=== PATIENT | male | born 1945 | race Caucasian/White ===

== ENCOUNTER 2017-04-30 09:17 | Inpatient (IN) | payer MEDICARE, OTHER ==
[~2017-04-30] VITALS: Ht 180.3 cm; Wt 85.3 kg
[2017-04-30] MEDS ORDERED: ACETAMINOPHEN 325 MG TABLET PO PRN (10:15)
[2017-04-30] MEDS ORDERED: MAG HYDROX/AL HYDROX/SIMETH 30 ML ORAL.SUSP PO PRN (10:15)
[2017-04-30] MEDS ORDERED: METHYL SALICYLATE/MENTHOL TOPICAL OINTMENT 29GM TUBE. TP PRN (10:15)
[2017-04-30 11:43] VITALS: BP 118/70
[2017-04-30] MEDS ORDERED: CALC-30 PO (11:49)
[2017-04-30] MEDS ORDERED: DOCU-109 PO (11:49)
[2017-04-30] MEDS ORDERED: OLAN5TAB5 PO (11:49)
[2017-04-30] MEDS ORDERED: DONE10TA61 PO (11:49)
[2017-04-30] MEDS ORDERED: MEMA1CAP3 PO (11:49)
[2017-04-30] MEDS ORDERED: SERT50TA PO (11:49)
[2017-04-30 13:46] LABS: BASO # 0.1 x10^3/uL (0.0-0.2); BASO % 1 % (0-3); EOS # 0.3 x10^3/uL (0.0-0.7); EOS % 5 % (0-3); HEMATOCRIT 36.5 % (39.0-53.0); LYMPH # 1.8 x10^3/uL (1.0-4.8); LYMPH % 31 % (24-48); MEAN CORPUSCULAR HEMOGLOBIN 30 pg (25-35); MEAN CORPUSCULAR HGB CONC 33 g/dL (31-37); MEAN CORPUSCULAR VOLUME 90 fL (79-100); MONO # 0.6 x10^3/uL (0.0-1.1); MONO % 10 % (0-9); NEUT % 53 % (31-73); PLATELET COUNT 67 x10^3/uL (140-400); RED BLOOD COUNT 4.06 x10^6/uL (4.30-5.70); RED CELL DISTRIBUTION WIDTH 15.5 % (11.5-14.5); WHITE BLOOD COUNT 5.8 x10^3/uL (4.0-11.0)
[2017-04-30 13:51] LABS: ALBUMIN 3.4 g/dL (3.4-5.0); ALBUMIN/GLOBULIN RATIO 0.9 (1.0-1.7); CALCIUM 8.9 mg/dL (8.5-10.1); CREATININE 1.3 mg/dL (0.7-1.3); GFR 54.4; MAGNESIUM 2.1 mg/dL (1.8-2.4); TOTAL BILIRUBIN 0.4 mg/dL (0.2-1.0); TOTAL PROTEIN 7.1 g/dL (6.4-8.2)
[2017-04-30] MEDS: NICOTINE 21MG PATCH. TD SCH (13:59)
[2017-04-30 14:22] LABS: PLT ESTIMATE DECREASED (ADEQUATE)
[2017-04-30 15:36] VITALS: BP 115/63
[2017-04-30] MEDS: CALCIUM CARB/VIT D3 500/200 TABLET PO SCH (17:40)
--- NOTE | 2017-04-30 19:18 | HP ---
ADMIT DATE: 04/30/2017 PSYCHIATRIC ADMISSION HISTORY/EVALUATION This note covers elements not covered in my initial note of 04/30/2017. IDENTIFYING DATA: The patient is a 71-year-old male referred to us from the Emergency Room at [facility] where he presented from the [facility] on account of increasing agitation, aggression after he "shoved a staff member." He is noncompliant with medications and redirections. He has failed outpatient psychiatric interventions. Initially information we received from the ER indicated that he was quite redirectable in the ER. I was called around 6:00 a.m. this morning. After reviewing all the information, we contacted the ER physician at [facility]. Reportedly, the patient while in the ER has been increasingly agitated, aggressive, disruptive. Received an IM atypical antipsychotic antianxiety agent to help him. He is referred for inpatient psychiatric stabilization. CHIEF COMPLAINT: "No." HISTORY OF PRESENT ILLNESS: The patient has a history of dementia, Alzheimer's vascular type. He has been residing at [place] for a short period of time prior to which he was living at home. He has been increasingly agitated, aggressive, having sleep and appetite changes. No active suicidal or homicidal ideation. No clear history of bipolar disorder. PAST PSYCHIATRIC HISTORY: As above. MEDICAL HISTORY: Peripheral arterial disease, hyperlipidemia, thrombocytopenia, and osteoarthritis. CODE STATUS: Full code. ALLERGIES: Negative. DIET: Regular finger foods. The patient takes bites of anything he is offered. Medications crushed in applesauce. CURRENT PSYCHOTROPICS: Aricept 10 mg a day, Namzaric 28/10 mg ER at bedtime, Zyprexa p.r.n., Zoloft 50 mg a day. As noted below, we have added Seroquel 12.5 mg at 9 a.m. and 2 p.m. to help with his mood lability. FAMILY HISTORY: Noncontributory. SOCIAL HISTORY: No history of alcohol, drug abuse, physical, sexual or elder abuse. He is not known to be a perpetrator. MENTAL STATUS EXAMINATION: The patient was seen individually the evening of 04/30/2017. He is oriented to himself. Insight, judgment, recent and remote memory, attention, concentration, fund of knowledge poor, consistent with his diagnosis. He is difficult to discern anything. The patient speaks verbally, quite disorganized, loose associations. REVIEW OF SYSTEMS: Reviewed. ASSETS: Stable living at the above facility, supportive family. REACTION TO HOSPITALIZATION: The patient oblivious to this. IMPRESSION: Major neurocognitive disorder, Alzheimer, vascular with depression, delusion, behavioral disturbance; anxiety disorder, unspecified; impulse control disorder, unspecified. Rest diagnoses unchanged from admission. TREATMENT PLAN: Admit to Geropsychiatry Unit at [facility]. I will see the patient daily individually from a psychiatric standpoint. Medical followup per Dr. Tellez/Dr. Jimenez. Continue the patient on his current psychotropics. Add the Seroquel as noted. Observe baseline. Make further changes as clinically indicated. JAKE SHIN MD DR: SHERON/nts JOB#: [id number] / [id number]
--- NOTE | 2017-04-30 19:58 | PDOC ---
Exam Note: Yifan Note: Please also refer to the separate dictated note~for this date of service dictated separately.~Patient seen individually. Discussed the patient with Nursing staff reviewed the chart.~Reviewed interim history and current functioning. Reviewed vital signs,~Labs/ Radiology~and current medications noted below. Continue current treatment with the changes noted in the dictated addendum note Assessment: Vital Signs: Vital Signs Date Time Temp Pulse Resp B/P (MAP) Pulse Ox O2 Delivery O2 Flow Rate FiO2 04/30/17 15:36 97.3 71 21 115/63 (80) 97 Labs: Laboratory Tests Test 04/30/17 13:24 White Blood Count 5.8 x10^3/uL (4.0-11.0) Red Blood Count 4.06 x10^6/uL (4.30-5.70) L Hemoglobin 12.0 g/dL (13.0-17.5) L Hematocrit 36.5 % (39.0-53.0) L Mean Corpuscular Volume 90 fL (79-100) Mean Corpuscular Hemoglobin 30 pg (25-35) Mean Corpuscular Hemoglobin Concent 33 g/dL (31-37) Red Cell Distribution Width 15.5 % (11.5-14.5) H Platelet Count 67 x10^3/uL (140-400) L Neutrophils (%) (Auto) 53 % (31-73) Lymphocytes (%) (Auto) 31 % (24-48) Monocytes (%) (Auto) 10 % (0-9) H Eosinophils (%) (Auto) 5 % (0-3) H Basophils (%) (Auto) 1 % (0-3) Neutrophils # (Auto) 3.0 x10^3uL (1.8-7.7) Lymphocytes # (Auto) 1.8 x10^3/uL (1.0-4.8) Monocytes # (Auto) 0.6 x10^3/uL (0.0-1.1) Eosinophils # (Auto) 0.3 x10^3/uL (0.0-0.7) Basophils # (Auto) 0.1 x10^3/uL (0.0-0.2) Platelet Estimate Decreased (ADEQUATE) Large Platelets Occ Sodium Level 144 mmol/L (136-145) Potassium Level 4.0 mmol/L (3.5-5.1) Chloride Level 109 mmol/L (98-107) H Carbon Dioxide Level 28 mmol/L (21-32) Anion Gap 7 (6-14) Blood Urea Nitrogen 28 mg/dL (8-26) H Creatinine 1.3 mg/dL (0.7-1.3) Estimated GFR (Cockcroft-Gault) 54.4 BUN/Creatinine Ratio 22 (6-20) H Glucose Level 85 mg/dL (70-99) Calcium Level 8.9 mg/dL (8.5-10.1) Magnesium Level 2.1 mg/dL (1.8-2.4) Total Bilirubin 0.4 mg/dL (0.2-1.0) Aspartate Amino Transferase (AST) 40 U/L (15-37) H Alanine Aminotransferase (ALT) 40 U/L (16-63) Alkaline Phosphatase 102 U/L (46-116) Total Protein 7.1 g/dL (6.4-8.2) Albumin 3.4 g/dL (3.4-5.0) Albumin/Globulin Ratio 0.9 (1.0-1.7) L Current Medications: Meds: Current Medications Acetaminophen (Tylenol) 650 mg PRN Q6HRS PRN PO PAIN / TEMP; Start 04/30/17 at 10:15 Multi-Ingredient Ointment (Analgesic [place]) 1 asha PRN QID PRN TP MUSCLE PAIN; Start 04/30/17 at 10:15 Al Hydroxide/Mg Hydroxide (Mylanta Plus Xs) 15 ml PRN AFTMEALHC PRN PO DYSPEPSIA; Start 04/30/17 at 10:15 Magnesium Hydroxide (Milk Of Magnesia) 2,400 mg PRN QHS PRN PO CONSTIPATION; Start 04/30/17 at 10:15 Nicotine (Nicoderm Cq 21mg) 1 patch DAILY TD Last administered on 04/30/17at 13: 59; Start 04/30/17 at 11:00 Olanzapine (ZyPREXA ZYDIS) 5 mg PRN Q2HR PRN PO ANXIETY / AGITATION; Start 04/30 at 11:45 Docusate Sodium (Colace) 100 mg BID PO ; Start 04/30/17 at 21:00 Donepezil HCl (Aricept) 10 mg QHS PO ; Start 04/30/17 at 21:00; Stop 04/30/17 at 21:00; Status DC Sertraline HCl (Zoloft) 50 mg DAILY PO ; Start 05/01/17 at 09:00 Calcium/Vitamin D (Oscal D 500mg/ 200uts) 1 tab BIDWMEALS PO Last administered on 04/30/17at 17:40; Start 04/30/17 at 17:00 Memantine (Namenda) 10 mg BID PO ; Start 04/30/17 at 21:00 Donepezil HCl (Aricept) 10 mg BID PO ; Start 04/30/17 at 21:00 Quetiapine Fumarate (SEROquel) 12.5 mg BID92 PO ; Start 05/01/17 at 09:00 Active Scripts Active Reported Zoloft (Sertraline Hcl) 50 Mg Tablet 50 Mg PO DAILY Colace (Docusate Sodium) 100 Mg Capsule 100 Mg PO BID Aricept (Donepezil Hcl) 10 Mg Tablet 10 Mg PO QHS Calcium 500 + Vit D 400 Tablet (Calcium Carbonate/Vitamin D3) 1 Each Tablet 1 Each PO BID Namzaric 28 mg-10 mg Capsule (Memantine HCl/Donepezil HCl) 1 Each Cap.spr.24 1 Each PO QHS I have reviewed the current psychotropics carefully including drug interactions. Risk benefit ratio favors no change other than as noted in my dictated progress note. Diagnosis: Problems: (1) Anxiety disorder (2) Dementia in Alzheimer's disease with delusions (3) Dementia in Alzheimer's disease with depression (4) Dementia, vascular, with delusions (5) Dementia, vascular, with depression (6) Impulse control disorder JAKE SHIN MD Apr 30, 2017 19:58
[2017-04-30] MEDS: DOCUSATE SODIUM 100 MG CAPSULE PO SCH (20:30)
[2017-04-30] MEDS: DONEPEZIL HCL 10 MG TABLET PO SCH (20:30)
[2017-04-30] MEDS: MEMANTINE 10 MG TABLET. PO SCH (20:30)
[2017-04-30] MEDS ORDERED: DONEPEZIL HCL 10 MG TABLET PO SCH (21:00)
[2017-05-01] MEDS ORDERED: OLAN5TAB9 PO (02:22)
[2017-05-01 03:16] LABS: HEMOGLOBIN A1C 5.3 % (4.8-5.6)
[2017-05-01 06:13] LABS: T3 TOTAL 98 ng/dL (71-180); THYROXINE 5.6 ug/dL (4.5-12.0)
[2017-05-01] MEDS: NICOTINE 21MG PATCH. TD SCH (09:31)
[2017-05-01] MEDS: CALCIUM CARB/VIT D3 500/200 TABLET PO SCH ×2 (09:31→13:57)
[2017-05-01] MEDS: QUEtiapine 25 MG TABLET. PO SCH ×3 (09:31→19:48)
[2017-05-01] MEDS: DOCUSATE SODIUM 100 MG CAPSULE PO SCH ×2 (09:31→19:46)
[2017-05-01] MEDS: DONEPEZIL HCL 10 MG TABLET PO SCH (09:31)
[2017-05-01] MEDS: MEMANTINE 10 MG TABLET. PO SCH (09:31)
[2017-05-01] MEDS: SERTRALINE 50 MG TABLET. PO SCH (09:31)
[2017-05-01 15:16] LABS: THYROID STIM HORMONE (TSH) 1.638 uIU/mL (0.358-3.740)
[2017-05-01 15:46] VITALS: BP 111/69
[2017-05-01] MEDS: OLANZapine 2.5 MG TABLET PO SCH (19:47)
--- NOTE | 2017-05-01 20:09 | PDOC ---
Exam Note: Yifan Note: Please also refer to the separate dictated note~for this date of service dictated separately.~Patient seen individually. Discussed the patient with Nursing staff reviewed the chart.~Reviewed interim history and current functioning. Reviewed vital signs,~Labs/ Radiology~and current medications noted below. Continue current treatment with the changes noted in the dictated addendum note Assessment: Vital Signs: Vital Signs Date Time Temp Pulse Resp B/P (MAP) Pulse Ox O2 Delivery O2 Flow Rate FiO2 05/01/17 15:46 98.0 81 16 111/69 (83) 97 I&O Intake and Output 05/01/17 07:00 Intake Total 240 ml Balance 240 ml Intake Oral 240 ml Current Medications: Meds: Current Medications Acetaminophen (Tylenol) 650 mg PRN Q6HRS PRN PO PAIN / TEMP; Start 04/30/17 at 10:15 Multi-Ingredient Ointment (Analgesic [place]) 1 asha PRN QID PRN TP MUSCLE PAIN; Start 04/30/17 at 10:15 Al Hydroxide/Mg Hydroxide (Mylanta Plus Xs) 15 ml PRN AFTMEALHC PRN PO DYSPEPSIA; Start 04/30/17 at 10:15 Magnesium Hydroxide (Milk Of Magnesia) 2,400 mg PRN QHS PRN PO CONSTIPATION; Start 04/30/17 at 10:15 Nicotine (Nicoderm Cq 21mg) 1 patch DAILY TD Last administered on 05/01/17at 09: 31; Start 04/30/17 at 11:00 Olanzapine (ZyPREXA ZYDIS) 5 mg PRN Q2HR PRN PO ANXIETY / AGITATION Last administered on 05/01/17at 17:48; Start 04/30/17 at 11:45 Docusate Sodium (Colace) 100 mg BID PO Last administered on 05/01/17at 19:46; Start 04/30/17 at 21:00 Donepezil HCl (Aricept) 10 mg QHS PO ; Start 04/30/17 at 21:00; Stop 04/30/17 at 21:00; Status DC Sertraline HCl (Zoloft) 50 mg DAILY PO Last administered on 05/01/17at 09:31; Start 05/01/17 at 09:00 Calcium/Vitamin D (Oscal D 500mg/ 200uts) 1 tab BIDWMEALS PO Last administered on 05/01/17 13:57; Start 04/30/17 at 17:00 Memantine (Namenda) 10 mg BID PO Last administered on 05/01/17 09:31; Start 04/30/17 at 21:00; Stop 05/01/17 at 18:16; Status DC Donepezil HCl (Aricept) 10 mg BID PO Last administered on 05/01/17 09:31; Start 04/30/17 at 21:00; Stop 05/01/17 at 18:16; Status DC Quetiapine Fumarate (SEROquel) 12.5 mg BID92 PO Last administered on 05/01/17 13:56; Start 05/01/17 at 09:00; Stop 05/01/17 at 18:16; Status DC Olanzapine (ZyPREXA) 2.5 mg HS PO Last administered on 05/01/17 19:47; Start at 21:00 Quetiapine Fumarate (SEROquel) 12.5 mg QID PO Last administered on 05/01/17at 19: 48; Start 05/01/17 at 21:00 Active Scripts Active Reported Olanzapine 5 Mg Tablet 2.5 Mg PO HS Zoloft (Sertraline Hcl) 50 Mg Tablet 50 Mg PO DAILY Colace (Docusate Sodium) 100 Mg Capsule 100 Mg PO BID Aricept (Donepezil Hcl) 10 Mg Tablet 10 Mg PO QHS Calcium 500 + Vit D 400 Tablet (Calcium Carbonate/Vitamin D3) 1 Each Tablet 1 Each PO BID Namzaric 28 mg-10 mg Capsule (Memantine HCl/Donepezil HCl) 1 Each Cap.spr.24 1 Each PO QHS I have reviewed the current psychotropics carefully including drug interactions. Risk benefit ratio favors no change other than as noted in my dictated progress note. Diagnosis: Problems: (1) Anxiety disorder (2) Dementia in Alzheimer's disease with delusions (3) Dementia in Alzheimer's disease with depression (4) Dementia, vascular, with delusions (5) Dementia, vascular, with depression (6) Impulse control disorder JAKE SHIN MD May 01, 2017 20:09
[2017-05-02 05:41] VITALS: BP 120/65
[2017-05-02] MEDS: DOCUSATE SODIUM 100 MG CAPSULE PO SCH ×2 (07:59→19:46)
[2017-05-02] MEDS: NICOTINE 21MG PATCH. TD SCH (07:59)
[2017-05-02] MEDS: QUEtiapine 25 MG TABLET. PO SCH ×4 (07:59→19:47)
[2017-05-02] MEDS: CALCIUM CARB/VIT D3 500/200 TABLET PO SCH ×2 (07:59→17:21)
[2017-05-02] MEDS: SERTRALINE 50 MG TABLET. PO SCH (07:59)
[2017-05-02 15:43] VITALS: BP 102/74
[2017-05-02] MEDS: OLANZapine 2.5 MG TABLET PO SCH (19:46)
--- NOTE | 2017-05-02 22:10 | PDOC ---
Exam Note: Yifan Note: Please also refer to the separate dictated note~for this date of service dictated separately.~Patient seen individually. Discussed the patient with Nursing staff reviewed the chart.~Reviewed interim history and current functioning. Reviewed vital signs,~Labs/ Radiology~and current medications noted below. Continue current treatment with the changes noted in the dictated addendum note Assessment: Vital Signs: Vital Signs Date Time Temp Pulse Resp B/P (MAP) Pulse Ox O2 Delivery O2 Flow Rate FiO2 05/02/17 15:43 97.2 77 20 102/74 (83) 95 Room Air I&O Intake and Output 05/02/17 06:59 Intake Total 780 ml Balance 780 ml Intake Oral 780 ml Current Medications: Meds: Current Medications Acetaminophen (Tylenol) 650 mg PRN Q6HRS PRN PO PAIN / TEMP; Start 04/30/17 at 10:15 Multi-Ingredient Ointment (Analgesic [place]) 1 asha PRN QID PRN TP MUSCLE PAIN; Start 04/30/17 at 10:15 Al Hydroxide/Mg Hydroxide (Mylanta Plus Xs) 15 ml PRN AFTMEALHC PRN PO DYSPEPSIA; Start 04/30/17 at 10:15 Magnesium Hydroxide (Milk Of Magnesia) 2,400 mg PRN QHS PRN PO CONSTIPATION; Start 04/30/17 at 10:15 Nicotine (Nicoderm Cq 21mg) 1 patch DAILY TD Last administered on 05/02/17at 07: 59; Start 04/30/17 at 11:00 Olanzapine (ZyPREXA ZYDIS) 5 mg PRN Q2HR PRN PO ANXIETY / AGITATION Last administered on 05/02/17at 00:00; Start 04/30/17 at 11:45 Docusate Sodium (Colace) 100 mg BID PO Last administered on 05/02/17at 19:46; Start 04/30/17 at 21:00 Donepezil HCl (Aricept) 10 mg QHS PO ; Start 04/30/17 at 21:00; Stop 04/30/17 at 21:00; Status DC Sertraline HCl (Zoloft) 50 mg DAILY PO Last administered on 05/02/17at 07:59; Start 05/01/17 at 09:00 Calcium/Vitamin D (Oscal D 500mg/ 200uts) 1 tab BIDWMEALS PO Last administered on 05/02/17at 17:21; Start 04/30/17 at 17:00 Memantine (Namenda) 10 mg BID PO Last administered on 05/01/17at 09:31; Start 04/30/17 at 21:00; Stop 05/01/17 at 18:16; Status DC Donepezil HCl (Aricept) 10 mg BID PO Last administered on 05/01/17at 09:31; Start 04/30/17 at 21:00; Stop 05/01/17 at 18:16; Status DC Quetiapine Fumarate (SEROquel) 12.5 mg BID92 PO Last administered on 05/01/17at 13:56; Start 05/01/17 at 09:00; Stop 05/01/17 at 18:16; Status DC Olanzapine (ZyPREXA) 2.5 mg HS PO Last administered on 05/02/17at 19:46; Start at 21:00 Quetiapine Fumarate (SEROquel) 12.5 mg QID PO Last administered on 05/02/17at 19: 47; Start 05/01/17 at 21:00 Active Scripts Active Reported Olanzapine 5 Mg Tablet 2.5 Mg PO HS Zoloft (Sertraline Hcl) 50 Mg Tablet 50 Mg PO DAILY Colace (Docusate Sodium) 100 Mg Capsule 100 Mg PO BID Aricept (Donepezil Hcl) 10 Mg Tablet 10 Mg PO QHS Calcium 500 + Vit D 400 Tablet (Calcium Carbonate/Vitamin D3) 1 Each Tablet 1 Each PO BID Namzaric 28 mg-10 mg Capsule (Memantine HCl/Donepezil HCl) 1 Each Cap.spr.24 1 Each PO QHS I have reviewed the current psychotropics carefully including drug interactions. Risk benefit ratio favors no change other than as noted in my dictated progress note. Diagnosis: Problems: (1) Anxiety disorder (2) Dementia in Alzheimer's disease with delusions (3) Dementia in Alzheimer's disease with depression (4) Dementia, vascular, with delusions (5) Dementia, vascular, with depression (6) Impulse control disorder JAKE SHIN MD May 02, 2017 22:10
[2017-05-03] MEDS: NICOTINE 21MG PATCH. TD SCH (10:01)
[2017-05-03] MEDS: QUEtiapine 25 MG TABLET. PO SCH ×4 (10:02→19:38)
[2017-05-03] MEDS: CALCIUM CARB/VIT D3 500/200 TABLET PO SCH ×2 (10:02→16:41)
[2017-05-03] MEDS: DOCUSATE SODIUM 100 MG CAPSULE PO SCH ×2 (10:02→19:38)
[2017-05-03] MEDS: SERTRALINE 50 MG TABLET. PO SCH (10:03)
[2017-05-03 16:23] VITALS: BP 176/91
[2017-05-03] MEDS: OLANZapine 2.5 MG TABLET PO SCH (19:38)
--- NOTE | 2017-05-03 19:38 | PN ---
DATE: 05/01/2017 PSYCHIATRIC PROGRESS NOTE This late entry of 05/01/2017 covers elements not covered in my initial note for 05/01/2017. SUBJECTIVE: I met with the patient evening of 05/01/2017. Discussed with nursing staff on two separate occasions earlier in the day after I was paged as an emergency on account of the patient's increased agitation. He has been agitated, aggressive, knocking, banging on the doors and trying to open them, banging on the nursing station wall throughout, threatened to throw the dinner out of the dinner cart, slept 5-1/2 hours previous evening, received Zyprexa Zydis x 2. REVIEW OF SYSTEMS: No CV, , pulmonary, eye, ENT system symptoms on review. Reliability poor. MENTAL STATUS EXAM: Oriented to himself. Insight, judgment, recent and remote memory, attention, concentration, fund of knowledge poor, consistent with his diagnosis. Extremely agitated, restless, labile. LABORATORY DATA: Reviewed. IMPRESSION: Major neurocognitive disorder, Alzheimer, vascular with depression, delusion, behavioral disturbance. Rest unchanged. PLAN: Increase Seroquel from 12.5 mg b.i.d. to 12.5 mg 4 times a day. Maintain rest of the psychotropics unchanged. Stop Aricept and Namenda, probably little therapeutic benefit at this stage of his dementia. MAN Tiago SHIN MD DR: SHERON/thuna JOB#: [id number] / [id number]
[2017-05-03] MEDS: traZODone 50 MG TABLET. PO PRN (19:42)
--- NOTE | 2017-05-03 19:45 | PN ---
DATE: 05/02/2017 This note covers the elements not covered in my initial note 05/02/2017. SUBJECTIVE: I met with the patient in the evening of 05/02/2017. The patient slept 3-1/4 hours previous evening. Previous night he was agitated with cares, aggressive, resistive to cares during the day today, not been physically hitting staff, compliant with medications, banging on the doors in the hallway and nursing station glass wall. Restless, anxious. REVIEW OF SYSTEMS: No CV, , pulmonary, eye, ENT system symptoms on review. Reliability poor. MENTAL STATUS EXAM: Oriented to himself. Insight, judgment, recent and remote memory, attention, concentration, fund of knowledge poor, consistent with his diagnosis. IMPRESSION: Major neurocognitive disorder, Alzheimer, vascular with depression, delusion, behavioral disturbance. Rest unchanged. PLAN: Continue psychotropics mentioned in my initial note. Adjust as indicated clinically. JAKE SHIN MD DR: SHERON/thuan JOB#: [id number] / [id number]
--- NOTE | 2017-05-03 20:13 | PDOC ---
Exam Note: Yifan Note: Please also refer to the separate dictated note~for this date of service dictated separately.~Patient seen individually. Discussed the patient with Nursing staff reviewed the chart.~Reviewed interim history and current functioning. Reviewed vital signs,~Labs/ Radiology~and current medications noted below. Continue current treatment with the changes noted in the dictated addendum note Assessment: Vital Signs: Vital Signs Date Time Temp Pulse Resp B/P (MAP) Pulse Ox O2 Delivery O2 Flow Rate FiO2 05/03/17 16:23 97.2 89 22 176/91 (119) 99 Room Air I&O Intake and Output 05/03/17 07:00 Intake Total 60 ml Balance 60 ml Intake Oral 60 ml # Voids 2 # Bowel Movements 1 Current Medications: Meds: Current Medications Acetaminophen (Tylenol) 650 mg PRN Q6HRS PRN PO PAIN / TEMP; Start 04/30/17 at 10:15 Multi-Ingredient Ointment (Analgesic [place]) 1 asha PRN QID PRN TP MUSCLE PAIN; Start 04/30/17 at 10:15 Al Hydroxide/Mg Hydroxide (Mylanta Plus Xs) 15 ml PRN AFTMEALHC PRN PO DYSPEPSIA; Start 04/30/17 at 10:15 Magnesium Hydroxide (Milk Of Magnesia) 2,400 mg PRN QHS PRN PO CONSTIPATION; Start 04/30/17 at 10:15 Nicotine (Nicoderm Cq 21mg) 1 patch DAILY TD Last administered on 05/03/17at 10: 01; Start 04/30/17 at 11:00 Olanzapine (ZyPREXA ZYDIS) 5 mg PRN Q2HR PRN PO ANXIETY / AGITATION Last administered on 05/02/17at 00:00; Start 04/30/17 at 11:45 Docusate Sodium (Colace) 100 mg BID PO Last administered on 05/03/17at 19:38; Start 04/30/17 at 21:00 Donepezil HCl (Aricept) 10 mg QHS PO ; Start 04/30/17 at 21:00; Stop 04/30/17 at 21:00; Status DC Sertraline HCl (Zoloft) 50 mg DAILY PO Last administered on 05/03/17at 10:03; Start 05/01/17 at 09:00 Calcium/Vitamin D (Oscal D 500mg/ 200uts) 1 tab BIDWMEALS PO Last administered on 05/03/17 16:41; Start 04/30/17 at 17:00 Memantine (Namenda) 10 mg BID PO Last administered on 05/01/17 09:31; Start 04/30/17 at 21:00; Stop 05/01/17 at 18:16; Status DC Donepezil HCl (Aricept) 10 mg BID PO Last administered on 05/01/17 09:31; Start 04/30/17 at 21:00; Stop 05/01/17 at 18:16; Status DC Quetiapine Fumarate (SEROquel) 12.5 mg BID92 PO Last administered on 05/01/17 13:56; Start 05/01/17 at 09:00; Stop 05/01/17 at 18:16; Status DC Olanzapine (ZyPREXA) 2.5 mg HS PO Last administered on 05/03/17at 19:38; Start at 21:00 Quetiapine Fumarate (SEROquel) 12.5 mg QID PO Last administered on 05/03/17 19: 38; Start 05/01/17 at 21:00 Mirtazapine (Remeron) 7.5 mg QHS PO Last administered on 05/03/17 19:41; Start 05/03/17 at 21:00 Trazodone HCl (Desyrel) 50 mg PRN QHS PRN PO INSOMNIA Last administered on 19:42; Start 05/03/17 at 18:15 Active Scripts Active Reported Olanzapine 5 Mg Tablet 2.5 Mg PO HS Zoloft (Sertraline Hcl) 50 Mg Tablet 50 Mg PO DAILY Colace (Docusate Sodium) 100 Mg Capsule 100 Mg PO BID Aricept (Donepezil Hcl) 10 Mg Tablet 10 Mg PO QHS Calcium 500 + Vit D 400 Tablet (Calcium Carbonate/Vitamin D3) 1 Each Tablet 1 Each PO BID Namzaric 28 mg-10 mg Capsule (Memantine HCl/Donepezil HCl) 1 Each Cap.spr.24 1 Each PO QHS I have reviewed the current psychotropics carefully including drug interactions. Risk benefit ratio favors no change other than as noted in my dictated progress note. Diagnosis: Problems: (1) Anxiety disorder (2) Dementia in Alzheimer's disease with delusions (3) Dementia in Alzheimer's disease with depression (4) Dementia, vascular, with delusions (5) Dementia, vascular, with depression (6) Impulse control disorder JAKE SHIN MD May 03, 2017 20:13
[2017-05-03] MEDS ORDERED: MIRTAZAPINE 7.5 MG TABLET. PO SCH (21:00)
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
[2017-05-04] MEDS: DOCUSATE SODIUM 100 MG CAPSULE PO SCH ×2 (08:26→20:17)
[2017-05-04] MEDS: QUEtiapine 25 MG TABLET. PO SCH ×4 (08:26→20:18)
[2017-05-04] MEDS: NICOTINE 21MG PATCH. TD SCH (08:26)
[2017-05-04] MEDS: SERTRALINE 50 MG TABLET. PO SCH (08:28)
[2017-05-04] MEDS: CALCIUM CARB/VIT D3 500/200 TABLET PO SCH ×2 (08:28→16:18)
[2017-05-04 15:32] VITALS: BP 157/70
--- NOTE | 2017-05-04 20:04 | PDOC ---
Exam Note: Yifan Note: Please also refer to the separate dictated note~for this date of service dictated separately.~Patient seen individually. Discussed the patient with Nursing staff reviewed the chart.~Reviewed interim history and current functioning. Reviewed vital signs,~Labs/ Radiology~and current medications noted below. Continue current treatment with the changes noted in the dictated addendum note Assessment: Vital Signs: Vital Signs Date Time Temp Pulse Resp B/P (MAP) Pulse Ox O2 Delivery O2 Flow Rate FiO2 05/04/17 15:32 97.4 82 20 157/70 (99) 100 05/03/17 16:23 Room Air I&O Intake and Output 05/04/17 07:00 Intake Total 600 ml Balance 600 ml Intake Oral 600 ml Current Medications: Meds: Current Medications Acetaminophen (Tylenol) 650 mg PRN Q6HRS PRN PO PAIN / TEMP; Start 04/30/17 at 10:15 Multi-Ingredient Ointment (Analgesic [place]) 1 asha PRN QID PRN TP MUSCLE PAIN; Start 04/30/17 at 10:15 Al Hydroxide/Mg Hydroxide (Mylanta Plus Xs) 15 ml PRN AFTMEALHC PRN PO DYSPEPSIA; Start 04/30/17 at 10:15 Magnesium Hydroxide (Milk Of Magnesia) 2,400 mg PRN QHS PRN PO CONSTIPATION; Start 04/30/17 at 10:15 Nicotine (Nicoderm Cq 21mg) 1 patch DAILY TD Last administered on 05/04/17at 08: 26; Start 04/30/17 at 11:00 Olanzapine (ZyPREXA ZYDIS) 5 mg PRN Q2HR PRN PO ANXIETY / AGITATION Last administered on 05/04/17at 14:57; Start 04/30/17 at 11:45 Docusate Sodium (Colace) 100 mg BID PO Last administered on 05/04/17at 08:26; Start 04/30/17 at 21:00 Donepezil HCl (Aricept) 10 mg QHS PO ; Start 04/30/17 at 21:00; Stop 04/30/17 at 21:00; Status DC Sertraline HCl (Zoloft) 50 mg DAILY PO Last administered on 05/04/17at 08:28; Start 05/01/17 at 09:00 Calcium/Vitamin D (Oscal D 500mg/ 200uts) 1 tab BIDWMEALS PO Last administered on 05/04/17 08:28; Start 04/30/17 at 17:00 Memantine (Namenda) 10 mg BID PO Last administered on 05/01/17at 09:31; Start 04/30/17 at 21:00; Stop 05/01/17 at 18:16; Status DC Donepezil HCl (Aricept) 10 mg BID PO Last administered on 05/01/17 09:31; Start 04/30/17 at 21:00; Stop 05/01/17 at 18:16; Status DC Quetiapine Fumarate (SEROquel) 12.5 mg BID92 PO Last administered on 05/01/17at 13:56; Start 05/01/17 at 09:00; Stop 05/01/17 at 18:16; Status DC Olanzapine (ZyPREXA) 2.5 mg HS PO Last administered on 05/03/17at 19:38; Start at 21:00 Quetiapine Fumarate (SEROquel) 12.5 mg QID PO Last administered on 05/04/17at 17: 02; Start 05/01/17 at 21:00; Stop 05/04/17 at 18:04; Status DC Mirtazapine (Remeron) 7.5 mg QHS PO Last administered on 05/03/17at 19:41; Start 05/03/17 at 21:00; Stop 05/04/17 at 18:04; Status DC Trazodone HCl (Desyrel) 50 mg PRN QHS PRN PO INSOMNIA Last administered on at 19:42; Start 05/03/17 at 18:15 Mirtazapine (Remeron) 15 mg QHS PO ; Start 05/04/17 at 21:00 Quetiapine Fumarate (SEROquel) 12.5 mg BID@1300,2100 PO ; Start 05/04/17 at 21:00 Quetiapine Fumarate (SEROquel) 25 mg BID@0900,1700 PO ; Start 05/05/17 at 09:00 Active Scripts Active Reported Olanzapine 5 Mg Tablet 2.5 Mg PO HS Zoloft (Sertraline Hcl) 50 Mg Tablet 50 Mg PO DAILY Colace (Docusate Sodium) 100 Mg Capsule 100 Mg PO BID Aricept (Donepezil Hcl) 10 Mg Tablet 10 Mg PO QHS Calcium 500 + Vit D 400 Tablet (Calcium Carbonate/Vitamin D3) 1 Each Tablet 1 Each PO BID Namzaric 28 mg-10 mg Capsule (Memantine HCl/Donepezil HCl) 1 Each Cap.spr.24 1 Each PO QHS I have reviewed the current psychotropics carefully including drug interactions. Risk benefit ratio favors no change other than as noted in my dictated progress note. Diagnosis: Problems: (1) Anxiety disorder (2) Dementia in Alzheimer's disease with delusions (3) Dementia in Alzheimer's disease with depression (4) Dementia, vascular, with delusions (5) Dementia, vascular, with depression (6) Impulse control disorder JAEK SHIN MD May 04, 2017 20:04
[2017-05-04] MEDS: OLANZapine 2.5 MG TABLET PO SCH (20:18)
[2017-05-04] MEDS: MIRTAZAPINE 15 MG TABLET PO SCH (20:20)
[2017-05-04] MEDS: traZODone 50 MG TABLET. PO PRN (20:20)
--- NOTE | 2017-05-05 02:37 | PN ---
DATE: 05/03/2017 This is a late entry for 05/03/2017 covers elements not covered in my initial note of 05/03/2017. SUBJECTIVE: I met with the patient in the evening of 05/03/2017. Overall, per nursing report, the patient remains confused, but is doing better. In the morning, he had to be isolated in the [place], resistive with changing his clothes. Previous evening, he was combative with showers, quite disruptive, less door checking noted on 05/03/2017. He slept just 1-3/4 hours previous evening. REVIEW OF SYSTEMS: No CV, , pulmonary, eye, ENT system symptoms on review. Reliability poor. MENTAL STATUS EXAM: Oriented to himself. Insight, judgment, recent and remote memory, attention, concentration, fund of knowledge poor, consistent with his diagnosis mentioned in my initial note. IMPRESSION: Major neurocognitive disorder, Alzheimer, vascular with depression, delusion, behavioral disturbance. Rest unchanged. PLAN: Continue psychotropics mentioned in my initial note, start Remeron 7.5 mg p.o. at bedtime, trazodone 50 mg at bedtime p.r.n., may repeat x 1 for insomnia. Adjust further as clinically indicated. JAKE SHIN MD DR: SHERON/thuan JOB#: [id number] / [id number]
[2017-05-05 06:16] VITALS: BP 109/70
[2017-05-05] MEDS: DOCUSATE SODIUM 100 MG CAPSULE PO SCH ×3 (10:20→21:01)
[2017-05-05] MEDS: CALCIUM CARB/VIT D3 500/200 TABLET PO SCH ×2 (10:20→16:57)
[2017-05-05] MEDS: QUEtiapine 25 MG TABLET. PO SCH ×4 (10:20→21:01)
[2017-05-05] MEDS: SERTRALINE 50 MG TABLET. PO SCH (10:20)
[2017-05-05] MEDS: NICOTINE 21MG PATCH. TD SCH (10:29)
--- NOTE | 2017-05-05 20:06 | PDOC ---
Exam Note: Yifan Note: Please also refer to the separate dictated note~for this date of service dictated separately.~Patient seen individually. Discussed the patient with Nursing staff reviewed the chart.~Reviewed interim history and current functioning. Reviewed vital signs,~Labs/ Radiology~and current medications noted below. Continue current treatment with the changes noted in the dictated addendum note Assessment: Vital Signs: Vital Signs Date Time Temp Pulse Resp B/P (MAP) Pulse Ox O2 Delivery O2 Flow Rate FiO2 05/05/17 16:08 98.0 83 19 98 05/05/17 06:16 109/70 (83) 05/03/17 16:23 Room Air I&O Intake and Output 05/05/17 07:00 Intake Total 360 ml Balance 360 ml Intake Oral 360 ml Current Medications: Meds: Current Medications Acetaminophen (Tylenol) 650 mg PRN Q6HRS PRN PO PAIN / TEMP; Start 04/30/17 at 10:15 Multi-Ingredient Ointment (Analgesic [place]) 1 asha PRN QID PRN TP MUSCLE PAIN; Start 04/30/17 at 10:15 Al Hydroxide/Mg Hydroxide (Mylanta Plus Xs) 15 ml PRN AFTMEALHC PRN PO DYSPEPSIA; Start 04/30/17 at 10:15 Magnesium Hydroxide (Milk Of Magnesia) 2,400 mg PRN QHS PRN PO CONSTIPATION; Start 04/30/17 at 10:15 Nicotine (Nicoderm Cq 21mg) 1 patch DAILY TD Last administered on 05/05/17at 10: 29; Start 04/30/17 at 11:00 Olanzapine (ZyPREXA ZYDIS) 5 mg PRN Q2HR PRN PO ANXIETY / AGITATION Last administered on 05/04/17at 14:57; Start 04/30/17 at 11:45 Docusate Sodium (Colace) 100 mg BID PO Last administered on 05/04/17at 20:17; Start 04/30/17 at 21:00 Donepezil HCl (Aricept) 10 mg QHS PO ; Start 04/30/17 at 21:00; Stop 04/30/17 at 21:00; Status DC Sertraline HCl (Zoloft) 50 mg DAILY PO Last administered on 05/04/17at 08:28; Start 05/01/17 at 09:00; Stop 05/05/17 at 19:11; Status DC Calcium/Vitamin D (Oscal D 500mg/ 200uts) 1 tab BIDWMEALS PO Last administered on 05/05/17 16:57; Start 04/30/17 at 17:00 Memantine (Namenda) 10 mg BID PO Last administered on 05/01/17 09:31; Start 04/30/17 at 21:00; Stop 05/01/17 at 18:16; Status DC Donepezil HCl (Aricept) 10 mg BID PO Last administered on 05/01/17 09:31; Start 04/30/17 at 21:00; Stop 05/01/17 at 18:16; Status DC Quetiapine Fumarate (SEROquel) 12.5 mg BID92 PO Last administered on 05/01/17 13:56; Start 05/01/17 at 09:00; Stop 05/01/17 at 18:16; Status DC Olanzapine (ZyPREXA) 2.5 mg HS PO Last administered on 05/04/17 20:18; Start at 21:00 Quetiapine Fumarate (SEROquel) 12.5 mg QID PO Last administered on 05/04/17 17: 02; Start 05/01/17 at 21:00; Stop 05/04/17 at 18:04; Status DC Mirtazapine (Remeron) 7.5 mg QHS PO Last administered on 05/03/17at 19:41; Start 05/03/17 at 21:00; Stop 05/04/17 at 18:04; Status DC Trazodone HCl (Desyrel) 50 mg PRN QHS PRN PO INSOMNIA Last administered on at 20:20; Start 05/03/17 at 18:15; Stop 05/05/17 at 19:11; Status DC Mirtazapine (Remeron) 15 mg QHS PO Last administered on 05/04/17at 20:20; Start 05/04/17 at 21:00 Quetiapine Fumarate (SEROquel) 12.5 mg BID@1300,2100 PO Last administered on 05/05/17at 12:59; Start 05/04/17 at 21:00 Quetiapine Fumarate (SEROquel) 25 mg BID@0900,1700 PO Last administered on at 16:57; Start 05/05/17 at 09:00 Sertraline HCl (Zoloft) 75 mg DAILY PO ; Start 05/06/17 at 09:00 Trazodone HCl (Desyrel) 100 mg PRN QHS PRN PO INSOMNIA/MAY REPEAT X1; Start 05/05/17 at 19:30 Active Scripts Active Reported Olanzapine 5 Mg Tablet 2.5 Mg PO HS Zoloft (Sertraline Hcl) 50 Mg Tablet 50 Mg PO DAILY Colace (Docusate Sodium) 100 Mg Capsule 100 Mg PO BID Aricept (Donepezil Hcl) 10 Mg Tablet 10 Mg PO QHS Calcium 500 + Vit D 400 Tablet (Calcium Carbonate/Vitamin D3) 1 Each Tablet 1 Each PO BID Namzaric 28 mg-10 mg Capsule (Memantine HCl/Donepezil HCl) 1 Each Cap.spr.24 1 Each PO QHS I have reviewed the current psychotropics carefully including drug interactions. Risk benefit ratio favors no change other than as noted in my dictated progress note. Diagnosis: Problems: (1) Anxiety disorder (2) Dementia in Alzheimer's disease with delusions (3) Dementia in Alzheimer's disease with depression (4) Dementia, vascular, with delusions (5) Dementia, vascular, with depression (6) Impulse control disorder JAKE SHIN MD May 05, 2017 20:06
[2017-05-05] MEDS: MIRTAZAPINE 15 MG TABLET PO SCH (21:00)
[2017-05-05] MEDS: OLANZapine 2.5 MG TABLET PO SCH (21:01)
[2017-05-06] MEDS: traZODone 100 MG TABLET. PO PRN ×2 (00:52→23:22)
[2017-05-06 06:20] VITALS: BP 127/63
--- NOTE | 2017-05-06 08:43 | PN ---
DATE: 05/04/2017 This is a late entry 05/04/2017 covers elements not covered in my initial note 05/04/2017. I met with the patient in the evening of 05/04/2017. Per the patient, he [place] most [place] the [place], agitated, labile in his mood banging his head on the wall, at times resistive to get out of bed, takes his meds in ice cream. Slept 4-1/2 hours previous evening. REVIEW OF SYSTEMS: No CV, , pulmonary, eye, ENT system symptoms on review. Reliability poor. MENTAL STATUS EXAM: Oriented to himself. Insight, judgment, recent and remote memory, attention, concentration, fund of knowledge poor, consistent with his diagnosis mentioned in my initial note. IMPRESSION: Major neurocognitive disorder, Alzheimer, vascular with depression, delusion, behavioral disturbance. Rest unchanged from initial note. PLAN: Increase Remeron to 15 mg at bedtime, Seroquel is 12.5 mg 4 times a day and we will increase the 0900 and 1700 dosages to 25 mg, leave the other 2 dosages 12.5 mg. Maintain rest of the psychotropics including Zoloft 50 mg a day. JAKE SHIN MD DR: SHERON/thuan JOB#: [id number] / [id number]
[2017-05-06] MEDS: QUEtiapine 25 MG TABLET. PO SCH ×4 (09:33→19:44)
[2017-05-06] MEDS: DOCUSATE SODIUM 100 MG CAPSULE PO SCH ×2 (09:33→19:43)
[2017-05-06] MEDS: NICOTINE 21MG PATCH. TD SCH (09:33)
[2017-05-06] MEDS: CALCIUM CARB/VIT D3 500/200 TABLET PO SCH ×2 (09:33→16:46)
[2017-05-06] MEDS: SERTRALINE 50 MG TABLET. PO SCH (09:35)
[2017-05-06 16:14] VITALS: BP 132/74
[2017-05-06] MEDS: OLANZapine 2.5 MG TABLET PO SCH (19:44)
[2017-05-06] MEDS: MIRTAZAPINE 15 MG TABLET PO SCH (19:44)
[2017-05-06] MEDS: MELATONIN 3 MG TABLET PO SCH (19:45)
--- NOTE | 2017-05-06 19:48 | PDOC ---
Exam Note: Yifan Note: Please also refer to the separate dictated note~for this date of service dictated separately.~Patient seen individually. Discussed the patient with Nursing staff reviewed the chart.~Reviewed interim history and current functioning. Reviewed vital signs,~Labs/ Radiology~and current medications noted below. Continue current treatment with the changes noted in the dictated addendum note Assessment: Vital Signs: Vital Signs Date Time Temp Pulse Resp B/P (MAP) Pulse Ox O2 Delivery O2 Flow Rate FiO2 05/06/17 16:14 97.8 84 18 132/74 (93) 95 05/03/17 16:23 Room Air I&O Intake and Output 05/06/17 07:00 Intake Total 840 ml Balance 840 ml Intake Oral 840 ml Current Medications: Meds: Current Medications Acetaminophen (Tylenol) 650 mg PRN Q6HRS PRN PO PAIN / TEMP; Start 04/30/17 at 10:15 Multi-Ingredient Ointment (Analgesic [place]) 1 asha PRN QID PRN TP MUSCLE PAIN; Start 04/30/17 at 10:15 Al Hydroxide/Mg Hydroxide (Mylanta Plus Xs) 15 ml PRN AFTMEALHC PRN PO DYSPEPSIA; Start 04/30/17 at 10:15 Magnesium Hydroxide (Milk Of Magnesia) 2,400 mg PRN QHS PRN PO CONSTIPATION; Start 04/30/17 at 10:15 Nicotine (Nicoderm Cq 21mg) 1 patch DAILY TD Last administered on 05/06/17at 09: 33; Start 04/30/17 at 11:00 Olanzapine (ZyPREXA ZYDIS) 5 mg PRN Q2HR PRN PO ANXIETY / AGITATION Last administered on 05/06/17at 02:46; Start 04/30/17 at 11:45 Docusate Sodium (Colace) 100 mg BID PO Last administered on 05/06/17at 19:43; Start 04/30/17 at 21:00 Donepezil HCl (Aricept) 10 mg QHS PO ; Start 04/30/17 at 21:00; Stop 04/30/17 at 21:00; Status DC Sertraline HCl (Zoloft) 50 mg DAILY PO Last administered on 05/04/17at 08:28; Start 05/01/17 at 09:00; Stop 05/05/17 at 19:11; Status DC Calcium/Vitamin D (Oscal D 500mg/ 200uts) 1 tab BIDWMEALS PO Last administered on 05/06/17at 16:46; Start 04/30/17 at 17:00 Memantine (Namenda) 10 mg BID PO Last administered on 05/01/17at 09:31; Start 04/30/17 at 21:00; Stop 05/01/17 at 18:16; Status DC Donepezil HCl (Aricept) 10 mg BID PO Last administered on 05/01/17at 09:31; Start 04/30/17 at 21:00; Stop 05/01/17 at 18:16; Status DC Quetiapine Fumarate (SEROquel) 12.5 mg BID92 PO Last administered on 05/01/17at 13:56; Start 05/01/17 at 09:00; Stop 05/01/17 at 18:16; Status DC Olanzapine (ZyPREXA) 2.5 mg HS PO Last administered on 05/06/17at 19:44; Start 05/01/17 at 21:00 Quetiapine Fumarate (SEROquel) 12.5 mg QID PO Last administered on 05/04/17at 17: 02; Start 05/01/17 at 21:00; Stop 05/04/17 at 18:04; Status DC Mirtazapine (Remeron) 7.5 mg QHS PO Last administered on 05/03/17at 19:41; Start 05/03/17 at 21:00; Stop 05/04/17 at 18:04; Status DC Trazodone HCl (Desyrel) 50 mg PRN QHS PRN PO INSOMNIA Last administered on at 20:20; Start 05/03/17 at 18:15; Stop 05/05/17 at 19:11; Status DC Mirtazapine (Remeron) 15 mg QHS PO Last administered on 05/06/17at 19:44; Start 05/04/17 at 21:00 Quetiapine Fumarate (SEROquel) 12.5 mg BID@1300,2100 PO Last administered on 02/11at 19:44; Start 05/04/17 at 21:00 Quetiapine Fumarate (SEROquel) 25 mg BID@0900,1700 PO Last administered on 05/06at 16:46; Start 05/05/17 at 09:00 Sertraline HCl (Zoloft) 75 mg DAILY PO Last administered on 05/06/17at 09:35; Start 05/06/17 at 09:00 Trazodone HCl (Desyrel) 100 mg PRN QHS PRN PO INSOMNIA/MAY REPEAT X1 Last administered on 05/06/17at 00:52; Start 05/05/17 at 19:30 Melatonin 3 mg QHS PO Last administered on 05/06/17at 19:45; Start 05/06/17 at 21:00 Active Scripts Active Reported Olanzapine 5 Mg Tablet 2.5 Mg PO HS Zoloft (Sertraline Hcl) 50 Mg Tablet 50 Mg PO DAILY Colace (Docusate Sodium) 100 Mg Capsule 100 Mg PO BID Aricept (Donepezil Hcl) 10 Mg Tablet 10 Mg PO QHS Calcium 500 + Vit D 400 Tablet (Calcium Carbonate/Vitamin D3) 1 Each Tablet 1 Each PO BID Namzaric 28 mg-10 mg Capsule (Memantine HCl/Donepezil HCl) 1 Each Cap.spr.24 1 Each PO QHS I have reviewed the current psychotropics carefully including drug interactions. Risk benefit ratio favors no change other than as noted in my dictated progress note. Diagnosis: Problems: (1) Anxiety disorder (2) Dementia in Alzheimer's disease with delusions (3) Dementia in Alzheimer's disease with depression (4) Dementia, vascular, with delusions (5) Dementia, vascular, with depression (6) Impulse control disorder JAKE SHIN MD May 06, 2017 19:48
--- NOTE | 2017-05-07 03:58 | PN ---
DATE: 05/05/2017 This is a late entry for 05/05/2017, covers elements not covered in my initial note of 05/05/2017. SUBJECTIVE: I met with the patient the evening of 05/05/2017. The patient slept less than 1 hour last night, but then made up with sleeping well into the morning until 11:30 a.m. on 05/05/2016. All night he was up wandering, remains confused. REVIEW OF SYSTEMS: No CV, , pulmonary, eye, ENT system symptoms on review. Reliability poor. MENTAL STATUS EXAMINATION: Oriented to himself. Insight, judgment, recent and remote memory, attention, concentration, fund of knowledge poor, consistent with his diagnosis mentioned in my initial note. IMPRESSION: Major neurocognitive disorder, Alzheimer, vascular with depression, delusion, behavioral disturbance. Rest unchanged. PLAN: Increase Zoloft from 50 mg a day to 75 mg a day; trazodone from 50 mg at bedtime p.r.n., may repeat x 1, to 100 mg at bedtime p.r.n., may repeat x 1. Continue rest unchanged including Seroquel. Adjust further as clinically indicated. MAN Tiago SHIN MD DR: SHERON/thuan JOB#: [id number] / [id number]
[2017-05-07 06:00] VITALS: BP 109/71
[2017-05-07] MEDS: MAGNESIUM HYDROXIDE 2,400 MG/30 ML ORAL.SUSP. PO PRN (09:12)
[2017-05-07] MEDS: CALCIUM CARB/VIT D3 500/200 TABLET PO SCH ×2 (09:12→16:43)
[2017-05-07] MEDS: NICOTINE 21MG PATCH. TD SCH (09:12)
[2017-05-07] MEDS: DOCUSATE SODIUM 100 MG CAPSULE PO SCH ×2 (09:12→20:06)
[2017-05-07] MEDS: QUEtiapine 25 MG TABLET. PO SCH ×4 (09:13→20:07)
[2017-05-07] MEDS: SERTRALINE 50 MG TABLET. PO SCH (09:13)
[2017-05-07 09:15] LABS: BASO # 0.1 x10^3/uL (0.0-0.2); BASO % 1 % (0-3); EOS # 0.3 x10^3/uL (0.0-0.7); EOS % 4 % (0-3); HEMATOCRIT 35.2 % (39.0-53.0); HEMOGLOBIN 11.7 g/dL (13.0-17.5); LYMPH # 1.9 x10^3/uL (1.0-4.8); LYMPH % 29 % (24-48); MEAN CORPUSCULAR HEMOGLOBIN 30 pg (25-35); MEAN CORPUSCULAR HGB CONC 33 g/dL (31-37); MEAN CORPUSCULAR VOLUME 91 fL (79-100); MONO # 0.8 x10^3/uL (0.0-1.1); MONO % 12 % (0-9); NEUT # 3.6 x10^3uL (1.8-7.7); NEUT % 55 % (31-73); PLATELET COUNT 83 x10^3/uL (140-400); RED BLOOD COUNT 3.88 x10^6/uL (4.30-5.70); RED CELL DISTRIBUTION WIDTH 15.2 % (11.5-14.5); WHITE BLOOD COUNT 6.6 x10^3/uL (4.0-11.0)
[2017-05-07 09:35] LABS: ALBUMIN 3.6 g/dL (3.4-5.0); ALBUMIN/GLOBULIN RATIO 0.9 (1.0-1.7); CALCIUM 9.4 mg/dL (8.5-10.1); CREATININE 1.6 mg/dL (0.7-1.3); GFR 42.8; POTASSIUM 3.8 mmol/L (3.5-5.1); TOTAL BILIRUBIN 0.5 mg/dL (0.2-1.0); TOTAL PROTEIN 7.5 g/dL (6.4-8.2)
[2017-05-07] MEDS: DIVALPROEX 125 MG CAP.SPRINK PO SCH (13:10)
[2017-05-07 15:47] VITALS: BP 106/70
--- NOTE | 2017-05-07 19:57 | PDOC ---
Exam Note: Yifan Note: Please also refer to the separate dictated note~for this date of service dictated separately.~Patient seen individually. Discussed the patient with Nursing staff reviewed the chart.~Reviewed interim history and current functioning. Reviewed vital signs,~Labs/ Radiology~and current medications noted below. Continue current treatment with the changes noted in the dictated addendum note Assessment: Vital Signs: Vital Signs Date Time Temp Pulse Resp B/P (MAP) Pulse Ox O2 Delivery O2 Flow Rate FiO2 05/07/17 15:47 97.8 92 20 106/70 (82) 98 05/03/17 16:23 Room Air I&O Intake and Output 05/07/17 07:00 Intake Total 480 ml Balance 480 ml Intake Oral 480 ml Labs: Laboratory Tests Test 05/07/17 09:02 White Blood Count 6.6 x10^3/uL (4.0-11.0) Red Blood Count 3.88 x10^6/uL (4.30-5.70) L Hemoglobin 11.7 g/dL (13.0-17.5) L Hematocrit 35.2 % (39.0-53.0) L Mean Corpuscular Volume 91 fL (79-100) Mean Corpuscular Hemoglobin 30 pg (25-35) Mean Corpuscular Hemoglobin Concent 33 g/dL (31-37) Red Cell Distribution Width 15.2 % (11.5-14.5) H Platelet Count 83 x10^3/uL (140-400) L Neutrophils (%) (Auto) 55 % (31-73) Lymphocytes (%) (Auto) 29 % (24-48) Monocytes (%) (Auto) 12 % (0-9) H Eosinophils (%) (Auto) 4 % (0-3) H Basophils (%) (Auto) 1 % (0-3) Neutrophils # (Auto) 3.6 x10^3uL (1.8-7.7) Lymphocytes # (Auto) 1.9 x10^3/uL (1.0-4.8) Monocytes # (Auto) 0.8 x10^3/uL (0.0-1.1) Eosinophils # (Auto) 0.3 x10^3/uL (0.0-0.7) Basophils # (Auto) 0.1 x10^3/uL (0.0-0.2) Sodium Level 146 mmol/L (136-145) H Potassium Level 3.8 mmol/L (3.5-5.1) Chloride Level 109 mmol/L (98-107) H Carbon Dioxide Level 28 mmol/L (21-32) Anion Gap 9 (6-14) Blood Urea Nitrogen 31 mg/dL (8-26) H Creatinine 1.6 mg/dL (0.7-1.3) H Estimated GFR (Cockcroft-Gault) 42.8 BUN/Creatinine Ratio 19 (6-20) Glucose Level 137 mg/dL (70-99) H Calcium Level 9.4 mg/dL (8.5-10.1) Magnesium Level 2.0 mg/dL (1.8-2.4) Total Bilirubin 0.5 mg/dL (0.2-1.0) Aspartate Amino Transferase (AST) 29 U/L (15-37) Alanine Aminotransferase (ALT) 33 U/L (16-63) Alkaline Phosphatase 112 U/L (46-116) Total Protein 7.5 g/dL (6.4-8.2) Albumin 3.6 g/dL (3.4-5.0) Albumin/Globulin Ratio 0.9 (1.0-1.7) L Current Medications: Meds: Current Medications Acetaminophen (Tylenol) 650 mg PRN Q6HRS PRN PO PAIN / TEMP; Start 04/30/17 at 10:15 Multi-Ingredient Ointment (Analgesic [place]) 1 asha PRN QID PRN TP MUSCLE PAIN; Start 04/30/17 at 10:15 Al Hydroxide/Mg Hydroxide (Mylanta Plus Xs) 15 ml PRN AFTMEALHC PRN PO DYSPEPSIA; Start 04/30/17 at 10:15 Magnesium Hydroxide (Milk Of Magnesia) 2,400 mg PRN QHS PRN PO CONSTIPATION Last administered on 05/07/17at 09:12; Start 04/30/17 at 10:15 Nicotine (Nicoderm Cq 21mg) 1 patch DAILY TD Last administered on 05/07/17at 09: 12; Start 04/30/17 at 11:00 Olanzapine (ZyPREXA ZYDIS) 5 mg PRN Q2HR PRN PO ANXIETY / AGITATION Last administered on 05/06/17at 02:46; Start 04/30/17 at 11:45 Docusate Sodium (Colace) 100 mg BID PO Last administered on 05/07/17at 09:12; Start 04/30/17 at 21:00 Donepezil HCl (Aricept) 10 mg QHS PO ; Start 04/30/17 at 21:00; Stop 04/30/17 at 21:00; Status DC Sertraline HCl (Zoloft) 50 mg DAILY PO Last administered on 05/04/17at 08:28; Start 05/01/17 at 09:00; Stop 05/05/17 at 19:11; Status DC Calcium/Vitamin D (Oscal D 500mg/ 200uts) 1 tab BIDWMEALS PO Last administered on 05/07/17at 16:43; Start 04/30/17 at 17:00 Memantine (Namenda) 10 mg BID PO Last administered on 05/01/17at 09:31; Start 04/30/17 at 21:00; Stop 05/01/17 at 18:16; Status DC Donepezil HCl (Aricept) 10 mg BID PO Last administered on 05/01/17at 09:31; Start 04/30/17 at 21:00; Stop 05/01/17 at 18:16; Status DC Quetiapine Fumarate (SEROquel) 12.5 mg BID92 PO Last administered on 05/01/17at 13:56; Start 05/01/17 at 09:00; Stop 05/01/17 at 18:16; Status DC Olanzapine (ZyPREXA) 2.5 mg HS PO Last administered on 05/06/17at 19:44; Start 05/01/17 at 21:00 Quetiapine Fumarate (SEROquel) 12.5 mg QID PO Last administered on 05/04/17at 17: 02; Start 05/01/17 at 21:00; Stop 05/04/17 at 18:04; Status DC Mirtazapine (Remeron) 7.5 mg QHS PO Last administered on 05/03/17at 19:41; Start 05/03/17 at 21:00; Stop 05/04/17 at 18:04; Status DC Trazodone HCl (Desyrel) 50 mg PRN QHS PRN PO INSOMNIA Last administered on 1/8/ 18at 20:20; Start 05/03/17 at 18:15; Stop 05/05/17 at 19:11; Status DC Mirtazapine (Remeron) 15 mg QHS PO Last administered on 05/06/17at 19:44; Start 05/04/17 at 21:00 Quetiapine Fumarate (SEROquel) 12.5 mg BID@1300,2100 PO Last administered on 03/14at 13:11; Start 05/04/17 at 21:00 Quetiapine Fumarate (SEROquel) 25 mg BID@0900,1700 PO Last administered on 05/07at 16:43; Start 05/05/17 at 09:00 Sertraline HCl (Zoloft) 75 mg DAILY PO Last administered on 05/07/17at 09:13; Start 05/06/17 at 09:00 Trazodone HCl (Desyrel) 100 mg PRN QHS PRN PO INSOMNIA/MAY REPEAT X1 Last administered on 05/06/17at 23:22; Start 05/05/17 at 19:30 Melatonin 3 mg QHS PO Last administered on 05/06/17at 19:45; Start 05/06/17 at 21:00 Divalproex Sodium (Depakote Sprinkles) 125 mg BID@0900,1400 PO Last administered on 05/07/17at 13:10; Start 05/07/17 at 14:00 Active Scripts Active Reported Olanzapine 5 Mg Tablet 2.5 Mg PO HS Zoloft (Sertraline Hcl) 50 Mg Tablet 50 Mg PO DAILY Colace (Docusate Sodium) 100 Mg Capsule 100 Mg PO BID Aricept (Donepezil Hcl) 10 Mg Tablet 10 Mg PO QHS Calcium 500 + Vit D 400 Tablet (Calcium Carbonate/Vitamin D3) 1 Each Tablet 1 Each PO BID Namzaric 28 mg-10 mg Capsule (Memantine HCl/Donepezil HCl) 1 Each Cap.spr.24 1 Each PO QHS I have reviewed the current psychotropics carefully including drug interactions. Risk benefit ratio favors no change other than as noted in my dictated progress note. Diagnosis: Problems: (1) Anxiety disorder (2) Dementia in Alzheimer's disease with delusions (3) Dementia in Alzheimer's disease with depression (4) Dementia, vascular, with delusions (5) Dementia, vascular, with depression (6) Impulse control disorder ALEIDA,MAN M MD May 07, 2017 19:57
[2017-05-07] MEDS: OLANZapine 2.5 MG TABLET PO SCH (20:06)
[2017-05-07] MEDS: MELATONIN 3 MG TABLET PO SCH (20:06)
[2017-05-07] MEDS: MIRTAZAPINE 15 MG TABLET PO SCH (20:06)
[2017-05-08 06:25] VITALS: BP 132/76
[2017-05-08] MEDS: DIVALPROEX 125 MG CAP.SPRINK PO SCH ×2 (09:13→14:17)
[2017-05-08] MEDS: DOCUSATE SODIUM 100 MG CAPSULE PO SCH ×2 (09:13→19:05)
[2017-05-08] MEDS: QUEtiapine 25 MG TABLET. PO SCH ×4 (09:13→19:07)
[2017-05-08] MEDS: SERTRALINE 50 MG TABLET. PO SCH (09:14)
[2017-05-08] MEDS: CALCIUM CARB/VIT D3 500/200 TABLET PO SCH ×2 (09:14→17:31)
[2017-05-08] MEDS: NICOTINE 21MG PATCH. TD SCH (09:14)
[2017-05-08] MEDS: MAGNESIUM HYDROXIDE 2,400 MG/30 ML ORAL.SUSP. PO PRN (12:44)
[2017-05-08 15:56] VITALS: BP 167/87
[2017-05-08] MEDS: OLANZapine 2.5 MG TABLET PO SCH (19:05)
[2017-05-08] MEDS: MELATONIN 3 MG TABLET PO SCH (19:05)
[2017-05-08] MEDS: MIRTAZAPINE 15 MG TABLET PO SCH (19:05)
--- NOTE | 2017-05-08 19:58 | PDOC ---
Exam Note: Yifan Note: Please also refer to the separate dictated note~for this date of service dictated separately.~Patient seen individually. Discussed the patient with Nursing staff reviewed the chart.~Reviewed interim history and current functioning. Reviewed vital signs,~Labs/ Radiology~and current medications noted below. Continue current treatment with the changes noted in the dictated addendum note Assessment: Vital Signs: Vital Signs Date Time Temp Pulse Resp B/P (MAP) Pulse Ox O2 Delivery O2 Flow Rate FiO2 05/08/17 15:56 97.1 73 21 167/87 (113) 05/08/17 06:25 100 05/03/17 16:23 Room Air I&O Intake and Output 05/08/17 07:00 Intake Total 480 ml Balance 480 ml Intake Oral 480 ml Current Medications: Meds: Current Medications Acetaminophen (Tylenol) 650 mg PRN Q6HRS PRN PO PAIN / TEMP; Start 04/30/17 at 10:15 Multi-Ingredient Ointment (Analgesic [place]) 1 asha PRN QID PRN TP MUSCLE PAIN; Start 04/30/17 at 10:15 Al Hydroxide/Mg Hydroxide (Mylanta Plus Xs) 15 ml PRN AFTMEALHC PRN PO DYSPEPSIA; Start 04/30/17 at 10:15 Magnesium Hydroxide (Milk Of Magnesia) 2,400 mg PRN QHS PRN PO CONSTIPATION Last administered on 05/08/17at 12:44; Start 04/30/17 at 10:15 Nicotine (Nicoderm Cq 21mg) 1 patch DAILY TD Last administered on 05/08/17at 09: 14; Start 04/30/17 at 11:00 Olanzapine (ZyPREXA ZYDIS) 5 mg PRN Q2HR PRN PO ANXIETY / AGITATION Last administered on 05/06/17at 02:46; Start 04/30/17 at 11:45 Docusate Sodium (Colace) 100 mg BID PO Last administered on 05/08/17at 19:05; Start 04/30/17 at 21:00 Donepezil HCl (Aricept) 10 mg QHS PO ; Start 04/30/17 at 21:00; Stop 04/30/17 at 21:00; Status DC Sertraline HCl (Zoloft) 50 mg DAILY PO Last administered on 05/04/17at 08:28; Start 05/01/17 at 09:00; Stop 05/05/17 at 19:11; Status DC Calcium/Vitamin D (Oscal D 500mg/ 200uts) 1 tab BIDWMEALS PO Last administered on 05/08/17at 17:31; Start 04/30/17 at 17:00 Memantine (Namenda) 10 mg BID PO Last administered on 05/01/17 09:31; Start 04/30/17 at 21:00; Stop 05/01/17 at 18:16; Status DC Donepezil HCl (Aricept) 10 mg BID PO Last administered on 05/01/17 09:31; Start 04/30/17 at 21:00; Stop 05/01/17 at 18:16; Status DC Quetiapine Fumarate (SEROquel) 12.5 mg BID92 PO Last administered on 05/01/17at 13:56; Start 05/01/17 at 09:00; Stop 05/01/17 at 18:16; Status DC Olanzapine (ZyPREXA) 2.5 mg HS PO Last administered on 05/08/17at 19:05; Start 05/01/17 at 21:00 Quetiapine Fumarate (SEROquel) 12.5 mg QID PO Last administered on 05/04/17at 17: 02; Start 05/01/17 at 21:00; Stop 05/04/17 at 18:04; Status DC Mirtazapine (Remeron) 7.5 mg QHS PO Last administered on 05/03/17at 19:41; Start 05/03/17 at 21:00; Stop 05/04/17 at 18:04; Status DC Trazodone HCl (Desyrel) 50 mg PRN QHS PRN PO INSOMNIA Last administered on at 20:20; Start 05/03/17 at 18:15; Stop 05/05/17 at 19:11; Status DC Mirtazapine (Remeron) 15 mg QHS PO Last administered on 05/08/17at 19:05; Start 05/04/17 at 21:00 Quetiapine Fumarate (SEROquel) 12.5 mg BID@1300,2100 PO Last administered on 04/13at 19:07; Start 05/04/17 at 21:00 Quetiapine Fumarate (SEROquel) 25 mg BID@0900,1700 PO Last administered on 05/08at 17:31; Start 05/05/17 at 09:00 Sertraline HCl (Zoloft) 75 mg DAILY PO Last administered on 05/08/17at 09:14; Start 05/06/17 at 09:00 Trazodone HCl (Desyrel) 100 mg PRN QHS PRN PO INSOMNIA/MAY REPEAT X1 Last administered on 05/06/17at 23:22; Start 05/05/17 at 19:30 Melatonin 3 mg QHS PO Last administered on 05/08/17at 19:05; Start 05/06/17 at 21:00 Divalproex Sodium (Depakote Sprinkles) 125 mg BID@0900,1400 PO Last administered on 05/08/17at 14:17; Start 05/07/17 at 14:00 Active Scripts Active Reported Olanzapine 5 Mg Tablet 2.5 Mg PO HS Zoloft (Sertraline Hcl) 50 Mg Tablet 50 Mg PO DAILY Colace (Docusate Sodium) 100 Mg Capsule 100 Mg PO BID Aricept (Donepezil Hcl) 10 Mg Tablet 10 Mg PO QHS Calcium 500 + Vit D 400 Tablet (Calcium Carbonate/Vitamin D3) 1 Each Tablet 1 Each PO BID Namzaric 28 mg-10 mg Capsule (Memantine HCl/Donepezil HCl) 1 Each Cap.spr.24 1 Each PO QHS I have reviewed the current psychotropics carefully including drug interactions. Risk benefit ratio favors no change other than as noted in my dictated progress note. Diagnosis: Problems: (1) Anxiety disorder (2) Dementia in Alzheimer's disease with delusions (3) Dementia in Alzheimer's disease with depression (4) Dementia, vascular, with delusions (5) Dementia, vascular, with depression (6) Impulse control disorder JAKE SHIN MD May 08, 2017 19:58
[2017-05-09 05:58] VITALS: BP 125/66
[2017-05-09] MEDS: DOCUSATE SODIUM 100 MG CAPSULE PO SCH ×2 (08:02→19:48)
[2017-05-09] MEDS: DIVALPROEX 125 MG CAP.SPRINK PO SCH ×2 (08:02→13:23)
[2017-05-09] MEDS: CALCIUM CARB/VIT D3 500/200 TABLET PO SCH ×2 (08:02→16:53)
[2017-05-09] MEDS: SERTRALINE 50 MG TABLET. PO SCH (08:02)
[2017-05-09] MEDS: QUEtiapine 25 MG TABLET. PO SCH ×4 (08:02→19:49)
[2017-05-09] MEDS: NICOTINE 21MG PATCH. TD SCH (08:02)
--- NOTE | 2017-05-09 12:41 | PN ---
DATE: 05/06/2017 This is a late entry 05/06/2017, covers elements not covered in my initial note 05/06/2017. I met with the patient evening of 05/06/2017. The patient was awake till 03:00 in the morning, then was in the west hallway with lower stimulation then slept in the morning till 11:00, wandering when he is awake into other patient's rooms. REVIEW OF SYSTEMS: No CV, , pulmonary, eye, ENT system symptoms on review. Reliability poor. MENTAL STATUS EXAM: Oriented to himself. Insight, judgment, recent and remote memory, attention, concentration, fund of knowledge poor, consistent with his diagnosis mentioned in my initial note. IMPRESSION: Major neurocognitive disorder, Alzheimer, vascular with depression, delusion, behavioral disturbance. Rest unchanged. PLAN: Start melatonin 3 mg at bedtime in addition to the trazodone. Continue rest psychotropics mentioned in my initial note. JAKE SHIN MD DR: SHERON/thuan JOB#: [id number] / [id number]
[2017-05-09 15:41] VITALS: BP 102/70
[2017-05-09] MEDS: OLANZapine 2.5 MG TABLET PO SCH (19:48)
[2017-05-09] MEDS: MIRTAZAPINE 15 MG TABLET PO SCH (19:48)
[2017-05-09] MEDS: MELATONIN 3 MG TABLET PO SCH (19:49)
--- NOTE | 2017-05-09 20:02 | PDOC ---
Exam Note: Yifan Note: Please also refer to the separate dictated note~for this date of service dictated separately.~Patient seen individually. Discussed the patient with Nursing staff reviewed the chart.~Reviewed interim history and current functioning. Reviewed vital signs,~Labs/ Radiology~and current medications noted below. Continue current treatment with the changes noted in the dictated addendum note Assessment: Vital Signs: Vital Signs Date Time Temp Pulse Resp B/P (MAP) Pulse Ox O2 Delivery O2 Flow Rate FiO2 05/09/17 15:41 97.9 97 18 102/70 (81) 96 05/03/17 16:23 Room Air I&O Intake and Output 05/09/17 07:00 Intake Total 120 ml Balance 120 ml Intake Oral 120 ml # Bowel Movements 1 Current Medications: Meds: Current Medications Acetaminophen (Tylenol) 650 mg PRN Q6HRS PRN PO PAIN / TEMP; Start 04/30/17 at 10:15 Multi-Ingredient Ointment (Analgesic [place]) 1 asha PRN QID PRN TP MUSCLE PAIN; Start 04/30/17 at 10:15 Al Hydroxide/Mg Hydroxide (Mylanta Plus Xs) 15 ml PRN AFTMEALHC PRN PO DYSPEPSIA; Start 04/30/17 at 10:15 Magnesium Hydroxide (Milk Of Magnesia) 2,400 mg PRN QHS PRN PO CONSTIPATION Last administered on 05/08/17at 12:44; Start 04/30/17 at 10:15 Nicotine (Nicoderm Cq 21mg) 1 patch DAILY TD Last administered on 05/09/17at 08: 02; Start 04/30/17 at 11:00 Olanzapine (ZyPREXA ZYDIS) 5 mg PRN Q2HR PRN PO ANXIETY / AGITATION Last administered on 05/06/17at 02:46; Start 04/30/17 at 11:45 Docusate Sodium (Colace) 100 mg BID PO Last administered on 05/09/17at 19:48; Start 04/30/17 at 21:00 Donepezil HCl (Aricept) 10 mg QHS PO ; Start 04/30/17 at 21:00; Stop 04/30/17 at 21:00; Status DC Sertraline HCl (Zoloft) 50 mg DAILY PO Last administered on 05/04/17at 08:28; Start 05/01/17 at 09:00; Stop 05/05/17 at 19:11; Status DC Calcium/Vitamin D (Oscal D 500mg/ 200uts) 1 tab BIDWMEALS PO Last administered on 05/09/17at 16:53; Start 04/30/17 at 17:00 Memantine (Namenda) 10 mg BID PO Last administered on 05/01/17 09:31; Start 04/30/17 at 21:00; Stop 05/01/17 at 18:16; Status DC Donepezil HCl (Aricept) 10 mg BID PO Last administered on 05/01/17 09:31; Start 04/30/17 at 21:00; Stop 05/01/17 at 18:16; Status DC Quetiapine Fumarate (SEROquel) 12.5 mg BID92 PO Last administered on 05/01/17at 13:56; Start 05/01/17 at 09:00; Stop 05/01/17 at 18:16; Status DC Olanzapine (ZyPREXA) 2.5 mg HS PO Last administered on 05/09/17at 19:48; Start 05/01/17 at 21:00 Quetiapine Fumarate (SEROquel) 12.5 mg QID PO Last administered on 05/04/17 17: 02; Start 05/01/17 at 21:00; Stop 05/04/17 at 18:04; Status DC Mirtazapine (Remeron) 7.5 mg QHS PO Last administered on 05/03/17at 19:41; Start 05/03/17 at 21:00; Stop 05/04/17 at 18:04; Status DC Trazodone HCl (Desyrel) 50 mg PRN QHS PRN PO INSOMNIA Last administered on 20:20; Start 05/03/17 at 18:15; Stop 05/05/17 at 19:11; Status DC Mirtazapine (Remeron) 15 mg QHS PO Last administered on 05/09/17 19:48; Start 05/04/17 at 21:00 Quetiapine Fumarate (SEROquel) 12.5 mg BID@1300,2100 PO Last administered on at 19:49; Start 05/04/17 at 21:00 Quetiapine Fumarate (SEROquel) 25 mg BID@0900,1700 PO Last administered on 05/09 16:53; Start 05/05/17 at 09:00 Sertraline HCl (Zoloft) 75 mg DAILY PO Last administered on 05/09/17at 08:02; Start 05/06/17 at 09:00 Trazodone HCl (Desyrel) 100 mg PRN QHS PRN PO INSOMNIA/MAY REPEAT X1 Last administered on 05/06/17at 23:22; Start 05/05/17 at 19:30 Melatonin 3 mg QHS PO Last administered on 05/09/17at 19:49; Start 05/06/17 at 21:00 Divalproex Sodium (Depakote Sprinkles) 125 mg BID@0900,1400 PO Last administered on 05/09/17 13:23; Start 05/07/17 at 14:00 Active Scripts Active Reported Olanzapine 5 Mg Tablet 2.5 Mg PO HS Zoloft (Sertraline Hcl) 50 Mg Tablet 50 Mg PO DAILY Colace (Docusate Sodium) 100 Mg Capsule 100 Mg PO BID Aricept (Donepezil Hcl) 10 Mg Tablet 10 Mg PO QHS Calcium 500 + Vit D 400 Tablet (Calcium Carbonate/Vitamin D3) 1 Each Tablet 1 Each PO BID Namzaric 28 mg-10 mg Capsule (Memantine HCl/Donepezil HCl) 1 Each Cap.spr.24 1 Each PO QHS I have reviewed the current psychotropics carefully including drug interactions. Risk benefit ratio favors no change other than as noted in my dictated progress note. Diagnosis: Problems: (1) Anxiety disorder (2) Dementia in Alzheimer's disease with delusions (3) Dementia in Alzheimer's disease with depression (4) Dementia, vascular, with delusions (5) Dementia, vascular, with depression (6) Impulse control disorder JAKE SHIN MD May 09, 2017 20:02
[2017-05-10 05:43] VITALS: BP 135/71
[2017-05-10 07:36] LABS: BASO % 1 % (0-3); EOS # 0.3 x10^3/uL (0.0-0.7); EOS % 5 % (0-3); HEMATOCRIT 36.1 % (39.0-53.0); HEMOGLOBIN 12.1 g/dL (13.0-17.5); LYMPH # 2.2 x10^3/uL (1.0-4.8); LYMPH % 32 % (24-48); MEAN CORPUSCULAR HEMOGLOBIN 30 pg (25-35); MEAN CORPUSCULAR HGB CONC 34 g/dL (31-37); MEAN CORPUSCULAR VOLUME 91 fL (79-100); MONO # 0.8 x10^3/uL (0.0-1.1); MONO % 12 % (0-9); NEUT # 3.4 x10^3uL (1.8-7.7); NEUT % 50 % (31-73); PLATELET COUNT 89 x10^3/uL (140-400); RED BLOOD COUNT 3.99 x10^6/uL (4.30-5.70); RED CELL DISTRIBUTION WIDTH 15.1 % (11.5-14.5); WHITE BLOOD COUNT 6.9 x10^3/uL (4.0-11.0)
[2017-05-10 07:51] LABS: ALBUMIN 3.6 g/dL (3.4-5.0); ALBUMIN/GLOBULIN RATIO 0.8 (1.0-1.7); ALK PHOS 114 U/L (46-116); ALT (SGPT) 30 U/L (16-63); ANION GAP 9 (6-14); AST (SGOT) 26 U/L (15-37); BLOOD UREA NITROGEN 31 mg/dL (8-26); BUN/CREATININE RATIO 21 (6-20); CALCIUM 9.3 mg/dL (8.5-10.1); CARBON DIOXIDE 31 mmol/L (21-32); CHLORIDE 108 mmol/L (98-107); CREATININE 1.5 mg/dL (0.7-1.3); GFR 46.1; GLUCOSE 115 mg/dL (70-99); POTASSIUM 4.5 mmol/L (3.5-5.1); SODIUM 148 mmol/L (136-145); TOTAL BILIRUBIN 0.4 mg/dL (0.2-1.0); TOTAL PROTEIN 7.9 g/dL (6.4-8.2)
[2017-05-10 07:52] LABS: VAL ACID 12 mcg/mL (50-100)
[2017-05-10] MEDS: CALCIUM CARB/VIT D3 500/200 TABLET PO SCH ×2 (09:28→16:59)
[2017-05-10] MEDS: QUEtiapine 25 MG TABLET. PO SCH ×4 (09:28→20:09)
[2017-05-10] MEDS: NICOTINE 21MG PATCH. TD SCH (09:28)
[2017-05-10] MEDS: DOCUSATE SODIUM 100 MG CAPSULE PO SCH ×2 (09:28→20:07)
[2017-05-10] MEDS: SERTRALINE 50 MG TABLET. PO SCH (09:28)
[2017-05-10] MEDS: DIVALPROEX 125 MG CAP.SPRINK PO SCH ×3 (09:28→20:09)
[2017-05-10 16:43] VITALS: BP 138/79
[2017-05-10] MEDS ORDERED: traZODone 100 MG TABLET. PO PRN ×2 (18:30→19:00)
--- NOTE | 2017-05-10 19:46 | PDOC ---
Exam Note: Yifan Note: Please also refer to the separate dictated note~for this date of service dictated separately.~Patient seen individually. Discussed the patient with Nursing staff reviewed the chart.~Reviewed interim history and current functioning. Reviewed vital signs,~Labs/ Radiology~and current medications noted below. Continue current treatment with the changes noted in the dictated addendum note Assessment: Vital Signs: Vital Signs Date Time Temp Pulse Resp B/P (MAP) Pulse Ox O2 Delivery O2 Flow Rate FiO2 05/10/17 16:43 98.1 85 16 138/79 (98) 96 I&O Intake and Output 05/10/17 07:00 Intake Total 240 ml Balance 240 ml Intake Oral 240 ml Labs: Laboratory Tests Test 05/10/17 07:23 White Blood Count 6.9 x10^3/uL (4.0-11.0) Red Blood Count 3.99 x10^6/uL (4.30-5.70) L Hemoglobin 12.1 g/dL (13.0-17.5) L Hematocrit 36.1 % (39.0-53.0) L Mean Corpuscular Volume 91 fL (79-100) Mean Corpuscular Hemoglobin 30 pg (25-35) Mean Corpuscular Hemoglobin Concent 34 g/dL (31-37) Red Cell Distribution Width 15.1 % (11.5-14.5) H Platelet Count 89 x10^3/uL (140-400) L Neutrophils (%) (Auto) 50 % (31-73) Lymphocytes (%) (Auto) 32 % (24-48) Monocytes (%) (Auto) 12 % (0-9) H Eosinophils (%) (Auto) 5 % (0-3) H Basophils (%) (Auto) 1 % (0-3) Neutrophils # (Auto) 3.4 x10^3uL (1.8-7.7) Lymphocytes # (Auto) 2.2 x10^3/uL (1.0-4.8) Monocytes # (Auto) 0.8 x10^3/uL (0.0-1.1) Eosinophils # (Auto) 0.3 x10^3/uL (0.0-0.7) Basophils # (Auto) 0.0 x10^3/uL (0.0-0.2) Sodium Level 148 mmol/L (136-145) H Potassium Level 4.5 mmol/L (3.5-5.1) Chloride Level 108 mmol/L (98-107) H Carbon Dioxide Level 31 mmol/L (21-32) Anion Gap 9 (6-14) Blood Urea Nitrogen 31 mg/dL (8-26) H Creatinine 1.5 mg/dL (0.7-1.3) H Estimated GFR (Cockcroft-Gault) 46.1 BUN/Creatinine Ratio 21 (6-20) H Glucose Level 115 mg/dL (70-99) H Calcium Level 9.3 mg/dL (8.5-10.1) Total Bilirubin 0.4 mg/dL (0.2-1.0) Aspartate Amino Transferase (AST) 26 U/L (15-37) Alanine Aminotransferase (ALT) 30 U/L (16-63) Alkaline Phosphatase 114 U/L (46-116) Total Protein 7.9 g/dL (6.4-8.2) Albumin 3.6 g/dL (3.4-5.0) Albumin/Globulin Ratio 0.8 (1.0-1.7) L Valproic Acid Level 12 mcg/mL (50-100) L Valproic Acid Last Dose Date 05/09/17 Valproic Acid Last Dose Time 1400 Current Medications: Meds: Current Medications Acetaminophen (Tylenol) 650 mg PRN Q6HRS PRN PO PAIN / TEMP; Start 04/30/17 at 10:15 Multi-Ingredient Ointment (Analgesic [place]) 1 asha PRN QID PRN TP MUSCLE PAIN; Start 04/30/17 at 10:15 Al Hydroxide/Mg Hydroxide (Mylanta Plus Xs) 15 ml PRN AFTMEALHC PRN PO DYSPEPSIA; Start 04/30/17 at 10:15 Magnesium Hydroxide (Milk Of Magnesia) 2,400 mg PRN QHS PRN PO CONSTIPATION Last administered on 05/08/17at 12:44; Start 04/30/17 at 10:15 Nicotine (Nicoderm Cq 21mg) 1 patch DAILY TD Last administered on 05/10/17at 09: 28; Start 04/30/17 at 11:00 Olanzapine (ZyPREXA ZYDIS) 5 mg PRN Q2HR PRN PO ANXIETY / AGITATION Last administered on 05/10/17at 14:50; Start 04/30/17 at 11:45 Docusate Sodium (Colace) 100 mg BID PO Last administered on 05/10/17at 09:28; Start 04/30/17 at 21:00 Donepezil HCl (Aricept) 10 mg QHS PO ; Start 04/30/17 at 21:00; Stop 04/30/17 at 21:00; Status DC Sertraline HCl (Zoloft) 50 mg DAILY PO Last administered on 05/04/17at 08:28; Start 05/01/17 at 09:00; Stop 05/05/17 at 19:11; Status DC Calcium/Vitamin D (Oscal D 500mg/ 200uts) 1 tab BIDWMEALS PO Last administered on 05/10/17at 16:59; Start 04/30/17 at 17:00 Memantine (Namenda) 10 mg BID PO Last administered on 05/01/17at 09:31; Start 04/30/17 at 21:00; Stop 05/01/17 at 18:16; Status DC Donepezil HCl (Aricept) 10 mg BID PO Last administered on 05/01/17at 09:31; Start 04/30/17 at 21:00; Stop 05/01/17 at 18:16; Status DC Quetiapine Fumarate (SEROquel) 12.5 mg BID92 PO Last administered on 05/01/17at 13:56; Start 05/01/17 at 09:00; Stop 05/01/17 at 18:16; Status DC Olanzapine (ZyPREXA) 2.5 mg HS PO Last administered on 05/09/17at 19:48; Start 05/01/17 at 21:00 Quetiapine Fumarate (SEROquel) 12.5 mg QID PO Last administered on 05/04/17at 17: 02; Start 05/01/17 at 21:00; Stop 05/04/17 at 18:04; Status DC Mirtazapine (Remeron) 7.5 mg QHS PO Last administered on 05/03/17at 19:41; Start 05/03/17 at 21:00; Stop 05/04/17 at 18:04; Status DC Trazodone HCl (Desyrel) 50 mg PRN QHS PRN PO INSOMNIA Last administered on at 20:20; Start 05/03/17 at 18:15; Stop 05/05/17 at 19:11; Status DC Mirtazapine (Remeron) 15 mg QHS PO Last administered on 05/09/17at 19:48; Start 05/04/17 at 21:00 Quetiapine Fumarate (SEROquel) 12.5 mg BID@1300,2100 PO Last administered on at 13:57; Start 05/04/17 at 21:00 Quetiapine Fumarate (SEROquel) 25 mg BID@0900,1700 PO Last administered on 05/10at 16:59; Start 05/05/17 at 09:00 Sertraline HCl (Zoloft) 75 mg DAILY PO Last administered on 05/10/17at 09:28; Start 05/06/17 at 09:00 Trazodone HCl (Desyrel) 100 mg PRN QHS PRN PO INSOMNIA/MAY REPEAT X1 Last administered on 05/06/17at 23:22; Start 05/05/17 at 19:30; Stop 05/10/17 at 18:29 ; Status DC Melatonin 3 mg QHS PO Last administered on 05/09/17at 19:49; Start 05/06/17 at 21:00 Divalproex Sodium (Depakote Sprinkles) 125 mg BID@0900,1400 PO Last administered on 05/10/17at 13:57; Start 05/07/17 at 14:00; Stop 05/10/17 at 18:29 ; Status DC Divalproex Sodium (Depakote Sprinkles) 125 mg QID PO ; Start 05/10/17 at 21:00 Trazodone HCl (Desyrel) 100 mg HS PO ; Start 05/10/17 at 21:00; Status Cancel Trazodone HCl (Desyrel) 100 mg PRN QHS PRN PO SLEEP; Start 05/10/17 at 18:30; Status Cancel Trazodone HCl (Desyrel) 100 mg HS PO ; Start 05/10/17 at 21:00 Trazodone HCl (Desyrel) 100 mg PRN QHS PRN PO SLEEP; Start 05/10/17 at 19:00 Active Scripts Active Reported Olanzapine 5 Mg Tablet 2.5 Mg PO HS Zoloft (Sertraline Hcl) 50 Mg Tablet 50 Mg PO DAILY Colace (Docusate Sodium) 100 Mg Capsule 100 Mg PO BID Aricept (Donepezil Hcl) 10 Mg Tablet 10 Mg PO QHS Calcium 500 + Vit D 400 Tablet (Calcium Carbonate/Vitamin D3) 1 Each Tablet 1 Each PO BID Namzaric 28 mg-10 mg Capsule (Memantine HCl/Donepezil HCl) 1 Each Cap.spr.24 1 Each PO QHS I have reviewed the current psychotropics carefully including drug interactions. Risk benefit ratio favors no change other than as noted in my dictated progress note. Diagnosis: Problems: (1) Anxiety disorder (2) Dementia in Alzheimer's disease with delusions (3) Dementia in Alzheimer's disease with depression (4) Dementia, vascular, with delusions (5) Dementia, vascular, with depression (6) Impulse control disorder JAKE SHIN MD May 10, 2017 19:46
[2017-05-10] MEDS: MELATONIN 3 MG TABLET PO SCH (20:07)
[2017-05-10] MEDS: MIRTAZAPINE 15 MG TABLET PO SCH (20:07)
[2017-05-10] MEDS: OLANZapine 2.5 MG TABLET PO SCH (20:07)
[2017-05-10] MEDS: traZODone 100 MG TABLET. PO SCH (20:10)
[2017-05-10] MEDS ORDERED: traZODone 100 MG TABLET. PO SCH (21:00)
--- NOTE | 2017-05-10 21:11 | PN ---
DATE: 05/07/2017 This late entry of 05/07/2017 covers elements not covered in my initial note 05/07/2017. SUBJECTIVE: I met with the patient later in the morning 05/07/2017 and staffed at a treatment team meeting with the entire team in the morning of 05/07/2017, reviewed the patient's history, diagnosis, placement options. He was at [facility] just for one day prior to which he was living at home. Appetite 75%, sleeping averaged 2 hours, slept 4-1/2 hours previous evening, melatonin seemed to have helped. He is wearing a onesie, otherwise, urinates on the floor. Detailed history from the family indicates his memory started slipping around 2009. 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 He remains somewhat labile. REVIEW OF SYSTEMS: No CV, , pulmonary, eye, ENT system symptoms on review. Reliability poor. MENTAL STATUS EXAM: Oriented to himself. Insight, judgment, recent and remote memory, attention, concentration, fund of knowledge poor, consistent with his diagnosis mentioned in my initial note. IMPRESSION: Major neurocognitive disorder, Alzheimer, vascular with depression, delusion, behavioral disturbance. PLAN: Continue psychotropics. Add Depakote Sprinkles 125 mg twice a day. Check CBC, CMP level in 3 days. Depakote is a mood stabilizer; hopefully, helps his anxiety, irritability and mood lability. MAN Tiago SHIN MD DR: SHERON/thuan JOB#: [id number] / [id number]
--- NOTE | 2017-05-11 00:48 | PN ---
DATE: 05/08/2017 This late entry of 05/08/2017 covers elements not covered in my initial note of 05/08/2017. I met with the patient the evening of 05/08/2017. The patient slept 6 hours previous evening, remains confused, wandering, checking the doors, restless, fidgety, takes meds and ice cream, agitated with shower, bed, regarding his clothes and he was not placed in the 1 ESIE. He has not been stripping himself. We will check labs on 05/10/2017. REVIEW OF SYSTEMS: No CV, , pulmonary, eye, ENT system symptoms on review. Reliability poor. MENTAL STATUS EXAM: Oriented to himself. Insight, judgment, recent and remote memory, attention, concentration, fund of knowledge poor, consistent with his diagnosis mentioned in my initial note. IMPRESSION: Major neurocognitive disorder, Alzheimer vascular with depression, delusion, behavioral disturbance. Rest unchanged. PLAN: Continue current psychotropics mentioned in my initial note. Reviewed drug interactions at some length. MAN Tiago SHIN MD DR: SHERON/thuan JOB#: [id number] / [id number]
--- NOTE | 2017-05-11 00:53 | PN ---
DATE: 05/09/2017 Late entry 05/09/2017. Covers elements not covered in my initial note 05/09/2017. SUBJECTIVE: I met with the patient in the evening of 05/09/2017. The patient remains confused, has been more verbal, wandering, talking about taking a motor out of a truck. He was more intrusive, resistive with medications. REVIEW OF SYSTEMS: No CV, , pulmonary system symptoms on review. Reliability poor. MENTAL STATUS EXAM: Oriented to himself. Insight, judgment, recent and remote memory, attention, concentration, fund of knowledge poor, consistent with his diagnosis mentioned in my initial note. IMPRESSION: Major neurocognitive disorder, Alzheimer, vascular with depression, delusion, behavioral disturbance. Rest unchanged. PLAN: Continue psychotropics mentioned in my initial note. MAN Tiago SHIN MD DR: SHERON/thuan JOB#: [id number] / [id number]
[2017-05-11 06:09] VITALS: BP 142/74
[2017-05-11] MEDS: SERTRALINE 50 MG TABLET. PO SCH (07:46)
[2017-05-11] MEDS: DIVALPROEX 125 MG CAP.SPRINK PO SCH ×4 (07:46→20:14)
[2017-05-11] MEDS: QUEtiapine 25 MG TABLET. PO SCH ×4 (07:46→20:14)
[2017-05-11] MEDS: NICOTINE 21MG PATCH. TD SCH (07:47)
[2017-05-11] MEDS: DOCUSATE SODIUM 100 MG CAPSULE PO SCH ×2 (07:47→20:16)
[2017-05-11] MEDS: CALCIUM CARB/VIT D3 500/200 TABLET PO SCH ×2 (07:47→17:23)
[2017-05-11 15:57] VITALS: BP 150/75
--- NOTE | 2017-05-11 20:05 | PDOC ---
Exam Note: Yifan Note: Please also refer to the separate dictated note~for this date of service dictated separately.~Patient seen individually. Discussed the patient with Nursing staff reviewed the chart.~Reviewed interim history and current functioning. Reviewed vital signs,~Labs/ Radiology~and current medications noted below. Continue current treatment with the changes noted in the dictated addendum note Assessment: Vital Signs: Vital Signs Date Time Temp Pulse Resp B/P (MAP) Pulse Ox O2 Delivery O2 Flow Rate FiO2 05/11/17 15:57 97.6 78 20 150/75 (100) 100 05/11/17 06:09 Room Air I&O Intake and Output 05/11/17 07:00 Intake Total 240 ml Balance 240 ml Intake Oral 240 ml # Bowel Movements 1 Current Medications: Meds: Current Medications Acetaminophen (Tylenol) 650 mg PRN Q6HRS PRN PO PAIN / TEMP; Start 04/30/17 at 10:15 Multi-Ingredient Ointment (Analgesic [place]) 1 asha PRN QID PRN TP MUSCLE PAIN; Start 04/30/17 at 10:15 Al Hydroxide/Mg Hydroxide (Mylanta Plus Xs) 15 ml PRN AFTMEALHC PRN PO DYSPEPSIA; Start 04/30/17 at 10:15 Magnesium Hydroxide (Milk Of Magnesia) 2,400 mg PRN QHS PRN PO CONSTIPATION Last administered on 05/08/17at 12:44; Start 04/30/17 at 10:15 Nicotine (Nicoderm Cq 21mg) 1 patch DAILY TD Last administered on 05/11/17at 07: 47; Start 04/30/17 at 11:00 Olanzapine (ZyPREXA ZYDIS) 5 mg PRN Q2HR PRN PO ANXIETY / AGITATION Last administered on 05/10/17at 14:50; Start 04/30/17 at 11:45 Docusate Sodium (Colace) 100 mg BID PO Last administered on 05/11/17at 07:47; Start 04/30/17 at 21:00 Donepezil HCl (Aricept) 10 mg QHS PO ; Start 04/30/17 at 21:00; Stop 04/30/17 at 21:00; Status DC Sertraline HCl (Zoloft) 50 mg DAILY PO Last administered on 05/04/17at 08:28; Start 05/01/17 at 09:00; Stop 05/05/17 at 19:11; Status DC Calcium/Vitamin D (Oscal D 500mg/ 200uts) 1 tab BIDWMEALS PO Last administered on 05/11/17at 17:23; Start 04/30/17 at 17:00 Memantine (Namenda) 10 mg BID PO Last administered on 05/01/17 09:31; Start 04/30/17 at 21:00; Stop 05/01/17 at 18:16; Status DC Donepezil HCl (Aricept) 10 mg BID PO Last administered on 05/01/17 09:31; Start 04/30/17 at 21:00; Stop 05/01/17 at 18:16; Status DC Quetiapine Fumarate (SEROquel) 12.5 mg BID92 PO Last administered on 05/01/17at 13:56; Start 05/01/17 at 09:00; Stop 05/01/17 at 18:16; Status DC Olanzapine (ZyPREXA) 2.5 mg HS PO Last administered on 05/10/17at 20:07; Start 05/01/17 at 21:00 Quetiapine Fumarate (SEROquel) 12.5 mg QID PO Last administered on 05/04/17 17: 02; Start 05/01/17 at 21:00; Stop 05/04/17 at 18:04; Status DC Mirtazapine (Remeron) 7.5 mg QHS PO Last administered on 05/03/17at 19:41; Start 05/03/17 at 21:00; Stop 05/04/17 at 18:04; Status DC Trazodone HCl (Desyrel) 50 mg PRN QHS PRN PO INSOMNIA Last administered on at 20:20; Start 05/03/17 at 18:15; Stop 05/05/17 at 19:11; Status DC Mirtazapine (Remeron) 15 mg QHS PO Last administered on 05/10/17at 20:07; Start 05/04/17 at 21:00 Quetiapine Fumarate (SEROquel) 12.5 mg BID@1300,2100 PO Last administered on at 13:07; Start 05/04/17 at 21:00 Quetiapine Fumarate (SEROquel) 25 mg BID@0900,1700 PO Last administered on 05/11at 17:23; Start 05/05/17 at 09:00 Sertraline HCl (Zoloft) 75 mg DAILY PO Last administered on 05/11/17at 07:46; Start 05/06/17 at 09:00 Trazodone HCl (Desyrel) 100 mg PRN QHS PRN PO INSOMNIA/MAY REPEAT X1 Last administered on 05/06/17at 23:22; Start 05/05/17 at 19:30; Stop 05/10/17 at 18:29 ; Status DC Melatonin 3 mg QHS PO Last administered on 05/10/17at 20:07; Start 05/06/17 at 21:00 Divalproex Sodium (Depakote Sprinkles) 125 mg BID@0900,1400 PO Last administered on 05/10/17at 13:57; Start 05/07/17 at 14:00; Stop 05/10/17 at 18:29 ; Status DC Divalproex Sodium (Depakote Sprinkles) 125 mg QID PO Last administered on at 17:23; Start 05/10/17 at 21:00 Trazodone HCl (Desyrel) 100 mg HS PO ; Start 05/10/17 at 21:00; Status Cancel Trazodone HCl (Desyrel) 100 mg PRN QHS PRN PO SLEEP; Start 05/10/17 at 18:30; Status Cancel Trazodone HCl (Desyrel) 100 mg HS PO Last administered on 05/10/17at 20:10; Start 05/10/17 at 21:00 Trazodone HCl (Desyrel) 100 mg PRN QHS PRN PO SLEEP; Start 05/10/17 at 19:00 Active Scripts Active Reported Olanzapine 5 Mg Tablet 2.5 Mg PO HS Zoloft (Sertraline Hcl) 50 Mg Tablet 50 Mg PO DAILY Colace (Docusate Sodium) 100 Mg Capsule 100 Mg PO BID Aricept (Donepezil Hcl) 10 Mg Tablet 10 Mg PO QHS Calcium 500 + Vit D 400 Tablet (Calcium Carbonate/Vitamin D3) 1 Each Tablet 1 Each PO BID Namzaric 28 mg-10 mg Capsule (Memantine HCl/Donepezil HCl) 1 Each Cap.spr.24 1 Each PO QHS I have reviewed the current psychotropics carefully including drug interactions. Risk benefit ratio favors no change other than as noted in my dictated progress note. Diagnosis: Problems: (1) Anxiety disorder (2) Dementia in Alzheimer's disease with delusions (3) Dementia in Alzheimer's disease with depression (4) Dementia, vascular, with delusions (5) Dementia, vascular, with depression (6) Impulse control disorder JAKE SHIN MD May 11, 2017 20:05
[2017-05-11] MEDS: OLANZapine 2.5 MG TABLET PO SCH (20:14)
[2017-05-11] MEDS: traZODone 100 MG TABLET. PO SCH (20:15)
[2017-05-11] MEDS: MIRTAZAPINE 15 MG TABLET PO SCH (20:15)
[2017-05-11] MEDS: MELATONIN 3 MG TABLET PO SCH (20:16)
[2017-05-12 08:30] VITALS: BP 154/74
[2017-05-12] MEDS: SERTRALINE 50 MG TABLET. PO SCH (10:21)
[2017-05-12] MEDS: CALCIUM CARB/VIT D3 500/200 TABLET PO SCH ×2 (10:21→16:55)
[2017-05-12] MEDS: DOCUSATE SODIUM 100 MG CAPSULE PO SCH ×2 (10:21→19:18)
[2017-05-12] MEDS: NICOTINE 21MG PATCH. TD SCH (10:21)
[2017-05-12] MEDS: QUEtiapine 25 MG TABLET. PO SCH ×4 (10:21→19:18)
[2017-05-12] MEDS: DIVALPROEX 125 MG CAP.SPRINK PO SCH ×4 (10:21→19:17)
[2017-05-12 16:16] VITALS: BP 168/79
[2017-05-12] MEDS: MIRTAZAPINE 15 MG TABLET PO SCH (19:17)
[2017-05-12] MEDS: MELATONIN 3 MG TABLET PO SCH (19:17)
[2017-05-12] MEDS: OLANZapine 2.5 MG TABLET PO SCH (19:18)
[2017-05-12] MEDS: traZODone 100 MG TABLET. PO SCH (19:18)
--- NOTE | 2017-05-12 20:06 | PDOC ---
Exam Note: Yifan Note: Please also refer to the separate dictated note~for this date of service dictated separately.~Patient seen individually. Discussed the patient with Nursing staff reviewed the chart.~Reviewed interim history and current functioning. Reviewed vital signs,~Labs/ Radiology~and current medications noted below. Continue current treatment with the changes noted in the dictated addendum note Assessment: Vital Signs: Vital Signs Date Time Temp Pulse Resp B/P (MAP) Pulse Ox O2 Delivery O2 Flow Rate FiO2 05/12/17 16:16 97.2 100 18 168/79 (108) 05/12/17 08:30 Room Air 05/11/17 15:57 100 I&O Intake and Output 05/12/17 07:00 Intake Total 240 ml Balance 240 ml Intake Oral 240 ml Current Medications: Meds: Current Medications Acetaminophen (Tylenol) 650 mg PRN Q6HRS PRN PO PAIN / TEMP; Start 04/30/17 at 10:15 Multi-Ingredient Ointment (Analgesic [place]) 1 asha PRN QID PRN TP MUSCLE PAIN; Start 04/30/17 at 10:15 Al Hydroxide/Mg Hydroxide (Mylanta Plus Xs) 15 ml PRN AFTMEALHC PRN PO DYSPEPSIA; Start 04/30/17 at 10:15 Magnesium Hydroxide (Milk Of Magnesia) 2,400 mg PRN QHS PRN PO CONSTIPATION Last administered on 05/08/17at 12:44; Start 04/30/17 at 10:15 Nicotine (Nicoderm Cq 21mg) 1 patch DAILY TD Last administered on 05/12/17at 10: 21; Start 04/30/17 at 11:00; Stop 05/12/17 at 16:01; Status DC Olanzapine (ZyPREXA ZYDIS) 5 mg PRN Q2HR PRN PO ANXIETY / AGITATION Last administered on 05/10/17at 14:50; Start 04/30/17 at 11:45 Docusate Sodium (Colace) 100 mg BID PO Last administered on 05/12/17at 19:18; Start 04/30/17 at 21:00 Donepezil HCl (Aricept) 10 mg QHS PO ; Start 04/30/17 at 21:00; Stop 04/30/17 at 21:00; Status DC Sertraline HCl (Zoloft) 50 mg DAILY PO Last administered on 05/04/17 08:28; Start 05/01/17 at 09:00; Stop 05/05/17 at 19:11; Status DC Calcium/Vitamin D (Oscal D 500mg/ 200uts) 1 tab BIDWMEALS PO Last administered on 05/12/17at 16:55; Start 04/30/17 at 17:00 Memantine (Namenda) 10 mg BID PO Last administered on 05/01/17 09:31; Start 04/30/17 at 21:00; Stop 05/01/17 at 18:16; Status DC Donepezil HCl (Aricept) 10 mg BID PO Last administered on 05/01/17 09:31; Start 04/30/17 at 21:00; Stop 05/01/17 at 18:16; Status DC Quetiapine Fumarate (SEROquel) 12.5 mg BID92 PO Last administered on 05/01/17at 13:56; Start 05/01/17 at 09:00; Stop 05/01/17 at 18:16; Status DC Olanzapine (ZyPREXA) 2.5 mg HS PO Last administered on 05/12/17at 19:18; Start 05/01/17 at 21:00 Quetiapine Fumarate (SEROquel) 12.5 mg QID PO Last administered on 05/04/17at 17: 02; Start 05/01/17 at 21:00; Stop 05/04/17 at 18:04; Status DC Mirtazapine (Remeron) 7.5 mg QHS PO Last administered on 05/03/17at 19:41; Start 05/03/17 at 21:00; Stop 05/04/17 at 18:04; Status DC Trazodone HCl (Desyrel) 50 mg PRN QHS PRN PO INSOMNIA Last administered on at 20:20; Start 05/03/17 at 18:15; Stop 05/05/17 at 19:11; Status DC Mirtazapine (Remeron) 15 mg QHS PO Last administered on 05/12/17at 19:17; Start 05/04/17 at 21:00 Quetiapine Fumarate (SEROquel) 12.5 mg BID@1300,2100 PO Last administered on at 19:18; Start 05/04/17 at 21:00 Quetiapine Fumarate (SEROquel) 25 mg BID@0900,1700 PO Last administered on 05/12at 16:55; Start 05/05/17 at 09:00 Sertraline HCl (Zoloft) 75 mg DAILY PO Last administered on 05/12/17at 10:21; Start 05/06/17 at 09:00 Trazodone HCl (Desyrel) 100 mg PRN QHS PRN PO INSOMNIA/MAY REPEAT X1 Last administered on 05/06/17at 23:22; Start 05/05/17 at 19:30; Stop 05/10/17 at 18:29 ; Status DC Melatonin 3 mg QHS PO Last administered on 05/12/17at 19:17; Start 05/06/17 at 21:00 Divalproex Sodium (Depakote Sprinkles) 125 mg BID@0900,1400 PO Last administered on 05/10/17at 13:57; Start 05/07/17 at 14:00; Stop 05/10/17 at 18:29 ; Status DC Divalproex Sodium (Depakote Sprinkles) 125 mg QID PO Last administered on at 19:17; Start 05/10/17 at 21:00 Trazodone HCl (Desyrel) 100 mg HS PO ; Start 05/10/17 at 21:00; Status Cancel Trazodone HCl (Desyrel) 100 mg PRN QHS PRN PO SLEEP; Start 05/10/17 at 18:30; Status Cancel Trazodone HCl (Desyrel) 100 mg HS PO Last administered on 05/12/17at 19:18; Start 05/10/17 at 21:00 Trazodone HCl (Desyrel) 100 mg PRN QHS PRN PO SLEEP; Start 05/10/17 at 19:00 Active Scripts Active Reported Olanzapine 5 Mg Tablet 2.5 Mg PO HS Zoloft (Sertraline Hcl) 50 Mg Tablet 50 Mg PO DAILY Colace (Docusate Sodium) 100 Mg Capsule 100 Mg PO BID Aricept (Donepezil Hcl) 10 Mg Tablet 10 Mg PO QHS Calcium 500 + Vit D 400 Tablet (Calcium Carbonate/Vitamin D3) 1 Each Tablet 1 Each PO BID Namzaric 28 mg-10 mg Capsule (Memantine HCl/Donepezil HCl) 1 Each Cap.spr.24 1 Each PO QHS I have reviewed the current psychotropics carefully including drug interactions. Risk benefit ratio favors no change other than as noted in my dictated progress note. Diagnosis: Problems: (1) Anxiety disorder (2) Dementia in Alzheimer's disease with delusions (3) Dementia in Alzheimer's disease with depression (4) Dementia, vascular, with delusions (5) Dementia, vascular, with depression (6) Impulse control disorder JAKE SHIN MD May 12, 2017 20:06
--- NOTE | 2017-05-13 02:59 | PN ---
DATE: 05/10/2017 PSYCHIATRIC PROGRESS NOTE This late entry, 05/10/2017 covers the elements not covered in my initial note 05/10/2017. Met with the patient evening of 05/10/2017. The patient slept 1-1/4 hours previous evening, slept in the evening of 05/10/2017 after a large bowel movement. Valproic acid level is low at 12. Still remains quite anxious, restless, disorganized. REVIEW OF SYSTEMS: No CV, , pulmonary, eye, ENT system symptoms on review. Reliability poor. MENTAL STATUS EXAM: Oriented to himself. Insight, judgment, recent and remote memory, attention, concentration, fund of knowledge poor, consistent with his diagnosis mentioned in my initial note. IMPRESSION: Major neurocognitive disorder, Alzheimer, vascular with depression, delusion, behavioral disturbance. PLAN: Increase the Depakote Sprinkles from 125 mg b.i.d. to 125 mg 4 times a day since the initial valproic acid level subtherapeutic at 12. Change the trazodone to scheduled 100 mg at bedtime and may repeat x 1 p.r.n. for insomnia. Rest of the psychotropics unchanged. MAN Tiago SHIN MD DR: SHERON/thuan JOB#: [id number] / [id number]
[2017-05-13] MEDS: SERTRALINE 50 MG TABLET. PO SCH (10:04)
[2017-05-13] MEDS: QUEtiapine 25 MG TABLET. PO SCH ×4 (10:04→20:29)
[2017-05-13] MEDS: CALCIUM CARB/VIT D3 500/200 TABLET PO SCH ×2 (10:04→16:55)
[2017-05-13] MEDS: DIVALPROEX 125 MG CAP.SPRINK PO SCH ×4 (10:05→20:29)
[2017-05-13] MEDS: DOCUSATE SODIUM 100 MG CAPSULE PO SCH ×2 (10:05→20:29)
[2017-05-13 15:52] VITALS: BP 154/92
[2017-05-13 17:56] LABS: BASO % 1 % (0-3); EOS # 0.2 x10^3/uL (0.0-0.7); EOS % 3 % (0-3); HEMATOCRIT 34.9 % (39.0-53.0); HEMOGLOBIN 11.6 g/dL (13.0-17.5); LYMPH # 1.6 x10^3/uL (1.0-4.8); LYMPH % 23 % (24-48); MEAN CORPUSCULAR HEMOGLOBIN 30 pg (25-35); MEAN CORPUSCULAR HGB CONC 33 g/dL (31-37); MEAN CORPUSCULAR VOLUME 91 fL (79-100); MONO # 0.7 x10^3/uL (0.0-1.1); MONO % 10 % (0-9); NEUT # 4.3 x10^3uL (1.8-7.7); NEUT % 63 % (31-73); PLATELET COUNT 86 x10^3/uL (140-400); RED BLOOD COUNT 3.84 x10^6/uL (4.30-5.70); WHITE BLOOD COUNT 6.8 x10^3/uL (4.0-11.0)
[2017-05-13 18:04] LABS: ALBUMIN 3.3 g/dL (3.4-5.0); ALBUMIN/GLOBULIN RATIO 0.8 (1.0-1.7); ALK PHOS 105 U/L (46-116); ALT (SGPT) 31 U/L (16-63); ANION GAP 8 (6-14); AST (SGOT) 27 U/L (15-37); BLOOD UREA NITROGEN 29 mg/dL (8-26); BUN/CREATININE RATIO 19 (6-20); CALCIUM 9.2 mg/dL (8.5-10.1); CARBON DIOXIDE 30 mmol/L (21-32); CHLORIDE 110 mmol/L (98-107); CREATININE 1.5 mg/dL (0.7-1.3); GFR 46.1; GLUCOSE 87 mg/dL (70-99); POTASSIUM 4.2 mmol/L (3.5-5.1); SODIUM 148 mmol/L (136-145); TOTAL BILIRUBIN 0.3 mg/dL (0.2-1.0); TOTAL PROTEIN 7.2 g/dL (6.4-8.2)
[2017-05-13 18:16] LABS: VAL ACID 40 mcg/mL (50-100)
--- NOTE | 2017-05-13 19:57 | PDOC ---
Exam Note: Yifan Note: Please also refer to the separate dictated note~for this date of service dictated separately.~Patient seen individually. Discussed the patient with Nursing staff reviewed the chart.~Reviewed interim history and current functioning. Reviewed vital signs,~Labs/ Radiology~and current medications noted below. Continue current treatment with the changes noted in the dictated addendum note Assessment: Vital Signs: Vital Signs Date Time Temp Pulse Resp B/P (MAP) Pulse Ox O2 Delivery O2 Flow Rate FiO2 05/13/17 15:52 97.5 79 22 154/92 (112) 99 Room Air I&O Intake and Output 05/13/17 07:00 Intake Total 680 ml Balance 680 ml Intake Oral 680 ml Labs: Laboratory Tests Test 05/13/17 17:05 White Blood Count 6.8 x10^3/uL (4.0-11.0) Red Blood Count 3.84 x10^6/uL (4.30-5.70) L Hemoglobin 11.6 g/dL (13.0-17.5) L Hematocrit 34.9 % (39.0-53.0) L Mean Corpuscular Volume 91 fL (79-100) Mean Corpuscular Hemoglobin 30 pg (25-35) Mean Corpuscular Hemoglobin Concent 33 g/dL (31-37) Red Cell Distribution Width 15.0 % (11.5-14.5) H Platelet Count 86 x10^3/uL (140-400) L Neutrophils (%) (Auto) 63 % (31-73) Lymphocytes (%) (Auto) 23 % (24-48) L Monocytes (%) (Auto) 10 % (0-9) H Eosinophils (%) (Auto) 3 % (0-3) Basophils (%) (Auto) 1 % (0-3) Neutrophils # (Auto) 4.3 x10^3uL (1.8-7.7) Lymphocytes # (Auto) 1.6 x10^3/uL (1.0-4.8) Monocytes # (Auto) 0.7 x10^3/uL (0.0-1.1) Eosinophils # (Auto) 0.2 x10^3/uL (0.0-0.7) Basophils # (Auto) 0.0 x10^3/uL (0.0-0.2) Sodium Level 148 mmol/L (136-145) H Potassium Level 4.2 mmol/L (3.5-5.1) Chloride Level 110 mmol/L (98-107) H Carbon Dioxide Level 30 mmol/L (21-32) Anion Gap 8 (6-14) Blood Urea Nitrogen 29 mg/dL (8-26) H Creatinine 1.5 mg/dL (0.7-1.3) H Estimated GFR (Cockcroft-Gault) 46.1 BUN/Creatinine Ratio 19 (6-20) Glucose Level 87 mg/dL (70-99) Calcium Level 9.2 mg/dL (8.5-10.1) Total Bilirubin 0.3 mg/dL (0.2-1.0) Aspartate Amino Transferase (AST) 27 U/L (15-37) Alanine Aminotransferase (ALT) 31 U/L (16-63) Alkaline Phosphatase 105 U/L (46-116) Total Protein 7.2 g/dL (6.4-8.2) Albumin 3.3 g/dL (3.4-5.0) L Albumin/Globulin Ratio 0.8 (1.0-1.7) L Valproic Acid Level 40 mcg/mL (50-100) L Valproic Acid Last Dose Date 05/12/17 Valproic Acid Last Dose Time 2100 Current Medications: Meds: Current Medications Acetaminophen (Tylenol) 650 mg PRN Q6HRS PRN PO PAIN / TEMP; Start 04/30/17 at 10:15 Multi-Ingredient Ointment (Analgesic [place]) 1 asha PRN QID PRN TP MUSCLE PAIN; Start 04/30/17 at 10:15 Al Hydroxide/Mg Hydroxide (Mylanta Plus Xs) 15 ml PRN AFTMEALHC PRN PO DYSPEPSIA; Start 04/30/17 at 10:15 Magnesium Hydroxide (Milk Of Magnesia) 2,400 mg PRN QHS PRN PO CONSTIPATION Last administered on 05/08/17at 12:44; Start 04/30/17 at 10:15 Nicotine (Nicoderm Cq 21mg) 1 patch DAILY TD Last administered on 05/12/17at 10: 21; Start 04/30/17 at 11:00; Stop 05/12/17 at 16:01; Status DC Olanzapine (ZyPREXA ZYDIS) 5 mg PRN Q2HR PRN PO ANXIETY / AGITATION Last administered on 05/13/17at 12:23; Start 04/30/17 at 11:45 Docusate Sodium (Colace) 100 mg BID PO Last administered on 05/13/17at 10:05; Start 04/30/17 at 21:00 Donepezil HCl (Aricept) 10 mg QHS PO ; Start 04/30/17 at 21:00; Stop 04/30/17 at 21:00; Status DC Sertraline HCl (Zoloft) 50 mg DAILY PO Last administered on 05/04/17at 08:28; Start 05/01/17 at 09:00; Stop 05/05/17 at 19:11; Status DC Calcium/Vitamin D (Oscal D 500mg/ 200uts) 1 tab BIDWMEALS PO Last administered on 05/13/17at 16:55; Start 04/30/17 at 17:00 Memantine (Namenda) 10 mg BID PO Last administered on 05/01/17at 09:31; Start 04/30/17 at 21:00; Stop 05/01/17 at 18:16; Status DC Donepezil HCl (Aricept) 10 mg BID PO Last administered on 05/01/17at 09:31; Start 04/30/17 at 21:00; Stop 05/01/17 at 18:16; Status DC Quetiapine Fumarate (SEROquel) 12.5 mg BID92 PO Last administered on 05/01/17at 13:56; Start 05/01/17 at 09:00; Stop 05/01/17 at 18:16; Status DC Olanzapine (ZyPREXA) 2.5 mg HS PO Last administered on 05/12/17at 19:18; Start 05/01/17 at 21:00 Quetiapine Fumarate (SEROquel) 12.5 mg QID PO Last administered on 05/04/17at 17: 02; Start 05/01/17 at 21:00; Stop 05/04/17 at 18:04; Status DC Mirtazapine (Remeron) 7.5 mg QHS PO Last administered on 05/03/17at 19:41; Start 05/03/17 at 21:00; Stop 05/04/17 at 18:04; Status DC Trazodone HCl (Desyrel) 50 mg PRN QHS PRN PO INSOMNIA Last administered on at 20:20; Start 05/03/17 at 18:15; Stop 05/05/17 at 19:11; Status DC Mirtazapine (Remeron) 15 mg QHS PO Last administered on 05/12/17at 19:17; Start 05/04/17 at 21:00 Quetiapine Fumarate (SEROquel) 12.5 mg BID@1300,2100 PO Last administered on at 12:22; Start 05/04/17 at 21:00; Stop 05/13/17 at 17:49; Status DC Quetiapine Fumarate (SEROquel) 25 mg BID@0900,1700 PO Last administered on 05/13at 16:55; Start 05/05/17 at 09:00 Sertraline HCl (Zoloft) 75 mg DAILY PO Last administered on 05/13/17at 10:04; Start 05/06/17 at 09:00 Trazodone HCl (Desyrel) 100 mg PRN QHS PRN PO INSOMNIA/MAY REPEAT X1 Last administered on 05/06/17at 23:22; Start 05/05/17 at 19:30; Stop 05/10/17 at 18:29 ; Status DC Melatonin 3 mg QHS PO Last administered on 05/12/17at 19:17; Start 05/06/17 at 21:00 Divalproex Sodium (Depakote Sprinkles) 125 mg BID@0900,1400 PO Last administered on 05/10/17at 13:57; Start 05/07/17 at 14:00; Stop 05/10/17 at 18:29 ; Status DC Divalproex Sodium (Depakote Sprinkles) 125 mg QID PO Last administered on at 16:55; Start 05/10/17 at 21:00 Trazodone HCl (Desyrel) 100 mg HS PO ; Start 05/10/17 at 21:00; Status Cancel Trazodone HCl (Desyrel) 100 mg PRN QHS PRN PO SLEEP; Start 05/10/17 at 18:30; Status Cancel Trazodone HCl (Desyrel) 100 mg HS PO Last administered on 05/12/17at 19:18; Start 05/10/17 at 21:00 Trazodone HCl (Desyrel) 100 mg PRN QHS PRN PO SLEEP; Start 05/10/17 at 19:00 Quetiapine Fumarate (SEROquel) 25 mg BID@1300,2100 PO ; Start 05/13/17 at 21:00 Active Scripts Active Reported Olanzapine 5 Mg Tablet 2.5 Mg PO HS Zoloft (Sertraline Hcl) 50 Mg Tablet 50 Mg PO DAILY Colace (Docusate Sodium) 100 Mg Capsule 100 Mg PO BID Aricept (Donepezil Hcl) 10 Mg Tablet 10 Mg PO QHS Calcium 500 + Vit D 400 Tablet (Calcium Carbonate/Vitamin D3) 1 Each Tablet 1 Each PO BID Namzaric 28 mg-10 mg Capsule (Memantine HCl/Donepezil HCl) 1 Each Cap.spr.24 1 Each PO QHS I have reviewed the current psychotropics carefully including drug interactions. Risk benefit ratio favors no change other than as noted in my dictated progress note. Diagnosis: Problems: (1) Anxiety disorder (2) Dementia in Alzheimer's disease with delusions (3) Dementia in Alzheimer's disease with depression (4) Dementia, vascular, with delusions (5) Dementia, vascular, with depression (6) Impulse control disorder JAKE SHIN MD May 13, 2017 19:56
[2017-05-13] MEDS: traZODone 100 MG TABLET. PO SCH (20:28)
[2017-05-13] MEDS: MIRTAZAPINE 15 MG TABLET PO SCH (20:29)
[2017-05-13] MEDS: OLANZapine 2.5 MG TABLET PO SCH (20:29)
[2017-05-13] MEDS: MELATONIN 3 MG TABLET PO SCH (20:29)
[2017-05-13 23:16] LABS: PLT ESTIMATE DECREASED (ADEQUATE)
--- NOTE | 2017-05-14 03:13 | PN ---
DATE: 05/12/2017 This late entry 05/12/2017 covers elements not covered in my initial note 05/12/2017. HISTORY: Met with the patient in the evening of 05/12/2017. The patient slept 5-1/2 hours previous evening, slept in the day room initially and then 4 hours after that. Oral intake remains somewhat poor. He is anxious, distracted, unable to sit long enough for his meals, takes 2 bites of his pudding, slept through breakfast. REVIEW OF SYSTEMS: No CV, , pulmonary, eye, ENT system symptoms on review. Reliability poor. MENTAL STATUS EXAM: Oriented to himself. Insight, judgment, recent and remote memory, attention, concentration, fund of knowledge poor, consistent with his diagnosis mentioned in my initial note. IMPRESSION: Major neurocognitive disorder, Alzheimer, vascular with depression, delusion, behavioral disturbance. Rest unchanged. PLAN: Continue psychotropics mentioned in my initial note. Check CBC, CMP, valproic acid level 117, then adjust the Depakote further. MAN Tiago SHIN MD DR: SHERON/thuan JOB#: [id number] / [id number]
[2017-05-14 05:51] VITALS: BP 143/81
[2017-05-14] MEDS: QUEtiapine 25 MG TABLET. PO SCH ×4 (08:59→19:47)
[2017-05-14] MEDS: DIVALPROEX 125 MG CAP.SPRINK PO SCH ×4 (08:59→19:46)
[2017-05-14] MEDS: SERTRALINE 50 MG TABLET. PO SCH (08:59)
[2017-05-14] MEDS: DOCUSATE SODIUM 100 MG CAPSULE PO SCH ×2 (08:59→19:47)
[2017-05-14] MEDS: MAGNESIUM HYDROXIDE 2,400 MG/30 ML ORAL.SUSP. PO PRN (08:59)
[2017-05-14] MEDS: CALCIUM CARB/VIT D3 500/200 TABLET PO SCH ×2 (08:59→17:17)
--- NOTE | 2017-05-14 11:56 | PN ---
DATE: 05/11/2017 This is a late entry, 05/11/2017, and covers elements not covered in my initial note on 05/11/2017. I met with the patient on the evening of 05/11/2017. The patient is compliant with assessments, very disorganized, pleasantly confused, wanders, frequent rambling speech, intrusive with other patients, resistive to medications due to disorganization. No CV, , pulmonary, eye, ENT system symptoms on review. Reliability poor. In fact, he was not forthcoming answering questions on review of systems. MENTAL STATUS EXAM: Oriented to himself. Insight, judgment, recent and remote memory, attention, concentration, fund of knowledge are poor, consistent with his diagnosis mentioned in my initial note. IMPRESSION: Major neurocognitive disorder, Alzheimer vascular with depression, delusion, behavioral disturbance. Rest unchanged. PLAN: Valproic acid level subtherapeutic at 12. Overall, doing a little better, but we may need to adjust Depakote further depending on his progress. MAN Tiago SHIN MD DR: SHERON/thuan JOB#: [id number] / [id number]
[2017-05-14 15:55] VITALS: BP 128/71
[2017-05-14] MEDS: traZODone 100 MG TABLET. PO SCH (19:46)
[2017-05-14] MEDS: OLANZapine 2.5 MG TABLET PO SCH (19:46)
[2017-05-14] MEDS: MELATONIN 3 MG TABLET PO SCH (19:47)
[2017-05-14] MEDS: AMITRIPTYLINE HCL 25 MG TABLET PO SCH (19:48)
--- NOTE | 2017-05-14 20:13 | PDOC ---
Exam Note: Yifan Note: Please also refer to the separate dictated note~for this date of service dictated separately.~Patient seen individually. Discussed the patient with Nursing staff reviewed the chart.~Reviewed interim history and current functioning. Reviewed vital signs,~Labs/ Radiology~and current medications noted below. Continue current treatment with the changes noted in the dictated addendum note Assessment: Vital Signs: Vital Signs Date Time Temp Pulse Resp B/P (MAP) Pulse Ox O2 Delivery O2 Flow Rate FiO2 05/14/17 15:55 98.5 84 18 128/71 (90) 96 Room Air I&O Intake and Output 05/14/17 07:00 Intake Total 300 ml Balance 300 ml Intake Oral 300 ml Current Medications: Meds: Current Medications Acetaminophen (Tylenol) 650 mg PRN Q6HRS PRN PO PAIN / TEMP; Start 04/30/17 at 10:15 Multi-Ingredient Ointment (Analgesic [place]) 1 asha PRN QID PRN TP MUSCLE PAIN; Start 04/30/17 at 10:15 Al Hydroxide/Mg Hydroxide (Mylanta Plus Xs) 15 ml PRN AFTMEALHC PRN PO DYSPEPSIA; Start 04/30/17 at 10:15 Magnesium Hydroxide (Milk Of Magnesia) 2,400 mg PRN QHS PRN PO CONSTIPATION Last administered on 05/14/17at 08:59; Start 04/30/17 at 10:15 Nicotine (Nicoderm Cq 21mg) 1 patch DAILY TD Last administered on 05/12/17at 10: 21; Start 04/30/17 at 11:00; Stop 05/12/17 at 16:01; Status DC Olanzapine (ZyPREXA ZYDIS) 5 mg PRN Q2HR PRN PO ANXIETY / AGITATION Last administered on 05/13/17at 12:23; Start 04/30/17 at 11:45 Docusate Sodium (Colace) 100 mg BID PO Last administered on 05/14/17at 19:47; Start 04/30/17 at 21:00 Donepezil HCl (Aricept) 10 mg QHS PO ; Start 04/30/17 at 21:00; Stop 04/30/17 at 21:00; Status DC Sertraline HCl (Zoloft) 50 mg DAILY PO Last administered on 05/04/17at 08:28; Start 05/01/17 at 09:00; Stop 05/05/17 at 19:11; Status DC Calcium/Vitamin D (Oscal D 500mg/ 200uts) 1 tab BIDWMEALS PO Last administered on 05/14/17at 17:17; Start 04/30/17 at 17:00 Memantine (Namenda) 10 mg BID PO Last administered on 05/01/17 09:31; Start 04/30/17 at 21:00; Stop 05/01/17 at 18:16; Status DC Donepezil HCl (Aricept) 10 mg BID PO Last administered on 05/01/17 09:31; Start 04/30/17 at 21:00; Stop 05/01/17 at 18:16; Status DC Quetiapine Fumarate (SEROquel) 12.5 mg BID92 PO Last administered on 05/01/17at 13:56; Start 05/01/17 at 09:00; Stop 05/01/17 at 18:16; Status DC Olanzapine (ZyPREXA) 2.5 mg HS PO Last administered on 05/14/17at 19:46; Start 05/01/17 at 21:00 Quetiapine Fumarate (SEROquel) 12.5 mg QID PO Last administered on 05/04/17at 17: 02; Start 05/01/17 at 21:00; Stop 05/04/17 at 18:04; Status DC Mirtazapine (Remeron) 7.5 mg QHS PO Last administered on 05/03/17at 19:41; Start 05/03/17 at 21:00; Stop 05/04/17 at 18:04; Status DC Trazodone HCl (Desyrel) 50 mg PRN QHS PRN PO INSOMNIA Last administered on at 20:20; Start 05/03/17 at 18:15; Stop 05/05/17 at 19:11; Status DC Mirtazapine (Remeron) 15 mg QHS PO Last administered on 05/13/17at 20:29; Start 05/04/17 at 21:00; Stop 05/14/17 at 15:10; Status DC Quetiapine Fumarate (SEROquel) 12.5 mg BID@1300,2100 PO Last administered on at 12:22; Start 05/04/17 at 21:00; Stop 05/13/17 at 17:49; Status DC Quetiapine Fumarate (SEROquel) 25 mg BID@0900,1700 PO Last administered on 05/14at 17:17; Start 05/05/17 at 09:00 Sertraline HCl (Zoloft) 75 mg DAILY PO Last administered on 05/14/17at 08:59; Start 05/06/17 at 09:00 Trazodone HCl (Desyrel) 100 mg PRN QHS PRN PO INSOMNIA/MAY REPEAT X1 Last administered on 05/06/17at 23:22; Start 05/05/17 at 19:30; Stop 05/10/17 at 18:29 ; Status DC Melatonin 3 mg QHS PO Last administered on 05/14/17at 19:47; Start 05/06/17 at 21:00 Divalproex Sodium (Depakote Sprinkles) 125 mg BID@0900,1400 PO Last administered on 05/10/17at 13:57; Start 05/07/17 at 14:00; Stop 05/10/17 at 18:29 ; Status DC Divalproex Sodium (Depakote Sprinkles) 125 mg QID PO Last administered on at 19:46; Start 05/10/17 at 21:00 Trazodone HCl (Desyrel) 100 mg HS PO ; Start 05/10/17 at 21:00; Status Cancel Trazodone HCl (Desyrel) 100 mg PRN QHS PRN PO SLEEP; Start 05/10/17 at 18:30; Status Cancel Trazodone HCl (Desyrel) 100 mg HS PO Last administered on 05/14/17at 19:46; Start 05/10/17 at 21:00 Trazodone HCl (Desyrel) 100 mg PRN QHS PRN PO SLEEP Last administered on at 23:09; Start 05/10/17 at 19:00 Quetiapine Fumarate (SEROquel) 25 mg BID@1300,2100 PO Last administered on 05/14at 19:47; Start 05/13/17 at 21:00 Amitriptyline HCl (Elavil) 25 mg QHS PO Last administered on 05/14/17at 19:48; Start 05/14/17 at 21:00 Active Scripts Active Reported Olanzapine 5 Mg Tablet 2.5 Mg PO HS Zoloft (Sertraline Hcl) 50 Mg Tablet 50 Mg PO DAILY Colace (Docusate Sodium) 100 Mg Capsule 100 Mg PO BID Aricept (Donepezil Hcl) 10 Mg Tablet 10 Mg PO QHS Calcium 500 + Vit D 400 Tablet (Calcium Carbonate/Vitamin D3) 1 Each Tablet 1 Each PO BID Namzaric 28 mg-10 mg Capsule (Memantine HCl/Donepezil HCl) 1 Each Cap.spr.24 1 Each PO QHS I have reviewed the current psychotropics carefully including drug interactions. Risk benefit ratio favors no change other than as noted in my dictated progress note. Diagnosis: Problems: (1) Anxiety disorder (2) Dementia in Alzheimer's disease with delusions (3) Dementia in Alzheimer's disease with depression (4) Dementia, vascular, with delusions (5) Dementia, vascular, with depression (6) Impulse control disorder JAKE SHIN MD May 14, 2017 20:13
[2017-05-15] MEDS: SERTRALINE 50 MG TABLET. PO SCH (09:11)
[2017-05-15] MEDS: QUEtiapine 25 MG TABLET. PO SCH ×4 (09:12→22:24)
[2017-05-15] MEDS: CALCIUM CARB/VIT D3 500/200 TABLET PO SCH ×2 (09:12→17:21)
[2017-05-15] MEDS: DOCUSATE SODIUM 100 MG CAPSULE PO SCH ×2 (09:12→20:06)
[2017-05-15] MEDS: DIVALPROEX 125 MG CAP.SPRINK PO SCH ×5 (09:13→21:00)
[2017-05-15 16:10] VITALS: BP 103/59
[2017-05-15] MEDS: AMITRIPTYLINE HCL 25 MG TABLET PO SCH (20:05)
[2017-05-15] MEDS: OLANZapine 2.5 MG TABLET PO SCH (20:06)
[2017-05-15] MEDS: MELATONIN 3 MG TABLET PO SCH (20:06)
[2017-05-15] MEDS: traZODone 100 MG TABLET. PO SCH (20:06)
--- NOTE | 2017-05-15 20:10 | PDOC ---
Exam Note: Yifan Note: Please also refer to the separate dictated note~for this date of service dictated separately.~Patient seen individually. Discussed the patient with Nursing staff reviewed the chart.~Reviewed interim history and current functioning. Reviewed vital signs,~Labs/ Radiology~and current medications noted below. Continue current treatment with the changes noted in the dictated addendum note Assessment: Vital Signs: Vital Signs Date Time Temp Pulse Resp B/P (MAP) Pulse Ox O2 Delivery O2 Flow Rate FiO2 05/15/17 16:10 97.8 79 20 103/59 (74) 95 Room Air I&O Intake and Output 05/15/17 07:00 Intake Total 360 ml Balance 360 ml Intake Oral 360 ml Current Medications: Meds: Current Medications Acetaminophen (Tylenol) 650 mg PRN Q6HRS PRN PO PAIN / TEMP; Start 04/30/17 at 10:15 Multi-Ingredient Ointment (Analgesic [place]) 1 asha PRN QID PRN TP MUSCLE PAIN; Start 04/30/17 at 10:15 Al Hydroxide/Mg Hydroxide (Mylanta Plus Xs) 15 ml PRN AFTMEALHC PRN PO DYSPEPSIA; Start 04/30/17 at 10:15 Magnesium Hydroxide (Milk Of Magnesia) 2,400 mg PRN QHS PRN PO CONSTIPATION Last administered on 05/14/17at 08:59; Start 04/30/17 at 10:15 Nicotine (Nicoderm Cq 21mg) 1 patch DAILY TD Last administered on 05/12/17at 10: 21; Start 04/30/17 at 11:00; Stop 05/12/17 at 16:01; Status DC Olanzapine (ZyPREXA ZYDIS) 5 mg PRN Q2HR PRN PO ANXIETY / AGITATION Last administered on 05/13/17at 12:23; Start 04/30/17 at 11:45 Docusate Sodium (Colace) 100 mg BID PO Last administered on 05/15/17at 20:06; Start 04/30/17 at 21:00 Donepezil HCl (Aricept) 10 mg QHS PO ; Start 04/30/17 at 21:00; Stop 04/30/17 at 21:00; Status DC Sertraline HCl (Zoloft) 50 mg DAILY PO Last administered on 05/04/17at 08:28; Start 05/01/17 at 09:00; Stop 05/05/17 at 19:11; Status DC Calcium/Vitamin D (Oscal D 500mg/ 200uts) 1 tab BIDWMEALS PO Last administered on 05/15/17at 17:21; Start 04/30/17 at 17:00 Memantine (Namenda) 10 mg BID PO Last administered on 05/01/17 09:31; Start 04/30/17 at 21:00; Stop 05/01/17 at 18:16; Status DC Donepezil HCl (Aricept) 10 mg BID PO Last administered on 05/01/17 09:31; Start 04/30/17 at 21:00; Stop 05/01/17 at 18:16; Status DC Quetiapine Fumarate (SEROquel) 12.5 mg BID92 PO Last administered on 05/01/17at 13:56; Start 05/01/17 at 09:00; Stop 05/01/17 at 18:16; Status DC Olanzapine (ZyPREXA) 2.5 mg HS PO Last administered on 05/15/17at 20:06; Start 05/01/17 at 21:00 Quetiapine Fumarate (SEROquel) 12.5 mg QID PO Last administered on 05/04/17at 17: 02; Start 05/01/17 at 21:00; Stop 05/04/17 at 18:04; Status DC Mirtazapine (Remeron) 7.5 mg QHS PO Last administered on 05/03/17at 19:41; Start 05/03/17 at 21:00; Stop 05/04/17 at 18:04; Status DC Trazodone HCl (Desyrel) 50 mg PRN QHS PRN PO INSOMNIA Last administered on at 20:20; Start 05/03/17 at 18:15; Stop 05/05/17 at 19:11; Status DC Mirtazapine (Remeron) 15 mg QHS PO Last administered on 05/13/17at 20:29; Start 05/04/17 at 21:00; Stop 05/14/17 at 15:10; Status DC Quetiapine Fumarate (SEROquel) 12.5 mg BID@1300,2100 PO Last administered on at 12:22; Start 05/04/17 at 21:00; Stop 05/13/17 at 17:49; Status DC Quetiapine Fumarate (SEROquel) 25 mg BID@0900,1700 PO Last administered on 05/15at 17:21; Start 05/05/17 at 09:00 Sertraline HCl (Zoloft) 75 mg DAILY PO Last administered on 05/15/17at 09:11; Start 05/06/17 at 09:00 Trazodone HCl (Desyrel) 100 mg PRN QHS PRN PO INSOMNIA/MAY REPEAT X1 Last administered on 05/06/17at 23:22; Start 05/05/17 at 19:30; Stop 05/10/17 at 18:29 ; Status DC Melatonin 3 mg QHS PO Last administered on 05/15/17at 20:06; Start 05/06/17 at 21:00 Divalproex Sodium (Depakote Sprinkles) 125 mg BID@0900,1400 PO Last administered on 05/10/17at 13:57; Start 05/07/17 at 14:00; Stop 05/10/17 at 18:29 ; Status DC Divalproex Sodium (Depakote Sprinkles) 125 mg QID PO Last administered on at 17:21; Start 05/10/17 at 21:00; Stop 05/15/17 at 19:22; Status DC Trazodone HCl (Desyrel) 100 mg HS PO ; Start 05/10/17 at 21:00; Status Cancel Trazodone HCl (Desyrel) 100 mg PRN QHS PRN PO SLEEP; Start 05/10/17 at 18:30; Status Cancel Trazodone HCl (Desyrel) 100 mg HS PO Last administered on 05/15/17at 20:06; Start 05/10/17 at 21:00 Trazodone HCl (Desyrel) 100 mg PRN QHS PRN PO SLEEP Last administered on at 23:09; Start 05/10/17 at 19:00 Quetiapine Fumarate (SEROquel) 25 mg BID@1300,2100 PO Last administered on 05/15at 13:19; Start 05/13/17 at 21:00 Amitriptyline HCl (Elavil) 25 mg QHS PO Last administered on 05/15/17at 20:05; Start 05/14/17 at 21:00 Divalproex Sodium (Depakote Sprinkles) 250 mg BID PO ; Start 05/15/17 at 21:00; Status UNV Divalproex Sodium (Depakote Sprinkles) 250 mg HS PO Last administered on at 20:07; Start 05/15/17 at 21:00; Status UNV Divalproex Sodium (Depakote Sprinkles) 125 mg BID@1300,1700 PO ; Start 05/16/17 at 13:00; Status UNV Active Scripts Active Reported Olanzapine 5 Mg Tablet 2.5 Mg PO HS Zoloft (Sertraline Hcl) 50 Mg Tablet 50 Mg PO DAILY Colace (Docusate Sodium) 100 Mg Capsule 100 Mg PO BID Aricept (Donepezil Hcl) 10 Mg Tablet 10 Mg PO QHS Calcium 500 + Vit D 400 Tablet (Calcium Carbonate/Vitamin D3) 1 Each Tablet 1 Each PO BID Namzaric 28 mg-10 mg Capsule (Memantine HCl/Donepezil HCl) 1 Each Cap.spr.24 1 Each PO QHS I have reviewed the current psychotropics carefully including drug interactions. Risk benefit ratio favors no change other than as noted in my dictated progress note. Diagnosis: Problems: (1) Anxiety disorder (2) Dementia in Alzheimer's disease with delusions (3) Dementia in Alzheimer's disease with depression (4) Dementia, vascular, with delusions (5) Dementia, vascular, with depression (6) Impulse control disorder JAKE SHIN MD May 15, 2017 20:10
[2017-05-15] MEDS ORDERED: DIVALPROEX 125 MG CAP.SPRINK PO SCH (21:00)
[2017-05-15] MEDS ORDERED: DIVALPROEX 125 MG CAP.SPRINK PO ONE (23:30)
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
[2017-05-16] MEDS: SERTRALINE 50 MG TABLET. PO SCH (08:20)
[2017-05-16] MEDS: DOCUSATE SODIUM 100 MG CAPSULE PO SCH ×2 (08:20→19:55)
[2017-05-16] MEDS: CALCIUM CARB/VIT D3 500/200 TABLET PO SCH ×2 (08:21→17:00)
[2017-05-16] MEDS: QUEtiapine 25 MG TABLET. PO SCH ×4 (08:21→19:57)
[2017-05-16] MEDS: DIVALPROEX 125 MG CAP.SPRINK PO SCH ×4 (10:05→19:55)
--- NOTE | 2017-05-16 11:32 | PN ---
DATE: 05/14/2017 This late entry 05/14/2017 covers elements not covered in my initial note 05/14/2017. SUBJECTIVE: The patient was staffed at a treatment team meeting with the entire team morning of 05/14/2017, seen individually evening of 05/14/2017. The patient has had a fairly difficult day. Reviewed his history at length during the individual visit and at this treatment team meeting. He has been disorganized, wandering, had to be placed in the separate hallway to separate him from the others, slept just 2-3/4 hours previous evening. His has dementia and is at [facility] as well and it is unclear whether he may be accepted back there. REVIEW OF SYSTEMS: No CV, , pulmonary, eye, ENT system symptoms on review. Reliability poor. MENTAL STATUS EXAM: Oriented to himself. Insight, judgment, recent and remote memory, attention, concentration, fund of knowledge poor, consistent with his diagnosis mentioned in my initial note. IMPRESSION: Major neurocognitive disorder, Alzheimer, vascular with depression, delusion, behavioral disturbance. Rest unchanged. PLAN: Remeron 15 mg at bedtime has been ineffective for insomnia. We will change it to amitriptyline 25 mg p.o. at bedtime. Maintain rest of the psychotropics mentioned in my initial note. JAKE SHIN MD DR: SHERON/thuan JOB#: [id number] / [id number]
[2017-05-16] MEDS: MAGNESIUM HYDROXIDE 2,400 MG/30 ML ORAL.SUSP. PO PRN (13:40)
[2017-05-16 16:14] VITALS: BP 121/66
[2017-05-16] MEDS: AMITRIPTYLINE HCL 25 MG TABLET PO SCH (19:55)
[2017-05-16] MEDS: MELATONIN 3 MG TABLET PO SCH (19:55)
[2017-05-16] MEDS: traZODone 100 MG TABLET. PO SCH (19:55)
[2017-05-16] MEDS: OLANZapine 2.5 MG TABLET PO SCH (19:55)
--- NOTE | 2017-05-16 20:31 | PDOC ---
Exam Note: Yifan Note: Please also refer to the separate dictated note~for this date of service dictated separately.~Patient seen individually. Discussed the patient with Nursing staff reviewed the chart.~Reviewed interim history and current functioning. Reviewed vital signs,~Labs/ Radiology~and current medications noted below. Continue current treatment with the changes noted in the dictated addendum note Assessment: Vital Signs: Vital Signs Date Time Temp Pulse Resp B/P (MAP) Pulse Ox O2 Delivery O2 Flow Rate FiO2 05/16/17 16:14 98.1 88 20 121/66 (84) 98 05/15/17 16:10 Room Air I&O Intake and Output 05/16/17 07:00 Intake Total 480 ml Balance 480 ml Intake Oral 480 ml Current Medications: Meds: Current Medications Acetaminophen (Tylenol) 650 mg PRN Q6HRS PRN PO PAIN / TEMP; Start 04/30/17 at 10:15 Multi-Ingredient Ointment (Analgesic [place]) 1 asha PRN QID PRN TP MUSCLE PAIN; Start 04/30/17 at 10:15 Al Hydroxide/Mg Hydroxide (Mylanta Plus Xs) 15 ml PRN AFTMEALHC PRN PO DYSPEPSIA; Start 04/30/17 at 10:15 Magnesium Hydroxide (Milk Of Magnesia) 2,400 mg PRN QHS PRN PO CONSTIPATION Last administered on 05/16/17at 13:40; Start 04/30/17 at 10:15 Nicotine (Nicoderm Cq 21mg) 1 patch DAILY TD Last administered on 05/12/17at 10: 21; Start 04/30/17 at 11:00; Stop 05/12/17 at 16:01; Status DC Olanzapine (ZyPREXA ZYDIS) 5 mg PRN Q2HR PRN PO ANXIETY / AGITATION Last administered on 05/13/17at 12:23; Start 04/30/17 at 11:45 Docusate Sodium (Colace) 100 mg BID PO Last administered on 05/16/17at 19:55; Start 04/30/17 at 21:00 Donepezil HCl (Aricept) 10 mg QHS PO ; Start 04/30/17 at 21:00; Stop 04/30/17 at 21:00; Status DC Sertraline HCl (Zoloft) 50 mg DAILY PO Last administered on 05/04/17at 08:28; Start 05/01/17 at 09:00; Stop 05/05/17 at 19:11; Status DC Calcium/Vitamin D (Oscal D 500mg/ 200uts) 1 tab BIDWMEALS PO Last administered on 05/16/17at 17:00; Start 04/30/17 at 17:00 Memantine (Namenda) 10 mg BID PO Last administered on 05/01/17at 09:31; Start 04/30/17 at 21:00; Stop 05/01/17 at 18:16; Status DC Donepezil HCl (Aricept) 10 mg BID PO Last administered on 05/01/17at 09:31; Start 04/30/17 at 21:00; Stop 05/01/17 at 18:16; Status DC Quetiapine Fumarate (SEROquel) 12.5 mg BID92 PO Last administered on 05/01/17at 13:56; Start 05/01/17 at 09:00; Stop 05/01/17 at 18:16; Status DC Olanzapine (ZyPREXA) 2.5 mg HS PO Last administered on 05/16/17at 19:55; Start 05/01/17 at 21:00 Quetiapine Fumarate (SEROquel) 12.5 mg QID PO Last administered on 05/04/17at 17: 02; Start 05/01/17 at 21:00; Stop 05/04/17 at 18:04; Status DC Mirtazapine (Remeron) 7.5 mg QHS PO Last administered on 05/03/17at 19:41; Start 05/03/17 at 21:00; Stop 05/04/17 at 18:04; Status DC Trazodone HCl (Desyrel) 50 mg PRN QHS PRN PO INSOMNIA Last administered on at 20:20; Start 05/03/17 at 18:15; Stop 05/05/17 at 19:11; Status DC Mirtazapine (Remeron) 15 mg QHS PO Last administered on 05/13/17at 20:29; Start 05/04/17 at 21:00; Stop 05/14/17 at 15:10; Status DC Quetiapine Fumarate (SEROquel) 12.5 mg BID@1300,2100 PO Last administered on at 12:22; Start 05/04/17 at 21:00; Stop 05/13/17 at 17:49; Status DC Quetiapine Fumarate (SEROquel) 25 mg BID@0900,1700 PO Last administered on 05/16at 17:00; Start 05/05/17 at 09:00 Sertraline HCl (Zoloft) 75 mg DAILY PO Last administered on 05/16/17at 08:20; Start 05/06/17 at 09:00 Trazodone HCl (Desyrel) 100 mg PRN QHS PRN PO INSOMNIA/MAY REPEAT X1 Last administered on 05/06/17at 23:22; Start 05/05/17 at 19:30; Stop 05/10/17 at 18:29 ; Status DC Melatonin 3 mg QHS PO Last administered on 05/16/17at 19:55; Start 05/06/17 at 21:00 Divalproex Sodium (Depakote Sprinkles) 125 mg BID@0900,1400 PO Last administered on 05/10/17at 13:57; Start 05/07/17 at 14:00; Stop 05/10/17 at 18:29 ; Status DC Divalproex Sodium (Depakote Sprinkles) 125 mg QID PO Last administered on at 17:21; Start 05/10/17 at 21:00; Stop 05/15/17 at 19:22; Status DC Trazodone HCl (Desyrel) 100 mg HS PO ; Start 05/10/17 at 21:00; Status Cancel Trazodone HCl (Desyrel) 100 mg PRN QHS PRN PO SLEEP; Start 05/10/17 at 18:30; Status Cancel Trazodone HCl (Desyrel) 100 mg HS PO Last administered on 05/16/17at 19:55; Start 05/10/17 at 21:00 Trazodone HCl (Desyrel) 100 mg PRN QHS PRN PO SLEEP Last administered on at 23:09; Start 05/10/17 at 19:00 Quetiapine Fumarate (SEROquel) 25 mg BID@1300,2100 PO Last administered on 05/16at 19:57; Start 05/13/17 at 21:00 Amitriptyline HCl (Elavil) 25 mg QHS PO Last administered on 05/16/17at 19:55; Start 05/14/17 at 21:00 Divalproex Sodium (Depakote Sprinkles) 250 mg BID PO ; Start 05/15/17 at 21:00; Stop 05/16/17 at 08:39; Status DC Divalproex Sodium (Depakote Sprinkles) 250 mg HS PO Last administered on at 20:07; Start 05/15/17 at 21:00; Stop 05/16/17 at 08:38; Status DC Divalproex Sodium (Depakote Sprinkles) 125 mg BID@1300,1700 PO Last administered on 05/16/17at 17:00; Start 05/16/17 at 13:00 Divalproex Sodium (Depakote Sprinkles) 250 mg 1X ONCE PO Last administered on 05/15/17at 23:58; Start 05/15/17 at 23:30; Stop 05/15/17 at 23:31; Status DC Divalproex Sodium (Depakote Sprinkles) 250 mg BID PO Last administered on at 19:55; Start 05/16/17 at 09:00 Active Scripts Active Reported Olanzapine 5 Mg Tablet 2.5 Mg PO HS Zoloft (Sertraline Hcl) 50 Mg Tablet 50 Mg PO DAILY Colace (Docusate Sodium) 100 Mg Capsule 100 Mg PO BID Aricept (Donepezil Hcl) 10 Mg Tablet 10 Mg PO QHS Calcium 500 + Vit D 400 Tablet (Calcium Carbonate/Vitamin D3) 1 Each Tablet 1 Each PO BID Namzaric 28 mg-10 mg Capsule (Memantine HCl/Donepezil HCl) 1 Each Cap.spr.24 1 Each PO QHS I have reviewed the current psychotropics carefully including drug interactions. Risk benefit ratio favors no change other than as noted in my dictated progress note. Diagnosis: Problems: (1) Anxiety disorder (2) Dementia in Alzheimer's disease with delusions (3) Dementia in Alzheimer's disease with depression (4) Dementia, vascular, with delusions (5) Dementia, vascular, with depression (6) Impulse control disorder JAKE SHIN MD May 16, 2017 20:31
[2017-05-17 05:39] VITALS: BP 138/74
[2017-05-17] MEDS: CALCIUM CARB/VIT D3 500/200 TABLET PO SCH ×2 (10:05→17:09)
[2017-05-17] MEDS: QUEtiapine 25 MG TABLET. PO SCH ×6 (10:05→21:00)
[2017-05-17] MEDS: SERTRALINE 50 MG TABLET. PO SCH (10:05)
[2017-05-17] MEDS: DIVALPROEX 125 MG CAP.SPRINK PO SCH ×5 (10:05→21:00)
[2017-05-17] MEDS: DOCUSATE SODIUM 100 MG CAPSULE PO SCH ×3 (10:05→21:00)
[2017-05-17 16:17] VITALS: BP 102/65
[2017-05-17] MEDS: MAGNESIUM HYDROXIDE 2,400 MG/30 ML ORAL.SUSP. PO PRN (17:10)
--- NOTE | 2017-05-17 18:37 | PN ---
DATE: 05/15/2017 This late entry 05/15/2017 covers elements not covered in my initial note 05/15/2017. SUBJECTIVE: Per nursing report, the patient is a little better. He is still not able to sit long enough to eat anything, takes Boost with each meal, restless, anxious, slept 5-1/2 hours previous evening. REVIEW OF SYSTEMS: No CV, , pulmonary, eye, ENT system symptoms on review. Reliability poor. MENTAL STATUS EXAM: Oriented to himself. Insight, judgment, recent and remote memory, attention, concentration, fund of knowledge poor, consistent with his diagnosis mentioned in my initial note. IMPRESSION: Major neurocognitive disorder, Alzheimer, vascular with depression, delusion, behavioral disturbance. Rest unchanged. PLAN: Increase the Depakote Sprinkles from 125 mg 4 times a day to 250 mg a.m. and at bedtime 125 mg b.i.d. Check CBC, CMP, valproic acid level in 3 days. Continue rest unchanged. MAN Tiago SHIN MD DR: SHERON/thuan JOB#: [id number] / [id number]
[2017-05-17] MEDS: traZODone 100 MG TABLET. PO SCH ×2 (19:43→21:00)
[2017-05-17] MEDS: OLANZapine 2.5 MG TABLET PO SCH ×2 (19:43→21:00)
[2017-05-17] MEDS: MELATONIN 3 MG TABLET PO SCH ×2 (19:43→21:00)
[2017-05-17] MEDS: AMITRIPTYLINE HCL 25 MG TABLET PO SCH ×2 (19:43→21:00)
--- NOTE | 2017-05-17 20:06 | PDOC ---
Exam Note: Yifan Note: Please also refer to the separate dictated note~for this date of service dictated separately.~Patient seen individually. Discussed the patient with Nursing staff reviewed the chart.~Reviewed interim history and current functioning. Reviewed vital signs,~Labs/ Radiology~and current medications noted below. Continue current treatment with the changes noted in the dictated addendum note Assessment: Vital Signs: Vital Signs Date Time Temp Pulse Resp B/P (MAP) Pulse Ox O2 Delivery O2 Flow Rate FiO2 05/17/17 16:17 97.7 71 19 102/65 (77) 96 05/15/17 16:10 Room Air I&O Intake and Output 05/17/17 07:00 Intake Total 60 ml Balance 60 ml Intake Oral 60 ml Current Medications: Meds: Current Medications Acetaminophen (Tylenol) 650 mg PRN Q6HRS PRN PO PAIN / TEMP; Start 04/30/17 at 10:15 Multi-Ingredient Ointment (Analgesic [place]) 1 asha PRN QID PRN TP MUSCLE PAIN; Start 04/30/17 at 10:15 Al Hydroxide/Mg Hydroxide (Mylanta Plus Xs) 15 ml PRN AFTMEALHC PRN PO DYSPEPSIA; Start 04/30/17 at 10:15 Magnesium Hydroxide (Milk Of Magnesia) 2,400 mg PRN QHS PRN PO CONSTIPATION Last administered on 05/17/17at 17:10; Start 04/30/17 at 10:15 Nicotine (Nicoderm Cq 21mg) 1 patch DAILY TD Last administered on 05/12/17at 10: 21; Start 04/30/17 at 11:00; Stop 05/12/17 at 16:01; Status DC Olanzapine (ZyPREXA ZYDIS) 5 mg PRN Q2HR PRN PO ANXIETY / AGITATION Last administered on 05/13/17at 12:23; Start 04/30/17 at 11:45 Docusate Sodium (Colace) 100 mg BID PO Last administered on 05/17/17at 19:43; Start 04/30/17 at 21:00 Donepezil HCl (Aricept) 10 mg QHS PO ; Start 04/30/17 at 21:00; Stop 04/30/17 at 21:00; Status DC Sertraline HCl (Zoloft) 50 mg DAILY PO Last administered on 05/04/17at 08:28; Start 05/01/17 at 09:00; Stop 05/05/17 at 19:11; Status DC Calcium/Vitamin D (Oscal D 500mg/ 200uts) 1 tab BIDWMEALS PO Last administered on 05/17/17at 17:09; Start 04/30/17 at 17:00 Memantine (Namenda) 10 mg BID PO Last administered on 05/01/17at 09:31; Start 04/30/17 at 21:00; Stop 05/01/17 at 18:16; Status DC Donepezil HCl (Aricept) 10 mg BID PO Last administered on 05/01/17at 09:31; Start 04/30/17 at 21:00; Stop 05/01/17 at 18:16; Status DC Quetiapine Fumarate (SEROquel) 12.5 mg BID92 PO Last administered on 05/01/17at 13:56; Start 05/01/17 at 09:00; Stop 05/01/17 at 18:16; Status DC Olanzapine (ZyPREXA) 2.5 mg HS PO Last administered on 05/17/17at 19:43; Start 05/01/17 at 21:00 Quetiapine Fumarate (SEROquel) 12.5 mg QID PO Last administered on 05/04/17at 17: 02; Start 05/01/17 at 21:00; Stop 05/04/17 at 18:04; Status DC Mirtazapine (Remeron) 7.5 mg QHS PO Last administered on 05/03/17at 19:41; Start 05/03/17 at 21:00; Stop 05/04/17 at 18:04; Status DC Trazodone HCl (Desyrel) 50 mg PRN QHS PRN PO INSOMNIA Last administered on at 20:20; Start 05/03/17 at 18:15; Stop 05/05/17 at 19:11; Status DC Mirtazapine (Remeron) 15 mg QHS PO Last administered on 05/13/17at 20:29; Start 05/04/17 at 21:00; Stop 05/14/17 at 15:10; Status DC Quetiapine Fumarate (SEROquel) 12.5 mg BID@1300,2100 PO Last administered on at 12:22; Start 05/04/17 at 21:00; Stop 05/13/17 at 17:49; Status DC Quetiapine Fumarate (SEROquel) 25 mg BID@0900,1700 PO Last administered on 05/17at 17:10; Start 05/05/17 at 09:00 Sertraline HCl (Zoloft) 75 mg DAILY PO Last administered on 05/17/17at 10:05; Start 05/06/17 at 09:00 Trazodone HCl (Desyrel) 100 mg PRN QHS PRN PO INSOMNIA/MAY REPEAT X1 Last administered on 05/06/17at 23:22; Start 05/05/17 at 19:30; Stop 05/10/17 at 18:29 ; Status DC Melatonin 3 mg QHS PO Last administered on 05/17/17at 19:43; Start 05/06/17 at 21:00 Divalproex Sodium (Depakote Sprinkles) 125 mg BID@0900,1400 PO Last administered on 05/10/17at 13:57; Start 05/07/17 at 14:00; Stop 05/10/17 at 18:29 ; Status DC Divalproex Sodium (Depakote Sprinkles) 125 mg QID PO Last administered on at 17:21; Start 05/10/17 at 21:00; Stop 05/15/17 at 19:22; Status DC Trazodone HCl (Desyrel) 100 mg HS PO ; Start 05/10/17 at 21:00; Status Cancel Trazodone HCl (Desyrel) 100 mg PRN QHS PRN PO SLEEP; Start 05/10/17 at 18:30; Status Cancel Trazodone HCl (Desyrel) 100 mg HS PO Last administered on 05/17/17at 19:43; Start 05/10/17 at 21:00 Trazodone HCl (Desyrel) 100 mg PRN QHS PRN PO SLEEP Last administered on at 23:09; Start 05/10/17 at 19:00 Quetiapine Fumarate (SEROquel) 25 mg BID@1300,2100 PO Last administered on 05/17at 19:46; Start 05/13/17 at 21:00 Amitriptyline HCl (Elavil) 25 mg QHS PO Last administered on 05/16/17at 19:55; Start 05/14/17 at 21:00; Stop 05/17/17 at 19:21; Status DC Divalproex Sodium (Depakote Sprinkles) 250 mg BID PO ; Start 05/15/17 at 21:00; Stop 05/16/17 at 08:39; Status DC Divalproex Sodium (Depakote Sprinkles) 250 mg HS PO Last administered on at 20:07; Start 05/15/17 at 21:00; Stop 05/16/17 at 08:38; Status DC Divalproex Sodium (Depakote Sprinkles) 125 mg BID@1300,1700 PO Last administered on 05/17/17at 17:09; Start 05/16/17 at 13:00 Divalproex Sodium (Depakote Sprinkles) 250 mg 1X ONCE PO Last administered on 05/15/17at 23:58; Start 05/15/17 at 23:30; Stop 05/15/17 at 23:31; Status DC Divalproex Sodium (Depakote Sprinkles) 250 mg BID PO Last administered on at 19:42; Start 05/16/17 at 09:00 Amitriptyline HCl (Elavil) 50 mg QHS PO Last administered on 05/17/17at 19:43; Start 05/17/17 at 21:00 Active Scripts Active Reported Olanzapine 5 Mg Tablet 2.5 Mg PO HS Zoloft (Sertraline Hcl) 50 Mg Tablet 50 Mg PO DAILY Colace (Docusate Sodium) 100 Mg Capsule 100 Mg PO BID Aricept (Donepezil Hcl) 10 Mg Tablet 10 Mg PO QHS Calcium 500 + Vit D 400 Tablet (Calcium Carbonate/Vitamin D3) 1 Each Tablet 1 Each PO BID Namzaric 28 mg-10 mg Capsule (Memantine HCl/Donepezil HCl) 1 Each Cap.spr.24 1 Each PO QHS I have reviewed the current psychotropics carefully including drug interactions. Risk benefit ratio favors no change other than as noted in my dictated progress note. Diagnosis: Problems: (1) Anxiety disorder (2) Dementia in Alzheimer's disease with delusions (3) Dementia in Alzheimer's disease with depression (4) Dementia, vascular, with delusions (5) Dementia, vascular, with depression (6) Impulse control disorder JAKE SHIN MD May 17, 2017 20:06
[2017-05-18 07:00] VITALS: BP 110/80
[2017-05-18 07:48] LABS: ALBUMIN 3.3 g/dL (3.4-5.0); ALBUMIN/GLOBULIN RATIO 0.8 (1.0-1.7); ALK PHOS 108 U/L (46-116); ALT (SGPT) 35 U/L (16-63); ANION GAP 8 (6-14); AST (SGOT) 28 U/L (15-37); BLOOD UREA NITROGEN 40 mg/dL (8-26); BUN/CREATININE RATIO 29 (6-20); CALCIUM 9.3 mg/dL (8.5-10.1); CARBON DIOXIDE 29 mmol/L (21-32); CHLORIDE 113 mmol/L (98-107); CREATININE 1.4 mg/dL (0.7-1.3); GLUCOSE 82 mg/dL (70-99); POTASSIUM 4.2 mmol/L (3.5-5.1); SODIUM 150 mmol/L (136-145); TOTAL BILIRUBIN 0.4 mg/dL (0.2-1.0); TOTAL PROTEIN 7.5 g/dL (6.4-8.2)
[2017-05-18 07:54] LABS: BASO % 1 % (0-3); EOS # 0.2 x10^3/uL (0.0-0.7); EOS % 4 % (0-3); HEMATOCRIT 37.6 % (39.0-53.0); HEMOGLOBIN 12.2 g/dL (13.0-17.5); LYMPH # 1.9 x10^3/uL (1.0-4.8); LYMPH % 36 % (24-48); MEAN CORPUSCULAR HEMOGLOBIN 30 pg (25-35); MEAN CORPUSCULAR HGB CONC 32 g/dL (31-37); MEAN CORPUSCULAR VOLUME 94 fL (79-100); MONO # 0.7 x10^3/uL (0.0-1.1); MONO % 13 % (0-9); NEUT # 2.5 x10^3uL (1.8-7.7); NEUT % 47 % (31-73); PLATELET COUNT 82 x10^3/uL (140-400); RED BLOOD COUNT 4.02 x10^6/uL (4.30-5.70); RED CELL DISTRIBUTION WIDTH 15.4 % (11.5-14.5); VAL ACID 27 mcg/mL (50-100); WHITE BLOOD COUNT 5.4 x10^3/uL (4.0-11.0)
[2017-05-18] MEDS: SERTRALINE 50 MG TABLET. PO SCH (09:16)
[2017-05-18] MEDS: DIVALPROEX 125 MG CAP.SPRINK PO SCH ×4 (09:16→20:02)
[2017-05-18] MEDS: DOCUSATE SODIUM 100 MG CAPSULE PO SCH ×2 (09:17→20:00)
[2017-05-18] MEDS: CALCIUM CARB/VIT D3 500/200 TABLET PO SCH ×2 (09:17→16:53)
[2017-05-18] MEDS: QUEtiapine 25 MG TABLET. PO SCH ×4 (09:17→20:02)
[2017-05-18 16:02] VITALS: BP 140/82
[2017-05-18] MEDS: AMITRIPTYLINE HCL 25 MG TABLET PO SCH (20:00)
[2017-05-18] MEDS: OLANZapine 2.5 MG TABLET PO SCH (20:00)
[2017-05-18] MEDS: traZODone 100 MG TABLET. PO SCH (20:00)
[2017-05-18] MEDS: MELATONIN 3 MG TABLET PO SCH (20:01)
--- NOTE | 2017-05-18 20:06 | PDOC ---
Exam Note: Yifan Note: Please also refer to the separate dictated note~for this date of service dictated separately.~Patient seen individually. Discussed the patient with Nursing staff reviewed the chart.~Reviewed interim history and current functioning. Reviewed vital signs,~Labs/ Radiology~and current medications noted below. Continue current treatment with the changes noted in the dictated addendum note Assessment: Vital Signs: Vital Signs Date Time Temp Pulse Resp B/P (MAP) Pulse Ox O2 Delivery O2 Flow Rate FiO2 05/18/17 16:02 97.9 100 20 140/82 (101) 95 05/15/17 16:10 Room Air I&O Intake and Output 05/18/17 07:00 Intake Total 120 ml Balance 120 ml Intake Oral 120 ml Labs: Laboratory Tests Test 05/18/17 07:22 White Blood Count 5.4 x10^3/uL (4.0-11.0) Red Blood Count 4.02 x10^6/uL (4.30-5.70) L Hemoglobin 12.2 g/dL (13.0-17.5) L Hematocrit 37.6 % (39.0-53.0) L Mean Corpuscular Volume 94 fL (79-100) Mean Corpuscular Hemoglobin 30 pg (25-35) Mean Corpuscular Hemoglobin Concent 32 g/dL (31-37) Red Cell Distribution Width 15.4 % (11.5-14.5) H Platelet Count 82 x10^3/uL (140-400) L Neutrophils (%) (Auto) 47 % (31-73) Lymphocytes (%) (Auto) 36 % (24-48) Monocytes (%) (Auto) 13 % (0-9) H Eosinophils (%) (Auto) 4 % (0-3) H Basophils (%) (Auto) 1 % (0-3) Neutrophils # (Auto) 2.5 x10^3uL (1.8-7.7) Lymphocytes # (Auto) 1.9 x10^3/uL (1.0-4.8) Monocytes # (Auto) 0.7 x10^3/uL (0.0-1.1) Eosinophils # (Auto) 0.2 x10^3/uL (0.0-0.7) Basophils # (Auto) 0.0 x10^3/uL (0.0-0.2) Sodium Level 150 mmol/L (136-145) H Potassium Level 4.2 mmol/L (3.5-5.1) Chloride Level 113 mmol/L (98-107) H Carbon Dioxide Level 29 mmol/L (21-32) Anion Gap 8 (6-14) Blood Urea Nitrogen 40 mg/dL (8-26) H Creatinine 1.4 mg/dL (0.7-1.3) H Estimated GFR (Cockcroft-Gault) 50.0 BUN/Creatinine Ratio 29 (6-20) H Glucose Level 82 mg/dL (70-99) Calcium Level 9.3 mg/dL (8.5-10.1) Total Bilirubin 0.4 mg/dL (0.2-1.0) Aspartate Amino Transferase (AST) 28 U/L (15-37) Alanine Aminotransferase (ALT) 35 U/L (16-63) Alkaline Phosphatase 108 U/L (46-116) Total Protein 7.5 g/dL (6.4-8.2) Albumin 3.3 g/dL (3.4-5.0) L Albumin/Globulin Ratio 0.8 (1.0-1.7) L Valproic Acid Level 27 mcg/mL (50-100) L Valproic Acid Last Dose Date 05/17/17 Valproic Acid Last Dose Time 2100 Current Medications: Meds: Current Medications Acetaminophen (Tylenol) 650 mg PRN Q6HRS PRN PO PAIN / TEMP; Start 04/30/17 at 10:15 Multi-Ingredient Ointment (Analgesic [place]) 1 asha PRN QID PRN TP MUSCLE PAIN; Start 04/30/17 at 10:15 Al Hydroxide/Mg Hydroxide (Mylanta Plus Xs) 15 ml PRN AFTMEALHC PRN PO DYSPEPSIA; Start 04/30/17 at 10:15 Magnesium Hydroxide (Milk Of Magnesia) 2,400 mg PRN QHS PRN PO CONSTIPATION Last administered on 05/17/17at 17:10; Start 04/30/17 at 10:15 Nicotine (Nicoderm Cq 21mg) 1 patch DAILY TD Last administered on 05/12/17at 10: 21; Start 04/30/17 at 11:00; Stop 05/12/17 at 16:01; Status DC Olanzapine (ZyPREXA ZYDIS) 5 mg PRN Q2HR PRN PO ANXIETY / AGITATION Last administered on 05/18/17at 11:27; Start 04/30/17 at 11:45 Docusate Sodium (Colace) 100 mg BID PO Last administered on 05/18/17at 09:17; Start 04/30/17 at 21:00 Donepezil HCl (Aricept) 10 mg QHS PO ; Start 04/30/17 at 21:00; Stop 04/30/17 at 21:00; Status DC Sertraline HCl (Zoloft) 50 mg DAILY PO Last administered on 05/04/17at 08:28; Start 05/01/17 at 09:00; Stop 05/05/17 at 19:11; Status DC Calcium/Vitamin D (Oscal D 500mg/ 200uts) 1 tab BIDWMEALS PO Last administered on 05/18/17at 16:53; Start 04/30/17 at 17:00 Memantine (Namenda) 10 mg BID PO Last administered on 05/01/17at 09:31; Start 04/30/17 at 21:00; Stop 05/01/17 at 18:16; Status DC Donepezil HCl (Aricept) 10 mg BID PO Last administered on 05/01/17at 09:31; Start 04/30/17 at 21:00; Stop 05/01/17 at 18:16; Status DC Quetiapine Fumarate (SEROquel) 12.5 mg BID92 PO Last administered on 05/01/17at 13:56; Start 05/01/17 at 09:00; Stop 05/01/17 at 18:16; Status DC Olanzapine (ZyPREXA) 2.5 mg HS PO Last administered on 05/16/17at 19:55; Start 05/01/17 at 21:00 Quetiapine Fumarate (SEROquel) 12.5 mg QID PO Last administered on 05/04/17at 17: 02; Start 05/01/17 at 21:00; Stop 05/04/17 at 18:04; Status DC Mirtazapine (Remeron) 7.5 mg QHS PO Last administered on 05/03/17at 19:41; Start 05/03/17 at 21:00; Stop 05/04/17 at 18:04; Status DC Trazodone HCl (Desyrel) 50 mg PRN QHS PRN PO INSOMNIA Last administered on at 20:20; Start 05/03/17 at 18:15; Stop 05/05/17 at 19:11; Status DC Mirtazapine (Remeron) 15 mg QHS PO Last administered on 05/13/17at 20:29; Start 05/04/17 at 21:00; Stop 05/14/17 at 15:10; Status DC Quetiapine Fumarate (SEROquel) 12.5 mg BID@1300,2100 PO Last administered on at 12:22; Start 05/04/17 at 21:00; Stop 05/13/17 at 17:49; Status DC Quetiapine Fumarate (SEROquel) 25 mg BID@0900,1700 PO Last administered on 05/18at 16:53; Start 05/05/17 at 09:00 Sertraline HCl (Zoloft) 75 mg DAILY PO Last administered on 05/18/17at 09:16; Start 05/06/17 at 09:00 Trazodone HCl (Desyrel) 100 mg PRN QHS PRN PO INSOMNIA/MAY REPEAT X1 Last administered on 05/06/17at 23:22; Start 05/05/17 at 19:30; Stop 05/10/17 at 18:29 ; Status DC Melatonin 3 mg QHS PO Last administered on 05/16/17at 19:55; Start 05/06/17 at 21:00 Divalproex Sodium (Depakote Sprinkles) 125 mg BID@0900,1400 PO Last administered on 05/10/17at 13:57; Start 05/07/17 at 14:00; Stop 05/10/17 at 18:29 ; Status DC Divalproex Sodium (Depakote Sprinkles) 125 mg QID PO Last administered on at 17:21; Start 05/10/17 at 21:00; Stop 05/15/17 at 19:22; Status DC Trazodone HCl (Desyrel) 100 mg HS PO ; Start 05/10/17 at 21:00; Status Cancel Trazodone HCl (Desyrel) 100 mg PRN QHS PRN PO SLEEP; Start 05/10/17 at 18:30; Status Cancel Trazodone HCl (Desyrel) 100 mg HS PO Last administered on 05/16/17at 19:55; Start 05/10/17 at 21:00 Trazodone HCl (Desyrel) 100 mg PRN QHS PRN PO SLEEP Last administered on at 23:09; Start 05/10/17 at 19:00 Quetiapine Fumarate (SEROquel) 25 mg BID@1300,2100 PO Last administered on 05/18at 13:25; Start 05/13/17 at 21:00 Amitriptyline HCl (Elavil) 25 mg QHS PO Last administered on 05/16/17at 19:55; Start 05/14/17 at 21:00; Stop 05/17/17 at 19:21; Status DC Divalproex Sodium (Depakote Sprinkles) 250 mg BID PO ; Start 05/15/17 at 21:00; Stop 05/16/17 at 08:39; Status DC Divalproex Sodium (Depakote Sprinkles) 250 mg HS PO Last administered on at 20:07; Start 05/15/17 at 21:00; Stop 05/16/17 at 08:38; Status DC Divalproex Sodium (Depakote Sprinkles) 125 mg BID@1300,1700 PO Last administered on 05/18/17at 16:53; Start 05/16/17 at 13:00 Divalproex Sodium (Depakote Sprinkles) 250 mg 1X ONCE PO Last administered on 05/15/17at 23:58; Start 05/15/17 at 23:30; Stop 05/15/17 at 23:31; Status DC Divalproex Sodium (Depakote Sprinkles) 250 mg BID PO Last administered on at 09:16; Start 05/16/17 at 09:00 Amitriptyline HCl (Elavil) 50 mg QHS PO ; Start 05/17/17 at 21:00 Active Scripts Active Reported Olanzapine 5 Mg Tablet 2.5 Mg PO HS Zoloft (Sertraline Hcl) 50 Mg Tablet 50 Mg PO DAILY Colace (Docusate Sodium) 100 Mg Capsule 100 Mg PO BID Aricept (Donepezil Hcl) 10 Mg Tablet 10 Mg PO QHS Calcium 500 + Vit D 400 Tablet (Calcium Carbonate/Vitamin D3) 1 Each Tablet 1 Each PO BID Namzaric 28 mg-10 mg Capsule (Memantine HCl/Donepezil HCl) 1 Each Cap.spr.24 1 Each PO QHS I have reviewed the current psychotropics carefully including drug interactions. Risk benefit ratio favors no change other than as noted in my dictated progress note. Diagnosis: Problems: (1) Anxiety disorder (2) Dementia in Alzheimer's disease with delusions (3) Dementia in Alzheimer's disease with depression (4) Dementia, vascular, with delusions (5) Dementia, vascular, with depression (6) Impulse control disorder JAKE SHIN MD May 18, 2017 20:06
--- NOTE | 2017-05-19 00:20 | PN ---
DATE: 05/16/2017 PSYCHIATRIC PROGRESS NOTE HISTORY OF PRESENT ILLNESS: This is a late entry 05/16/2017 covers elements not covered in my initial note 05/16/2017. I met with the patient on the evening of 05/16/2017. The patient remains confused, agitated with cares, resistive, very disorganized, compliant with meds crushed in pudding, slept well. REVIEW OF SYSTEMS: No CV, , pulmonary, eye, ENT system symptoms on review. Reliability poor. MENTAL STATUS EXAM: Oriented to himself. Insight, judgment, recent and remote memory, attention, concentration, fund of knowledge poor, consistent with his diagnosis mentioned in my initial note. IMPRESSION: Major neurocognitive disorder, Alzheimer, vascular with depression, delusion, behavioral disturbance. PLAN: Continue psychotropics mentioned in my initial note, may need to increase Seroquel if agitation persists. MAN Tiago SHIN MD DR: SHERON/thuan JOB#: [id number] / [id number]
--- NOTE | 2017-05-19 00:34 | PN ---
DATE: 05/17/2017 PSYCHIATRIC PROGRESS NOTE This is a late entry for 05/17/2017, covers elements not covered in my initial note of 05/17/2017. SUBJECTIVE: I met with the patient the evening of 05/17/2017 in his room, slept just 1-1/4 hours previous evening, slept most of the day, aggressive during showers, threatened staff after shower. REVIEW OF SYSTEMS: No CV, , pulmonary, eye, ENT system symptoms on review. Reliability poor. MENTAL STATUS EXAM: Oriented to himself. Insight, judgment, recent and remote memory, attention, concentration, fund of knowledge poor, consistent with his diagnosis mentioned in my initial note. IMPRESSION: Major neurocognitive disorder, Alzheimer, vascular with depression, delusion, behavioral disturbance. PLAN: Increase amitriptyline to 50 mg p.o. at bedtime to help with insomnia and anxiety. Continue rest unchanged per initial note. JAKE SHIN MD DR: SHERON/thuan JOB#: [id number] / [id number]
[2017-05-19 06:15] VITALS: BP 119/78
[2017-05-19] MEDS: DIVALPROEX 125 MG CAP.SPRINK PO SCH ×4 (08:38→16:49)
[2017-05-19] MEDS: CALCIUM CARB/VIT D3 500/200 TABLET PO SCH ×2 (08:38→16:49)
[2017-05-19] MEDS: DOCUSATE SODIUM 100 MG CAPSULE PO SCH ×2 (08:38→20:30)
[2017-05-19] MEDS: QUEtiapine 25 MG TABLET. PO SCH ×5 (08:39→20:30)
[2017-05-19] MEDS: SERTRALINE 50 MG TABLET. PO SCH (08:39)
[2017-05-19] MEDS ORDERED: MAGNESIUM CITRATE 296 ML SOLUTION. PO PRN (11:15)
[2017-05-19] MEDS ORDERED: MAGNESIUM CITRATE 296 ML SOLUTION. PO ONE (11:30)
[2017-05-19] MEDS ORDERED: BISACODYL 10 MG SUPP.RECT PR ONE (15:30)
[2017-05-19] MEDS: IV DEXTROSE 5% 1,000 ML IV SCH (15:30)
[2017-05-19] MEDS ORDERED: BISACODYL 10 MG SUPP.RECT PR PRN (15:30)
[2017-05-19 16:16] VITALS: BP 141/74
--- NOTE | 2017-05-19 19:58 | PDOC ---
Exam Note: Yifan Note: Please also refer to the separate dictated note~for this date of service dictated separately.~Patient seen individually. Discussed the patient with Nursing staff reviewed the chart.~Reviewed interim history and current functioning. Reviewed vital signs,~Labs/ Radiology~and current medications noted below. Continue current treatment with the changes noted in the dictated addendum note Assessment: Vital Signs: Vital Signs Date Time Temp Pulse Resp B/P (MAP) Pulse Ox O2 Delivery O2 Flow Rate FiO2 05/19/17 16:16 98.1 80 16 141/74 (96) Room Air 95.0 05/18/17 16:02 95 I&O Intake and Output 05/19/17 07:00 Intake Total 60 ml Balance 60 ml Intake Oral 60 ml Current Medications: Meds: Current Medications Acetaminophen (Tylenol) 650 mg PRN Q6HRS PRN PO PAIN / TEMP Last administered on 05/18/17at 20:00; Start 04/30/17 at 10:15 Multi-Ingredient Ointment (Analgesic [place]) 1 asha PRN QID PRN TP MUSCLE PAIN; Start 04/30/17 at 10:15 Al Hydroxide/Mg Hydroxide (Mylanta Plus Xs) 15 ml PRN AFTMEALHC PRN PO DYSPEPSIA; Start 04/30/17 at 10:15 Magnesium Hydroxide (Milk Of Magnesia) 2,400 mg PRN QHS PRN PO CONSTIPATION Last administered on 05/17/17at 17:10; Start 04/30/17 at 10:15 Nicotine (Nicoderm Cq 21mg) 1 patch DAILY TD Last administered on 05/12/17at 10: 21; Start 04/30/17 at 11:00; Stop 05/12/17 at 16:01; Status DC Olanzapine (ZyPREXA ZYDIS) 5 mg PRN Q2HR PRN PO ANXIETY / AGITATION Last administered on 05/18/17at 11:27; Start 04/30/17 at 11:45 Docusate Sodium (Colace) 100 mg BID PO Last administered on 05/19/17at 08:38; Start 04/30/17 at 21:00 Donepezil HCl (Aricept) 10 mg QHS PO ; Start 04/30/17 at 21:00; Stop 04/30/17 at 21:00; Status DC Sertraline HCl (Zoloft) 50 mg DAILY PO Last administered on 05/04/17 08:28; Start 05/01/17 at 09:00; Stop 05/05/17 at 19:11; Status DC Calcium/Vitamin D (Oscal D 500mg/ 200uts) 1 tab BIDWMEALS PO Last administered on 05/19/17at 16:49; Start 04/30/17 at 17:00 Memantine (Namenda) 10 mg BID PO Last administered on 05/01/17at 09:31; Start 04/30/17 at 21:00; Stop 05/01/17 at 18:16; Status DC Donepezil HCl (Aricept) 10 mg BID PO Last administered on 05/01/17 09:31; Start 04/30/17 at 21:00; Stop 05/01/17 at 18:16; Status DC Quetiapine Fumarate (SEROquel) 12.5 mg BID92 PO Last administered on 05/01/17at 13:56; Start 05/01/17 at 09:00; Stop 05/01/17 at 18:16; Status DC Olanzapine (ZyPREXA) 2.5 mg HS PO Last administered on 05/18/17at 20:00; Start 05/01/17 at 21:00 Quetiapine Fumarate (SEROquel) 12.5 mg QID PO Last administered on 05/04/17at 17: 02; Start 05/01/17 at 21:00; Stop 05/04/17 at 18:04; Status DC Mirtazapine (Remeron) 7.5 mg QHS PO Last administered on 05/03/17at 19:41; Start 05/03/17 at 21:00; Stop 05/04/17 at 18:04; Status DC Trazodone HCl (Desyrel) 50 mg PRN QHS PRN PO INSOMNIA Last administered on at 20:20; Start 05/03/17 at 18:15; Stop 05/05/17 at 19:11; Status DC Mirtazapine (Remeron) 15 mg QHS PO Last administered on 05/13/17at 20:29; Start 05/04/17 at 21:00; Stop 05/14/17 at 15:10; Status DC Quetiapine Fumarate (SEROquel) 12.5 mg BID@1300,2100 PO Last administered on at 12:22; Start 05/04/17 at 21:00; Stop 05/13/17 at 17:49; Status DC Quetiapine Fumarate (SEROquel) 25 mg BID@0900,1700 PO Last administered on 05/19at 16:49; Start 05/05/17 at 09:00 Sertraline HCl (Zoloft) 75 mg DAILY PO Last administered on 05/19/17at 08:39; Start 05/06/17 at 09:00 Trazodone HCl (Desyrel) 100 mg PRN QHS PRN PO INSOMNIA/MAY REPEAT X1 Last administered on 05/06/17at 23:22; Start 05/05/17 at 19:30; Stop 05/10/17 at 18:29 ; Status DC Melatonin 3 mg QHS PO Last administered on 05/18/17at 20:01; Start 05/06/17 at 21:00 Divalproex Sodium (Depakote Sprinkles) 125 mg BID@0900,1400 PO Last administered on 05/10/17at 13:57; Start 05/07/17 at 14:00; Stop 05/10/17 at 18:29 ; Status DC Divalproex Sodium (Depakote Sprinkles) 125 mg QID PO Last administered on at 17:21; Start 05/10/17 at 21:00; Stop 05/15/17 at 19:22; Status DC Trazodone HCl (Desyrel) 100 mg HS PO ; Start 05/10/17 at 21:00; Status Cancel Trazodone HCl (Desyrel) 100 mg PRN QHS PRN PO SLEEP; Start 05/10/17 at 18:30; Status Cancel Trazodone HCl (Desyrel) 100 mg HS PO Last administered on 05/18/17at 20:00; Start 05/10/17 at 21:00 Trazodone HCl (Desyrel) 100 mg PRN QHS PRN PO SLEEP Last administered on at 23:09; Start 05/10/17 at 19:00 Quetiapine Fumarate (SEROquel) 25 mg BID@1300,2100 PO Last administered on 05/18at 20:02; Start 05/13/17 at 21:00 Amitriptyline HCl (Elavil) 25 mg QHS PO Last administered on 05/16/17at 19:55; Start 05/14/17 at 21:00; Stop 05/17/17 at 19:21; Status DC Divalproex Sodium (Depakote Sprinkles) 250 mg BID PO ; Start 05/15/17 at 21:00; Stop 05/16/17 at 08:39; Status DC Divalproex Sodium (Depakote Sprinkles) 250 mg HS PO Last administered on at 20:07; Start 05/15/17 at 21:00; Stop 05/16/17 at 08:38; Status DC Divalproex Sodium (Depakote Sprinkles) 125 mg BID@1300,1700 PO Last administered on 05/19/17at 16:49; Start 05/16/17 at 13:00; Stop 05/19/17 at 18:28 ; Status DC Divalproex Sodium (Depakote Sprinkles) 250 mg 1X ONCE PO Last administered on 05/15/17at 23:58; Start 05/15/17 at 23:30; Stop 05/15/17 at 23:31; Status DC Divalproex Sodium (Depakote Sprinkles) 250 mg BID PO Last administered on at 08:38; Start 05/16/17 at 09:00; Stop 05/19/17 at 18:28; Status DC Amitriptyline HCl (Elavil) 50 mg QHS PO Last administered on 05/18/17at 20:00; Start 05/17/17 at 21:00 Magnesium Citrate (Citroma) 296 ml 1X ONCE PO Last administered on 05/19/17at 12:03; Start 05/19/17 at 11:30; Stop 05/19/17 at 11:31; Status DC Magnesium Citrate (Citroma) 296 ml PRN 1X PRN PO CONSTIPATION; Start 05/19/17 at 11:15 Dextrose 1,000 ml @ 100 mls/hr Q10H IV ; Start 05/19/17 at 15:30 Bisacodyl (Dulcolax Supp) 10 mg 1X ONCE MA ; Start 05/19/17 at 15:30; Stop at 15:31; Status DC Bisacodyl (Dulcolax Supp) 10 mg PRN DAILY PRN MA CONSTIPATION; Start 05/19/17 at 15:30 Active Scripts Active Reported Olanzapine 5 Mg Tablet 2.5 Mg PO HS Zoloft (Sertraline Hcl) 50 Mg Tablet 50 Mg PO DAILY Colace (Docusate Sodium) 100 Mg Capsule 100 Mg PO BID Aricept (Donepezil Hcl) 10 Mg Tablet 10 Mg PO QHS Calcium 500 + Vit D 400 Tablet (Calcium Carbonate/Vitamin D3) 1 Each Tablet 1 Each PO BID Namzaric 28 mg-10 mg Capsule (Memantine HCl/Donepezil HCl) 1 Each Cap.spr.24 1 Each PO QHS I have reviewed the current psychotropics carefully including drug interactions. Risk benefit ratio favors no change other than as noted in my dictated progress note. Diagnosis: Problems: (1) Anxiety disorder (2) Dementia in Alzheimer's disease with delusions (3) Dementia in Alzheimer's disease with depression (4) Dementia, vascular, with delusions (5) Dementia, vascular, with depression (6) Impulse control disorder JAKE SHIN MD May 19, 2017 19:58
[2017-05-19] MEDS: OLANZapine 2.5 MG TABLET PO SCH (20:29)
[2017-05-19] MEDS: AMITRIPTYLINE HCL 25 MG TABLET PO SCH (20:29)
[2017-05-19] MEDS: MELATONIN 3 MG TABLET PO SCH (20:30)
[2017-05-19] MEDS: traZODone 100 MG TABLET. PO SCH (20:30)
--- NOTE | 2017-05-20 00:50 | PN ---
DATE: 05/18/2017 This is a late entry 05/18/2017 covers elements not covered in my initial note 05/18/2017. I met with the patient evening of 05/18/2017. The patient slept 9 hours previous evening. Oral intake is poor. He is dehydrated. We will defer to Dr. Tellez. Nursing staff will push fluids. REVIEW OF SYSTEMS: The patient not forthcoming due to his dementia. No CV, , pulmonary, eye, ENT system symptoms on review. MENTAL STATUS EXAM: Oriented to himself. Insight, judgment, recent and remote memory, attention, concentration, fund of knowledge poor, consistent with his diagnosis mentioned in my initial note. IMPRESSION: Major neurocognitive disorder, Alzheimer, vascular with depression, delusion, behavioral disturbance. Rest unchanged. PLAN: Continue current psychotropics. Push fluids. Valproic acid level subtherapeutic at 27, but clinically adequate for now. MAN Tiago SHIN MD DR: SHERON/thuan JOB#: [id number] / [id number]
[2017-05-20] MEDS: IV DEXTROSE 5% 1,000 ML IV SCH ×2 (01:30→11:30)
[2017-05-20 06:24] VITALS: BP 123/77
--- NOTE | 2017-05-20 06:51 | RAD ---
VALERIA, 05/19/2017: History: Constipation, abdominal pain There is a moderate amount stool in the rectosigmoid and descending colon. The abdominal gas pattern is otherwise unremarkable. There is no evidence of organomegaly. A vascular stent is projected over the right iliac region. Moderate spurring is present in the spine. IMPRESSION: Increased stool in the distal colon.
[2017-05-20 07:59] LABS: BASO # 0.1 x10^3/uL (0.0-0.2); BASO % 1 % (0-3); EOS # 0.2 x10^3/uL (0.0-0.7); EOS % 2 % (0-3); HEMATOCRIT 40.3 % (39.0-53.0); HEMOGLOBIN 13.3 g/dL (13.0-17.5); LYMPH # 2.4 x10^3/uL (1.0-4.8); LYMPH % 29 % (24-48); MEAN CORPUSCULAR HEMOGLOBIN 30 pg (25-35); MEAN CORPUSCULAR HGB CONC 33 g/dL (31-37); MEAN CORPUSCULAR VOLUME 92 fL (79-100); MONO % 12 % (0-9); NEUT # 4.7 x10^3uL (1.8-7.7); NEUT % 56 % (31-73); PLATELET COUNT 94 x10^3/uL (140-400); RED BLOOD COUNT 4.38 x10^6/uL (4.30-5.70); RED CELL DISTRIBUTION WIDTH 15.4 % (11.5-14.5); WHITE BLOOD COUNT 8.4 x10^3/uL (4.0-11.0)
[2017-05-20 08:14] LABS: ALBUMIN 3.8 g/dL (3.4-5.0); ALBUMIN/GLOBULIN RATIO 0.8 (1.0-1.7); CALCIUM 10.2 mg/dL (8.5-10.1); CREATININE 1.4 mg/dL (0.7-1.3); MAGNESIUM 2.8 mg/dL (1.8-2.4); POTASSIUM 4.6 mmol/L (3.5-5.1); TOTAL BILIRUBIN 0.3 mg/dL (0.2-1.0); TOTAL PROTEIN 8.6 g/dL (6.4-8.2)
[2017-05-20] MEDS: CALCIUM CARB/VIT D3 500/200 TABLET PO SCH ×2 (08:59→17:00)
[2017-05-20] MEDS: DOCUSATE SODIUM 100 MG CAPSULE PO SCH (08:59)
[2017-05-20] MEDS: SERTRALINE 50 MG TABLET. PO SCH (08:59)
[2017-05-20] MEDS: QUEtiapine 25 MG TABLET. PO SCH ×3 (08:59→17:00)
[2017-05-20 15:51] VITALS: BP 123/61
[2017-05-20 19:45] VITALS: BP 151/73
--- NOTE | 2017-05-20 20:03 | PDOC ---
Exam Note: Yifan Note: Please also refer to the separate dictated note~for this date of service dictated separately.~Patient seen individually. Discussed the patient with Nursing staff reviewed the chart.~Reviewed interim history and current functioning. Reviewed vital signs,~Labs/ Radiology~and current medications noted below. Continue current treatment with the changes noted in the dictated addendum note Assessment: Vital Signs: Vital Signs Date Time Temp Pulse Resp B/P (MAP) Pulse Ox O2 Delivery O2 Flow Rate FiO2 05/20/17 19:51 97.3 05/20/17 19:45 102 16 151/73 (99) 96 05/19/17 16:16 Room Air 95.0 I&O Intake and Output 05/20/17 07:00 Intake Total 560 ml Balance 560 ml Intake Oral 560 ml Labs: Laboratory Tests Test 05/20/17 07:39 White Blood Count 8.4 x10^3/uL (4.0-11.0) # Red Blood Count 4.38 x10^6/uL (4.30-5.70) Hemoglobin 13.3 g/dL (13.0-17.5) Hematocrit 40.3 % (39.0-53.0) Mean Corpuscular Volume 92 fL (79-100) Mean Corpuscular Hemoglobin 30 pg (25-35) Mean Corpuscular Hemoglobin Concent 33 g/dL (31-37) Red Cell Distribution Width 15.4 % (11.5-14.5) H Platelet Count 94 x10^3/uL (140-400) L Neutrophils (%) (Auto) 56 % (31-73) Lymphocytes (%) (Auto) 29 % (24-48) Monocytes (%) (Auto) 12 % (0-9) H Eosinophils (%) (Auto) 2 % (0-3) Basophils (%) (Auto) 1 % (0-3) Neutrophils # (Auto) 4.7 x10^3uL (1.8-7.7) Lymphocytes # (Auto) 2.4 x10^3/uL (1.0-4.8) Monocytes # (Auto) 1.0 x10^3/uL (0.0-1.1) Eosinophils # (Auto) 0.2 x10^3/uL (0.0-0.7) Basophils # (Auto) 0.1 x10^3/uL (0.0-0.2) Sodium Level 154 mmol/L (136-145) H Potassium Level 4.6 mmol/L (3.5-5.1) Chloride Level 113 mmol/L (98-107) H Carbon Dioxide Level 31 mmol/L (21-32) Anion Gap 10 (6-14) Blood Urea Nitrogen 44 mg/dL (8-26) H Creatinine 1.4 mg/dL (0.7-1.3) H Estimated GFR (Cockcroft-Gault) 50.0 BUN/Creatinine Ratio 31 (6-20) H Glucose Level 119 mg/dL (70-99) H Calcium Level 10.2 mg/dL (8.5-10.1) H Magnesium Level 2.8 mg/dL (1.8-2.4) H Total Bilirubin 0.3 mg/dL (0.2-1.0) Aspartate Amino Transferase (AST) 35 U/L (15-37) Alanine Aminotransferase (ALT) 38 U/L (16-63) Alkaline Phosphatase 115 U/L (46-116) Total Protein 8.6 g/dL (6.4-8.2) H Albumin 3.8 g/dL (3.4-5.0) Albumin/Globulin Ratio 0.8 (1.0-1.7) L Current Medications: Meds: Current Medications Acetaminophen (Tylenol) 650 mg PRN Q6HRS PRN PO PAIN / TEMP Last administered on 05/18/17at 20:00; Start 04/30/17 at 10:15 Multi-Ingredient Ointment (Analgesic [place]) 1 asha PRN QID PRN TP MUSCLE PAIN; Start 04/30/17 at 10:15 Al Hydroxide/Mg Hydroxide (Mylanta Plus Xs) 15 ml PRN AFTMEALHC PRN PO DYSPEPSIA; Start 04/30/17 at 10:15 Magnesium Hydroxide (Milk Of Magnesia) 2,400 mg PRN QHS PRN PO CONSTIPATION Last administered on 05/17/17at 17:10; Start 04/30/17 at 10:15 Nicotine (Nicoderm Cq 21mg) 1 patch DAILY TD Last administered on 05/12/17at 10: 21; Start 04/30/17 at 11:00; Stop 05/12/17 at 16:01; Status DC Olanzapine (ZyPREXA ZYDIS) 5 mg PRN Q2HR PRN PO ANXIETY / AGITATION Last administered on 05/18/17at 11:27; Start 04/30/17 at 11:45 Docusate Sodium (Colace) 100 mg BID PO Last administered on 05/20/17at 08:59; Start 04/30/17 at 21:00 Donepezil HCl (Aricept) 10 mg QHS PO ; Start 04/30/17 at 21:00; Stop 04/30/17 at 21:00; Status DC Sertraline HCl (Zoloft) 50 mg DAILY PO Last administered on 05/04/17at 08:28; Start 05/01/17 at 09:00; Stop 05/05/17 at 19:11; Status DC Calcium/Vitamin D (Oscal D 500mg/ 200uts) 1 tab BIDWMEALS PO Last administered on 05/20/17at 08:59; Start 04/30/17 at 17:00 Memantine (Namenda) 10 mg BID PO Last administered on 05/01/17at 09:31; Start 04/30/17 at 21:00; Stop 05/01/17 at 18:16; Status DC Donepezil HCl (Aricept) 10 mg BID PO Last administered on 05/01/17at 09:31; Start 04/30/17 at 21:00; Stop 05/01/17 at 18:16; Status DC Quetiapine Fumarate (SEROquel) 12.5 mg BID92 PO Last administered on 05/01/17at 13:56; Start 05/01/17 at 09:00; Stop 05/01/17 at 18:16; Status DC Olanzapine (ZyPREXA) 2.5 mg HS PO Last administered on 05/19/17at 20:29; Start 05/01/17 at 21:00 Quetiapine Fumarate (SEROquel) 12.5 mg QID PO Last administered on 05/04/17at 17: 02; Start 05/01/17 at 21:00; Stop 05/04/17 at 18:04; Status DC Mirtazapine (Remeron) 7.5 mg QHS PO Last administered on 05/03/17at 19:41; Start 05/03/17 at 21:00; Stop 05/04/17 at 18:04; Status DC Trazodone HCl (Desyrel) 50 mg PRN QHS PRN PO INSOMNIA Last administered on at 20:20; Start 05/03/17 at 18:15; Stop 05/05/17 at 19:11; Status DC Mirtazapine (Remeron) 15 mg QHS PO Last administered on 05/13/17at 20:29; Start 05/04/17 at 21:00; Stop 05/14/17 at 15:10; Status DC Quetiapine Fumarate (SEROquel) 12.5 mg BID@1300,2100 PO Last administered on at 12:22; Start 05/04/17 at 21:00; Stop 05/13/17 at 17:49; Status DC Quetiapine Fumarate (SEROquel) 25 mg BID@0900,1700 PO Last administered on 05/20at 08:59; Start 05/05/17 at 09:00 Sertraline HCl (Zoloft) 75 mg DAILY PO Last administered on 05/20/17at 08:59; Start 05/06/17 at 09:00 Trazodone HCl (Desyrel) 100 mg PRN QHS PRN PO INSOMNIA/MAY REPEAT X1 Last administered on 05/06/17at 23:22; Start 05/05/17 at 19:30; Stop 05/10/17 at 18:29 ; Status DC Melatonin 3 mg QHS PO Last administered on 05/19/17at 20:30; Start 05/06/17 at 21:00 Divalproex Sodium (Depakote Sprinkles) 125 mg BID@0900,1400 PO Last administered on 05/10/17at 13:57; Start 05/07/17 at 14:00; Stop 05/10/17 at 18:29 ; Status DC Divalproex Sodium (Depakote Sprinkles) 125 mg QID PO Last administered on at 17:21; Start 05/10/17 at 21:00; Stop 05/15/17 at 19:22; Status DC Trazodone HCl (Desyrel) 100 mg HS PO ; Start 05/10/17 at 21:00; Status Cancel Trazodone HCl (Desyrel) 100 mg PRN QHS PRN PO SLEEP; Start 05/10/17 at 18:30; Status Cancel Trazodone HCl (Desyrel) 100 mg HS PO Last administered on 05/19/17at 20:30; Start 05/10/17 at 21:00 Trazodone HCl (Desyrel) 100 mg PRN QHS PRN PO SLEEP Last administered on at 23:09; Start 05/10/17 at 19:00 Quetiapine Fumarate (SEROquel) 25 mg BID@1300,2100 PO Last administered on 05/20at 13:42; Start 05/13/17 at 21:00 Amitriptyline HCl (Elavil) 25 mg QHS PO Last administered on 05/16/17at 19:55; Start 05/14/17 at 21:00; Stop 05/17/17 at 19:21; Status DC Divalproex Sodium (Depakote Sprinkles) 250 mg BID PO ; Start 05/15/17 at 21:00; Stop 05/16/17 at 08:39; Status DC Divalproex Sodium (Depakote Sprinkles) 250 mg HS PO Last administered on at 20:07; Start 05/15/17 at 21:00; Stop 05/16/17 at 08:38; Status DC Divalproex Sodium (Depakote Sprinkles) 125 mg BID@1300,1700 PO Last administered on 05/19/17at 16:49; Start 05/16/17 at 13:00; Stop 05/19/17 at 18:28 ; Status DC Divalproex Sodium (Depakote Sprinkles) 250 mg 1X ONCE PO Last administered on 05/15/17at 23:58; Start 05/15/17 at 23:30; Stop 05/15/17 at 23:31; Status DC Divalproex Sodium (Depakote Sprinkles) 250 mg BID PO Last administered on at 08:38; Start 05/16/17 at 09:00; Stop 05/19/17 at 18:28; Status DC Amitriptyline HCl (Elavil) 50 mg QHS PO Last administered on 05/19/17at 20:29; Start 05/17/17 at 21:00 Magnesium Citrate (Citroma) 296 ml 1X ONCE PO Last administered on 05/19/17at 12:03; Start 05/19/17 at 11:30; Stop 05/19/17 at 11:31; Status DC Magnesium Citrate (Citroma) 296 ml PRN 1X PRN PO CONSTIPATION; Start 05/19/17 at 11:15 Dextrose 1,000 ml @ 100 mls/hr Q10H IV ; Start 05/19/17 at 15:30; Stop at 15:10; Status DC Bisacodyl (Dulcolax Supp) 10 mg 1X ONCE NE ; Start 05/19/17 at 15:30; Stop at 15:31; Status DC Bisacodyl (Dulcolax Supp) 10 mg PRN DAILY PRN NE CONSTIPATION; Start 05/19/17 at 15:30 Active Scripts Active Reported Olanzapine 5 Mg Tablet 2.5 Mg PO HS Zoloft (Sertraline Hcl) 50 Mg Tablet 50 Mg PO DAILY Colace (Docusate Sodium) 100 Mg Capsule 100 Mg PO BID Aricept (Donepezil Hcl) 10 Mg Tablet 10 Mg PO QHS Calcium 500 + Vit D 400 Tablet (Calcium Carbonate/Vitamin D3) 1 Each Tablet 1 Each PO BID Namzaric 28 mg-10 mg Capsule (Memantine HCl/Donepezil HCl) 1 Each Cap.spr.24 1 Each PO QHS I have reviewed the current psychotropics carefully including drug interactions. Risk benefit ratio favors no change other than as noted in my dictated progress note. Diagnosis: Problems: (1) Anxiety disorder (2) Dementia in Alzheimer's disease with delusions (3) Dementia in Alzheimer's disease with depression (4) Dementia, vascular, with delusions (5) Dementia, vascular, with depression (6) Impulse control disorder JAKE SHIN MD May 20, 2017 20:03
[2017-05-20] MEDS ORDERED: ACET325T9 PO (20:08)
[2017-05-20] MEDS ORDERED: BISA10SU55 RC (20:09)
[2017-05-20] MEDS ORDERED: AMIT50TA PO (20:09)
[2017-05-20] MEDS ORDERED: MAG30ORA PO (20:10)
[2017-05-20] MEDS ORDERED: MAGN296S9 PO (20:11)
[2017-05-20] MEDS ORDERED: MAGN2400 PO (20:12)
[2017-05-20] MEDS ORDERED: MELA3TAB2 PO (20:14)
[2017-05-20] MEDS ORDERED: METH29OI TP (20:16)
[2017-05-20] MEDS ORDERED: OLAN5TAB9 PO (20:17)
[2017-05-20] MEDS ORDERED: QUET25TA5 PO (20:19)
[2017-05-20] MEDS ORDERED: TRAZ-90 PO ×2 (20:21→20:22)
--- NOTE | 2017-05-21 01:54 | PN ---
DATE: 05/19/2017 PSYCHIATRIC PROGRESS NOTE This late entry 05/19/2017 covers elements not covered in my initial note of 05/19/2017. I met with the patient in the evening of 05/19/2017. The patient has had a very poor appetite and he is on DNR status, which we have initiated in the hospital since this is what had been opted outside the hospital as well. He has had no bowel movement since the 14, nursing staff are attempting to give him a magnesium citrate, but his oral intake is very limited. I will defer medical management to Dr. Tellez. He is quite withdrawn, isolative, appears to be deteriorating medically. REVIEW OF SYSTEMS: No CV, , pulmonary, eye, ENT system symptoms on review. Reliability poor. MENTAL STATUS EXAM: Oriented to himself. Insight, judgment, recent, remote memory, attention, concentration, fund of knowledge poor, consistent with his diagnosis mentioned in my initial note. IMPRESSION: Major neurocognitive disorder, Alzheimer, vascular with depression, delusion, behavioral disturbance, poor oral intake, dehydration, failure to thrive. PLAN: Stop the Depakote. Maintain rest of the psychotropics. Defer medical management to Dr. Tellez. JAKE SHIN MD DR: SHERON/thuan JOB#: [id number] / [id number]
--- NOTE | 2017-05-21 18:46 | DS ---
DATE OF DISCHARGE: 05/20/2017 DISCHARGE SUMMARY/PSYCHIATRIC PROGRESS NOTE This is a late entry, date of service 05/20/2017, covers elements not covered in my initial note 05/20/2017. REASON FOR ADMISSION: Please refer to the admission history for details. Briefly, the patient is a 71-year-old male referred to us from [facility] Emergency Room where he presented from [facility], where he just spent few days. He was extremely confused, combative with staff at [facility] and aggressive in the ER. He was psychotic, extremely demented with marked mood lability. Behaviors were deemed dangerous, needing inpatient psychiatric stabilization. SIGNIFICANT FINDINGS AND CLINICAL COURSE: Following admission, the patient was seen daily individually by myself, followed medically per Dr. Tellez/Dr Jimenez. He remained quite combative, labile, delusional. Adjustments were made in the psychotropics and he was calmer on a combination of Zoloft 75 mg a day, Seroquel 25 mg 4 times a day, trazodone 100 mg at bedtime, august repeat x 1, Zyprexa p.r.n., melatonin 3 mg at bedtime, amitriptyline 50 mg at bedtime for his insomnia since he had failed interventions for insomnia with multiple other psychotropics. From psychiatric agitation, aggression standpoint, he was doing better, but progressively refusing to eat, unable to sit still long enough to have any significant oral intake and he was getting dehydrated. Late at night on 05/20/2017, he was medically more compromised. Sodium was elevated. He was transferred to the ICU per Dr. Tellez for medical stabilization with possible hospice care as an option. REVIEW OF SYSTEMS: Prior to discharge no CV, , pulmonary, eye, ENT system symptoms on review. Reliability poor. MENTAL STATUS EXAM: Oriented to himself. Insight, judgment, recent and remote memory, attention, concentration, fund of knowledge poor, consistent with his diagnoses. FINAL DIAGNOSES: Major neurocognitive disorder, Alzheimer, vascular with depression, delusion, behavioral disturbance, dehydration; anxiety disorder, unspecified; impulse control disorder, unspecified. PLAN: Continue psychotropics mentioned in my initial note and MRAD. Psychiatric and medical followup in the ICU per Dr. Tellez. JAKE SHIN MD DR: SHERON/thuan JOB#: [id number] / [id number]
[2017-05-22] MEDS ORDERED: MORP10SO PO (16:23)
[2017-05-22] MEDS ORDERED: LORA2ORA2 SL (16:23)
== END 2017-05-20 20:37 | disposition short-term general hospital (02) | DRG 884 ==
LOC: GEROPSY 09:17
PROVIDERS: ADMIT Psychiatry & Neurology Psychiatry; ATTEND Psychiatry & Neurology Psychiatry
DX: F01.51 Vascular dementia, unspecified severity, with behavioral disturbance (principal); D69.6 Thrombocytopenia, unspecified; G30.9 Alzheimer's disease, unspecified; E86.0 Dehydration; F22 Delusional disorders; F02.81 Dementia in other diseases classified elsewhere, unspecified severity, with behavioral disturbance; E78.5 Hyperlipidemia, unspecified; F32.9 Major depressive disorder, single episode, unspecified; F41.9 Anxiety disorder, unspecified; F63.9 Impulse disorder, unspecified; I73.9 Peripheral vascular disease, unspecified; M19.90 Unspecified osteoarthritis, unspecified site; R62.7 Adult failure to thrive; Z79.899 Other long term (current) drug therapy; Z91.14 Patient's other noncompliance with medication regimen; Z60.2 Problems related to living alone; N28.9 Disorder of kidney and ureter, unspecified; G47.00 Insomnia, unspecified; Z66 Do not resuscitate
CPT/HCPCS: 36415; 74018; 80053; 80061; 80164; 82306; 82607; 83036; 83540; 83550; 83735; 84436; 84443; 84480; 85025; 86593; 99407

== ENCOUNTER 2017-05-20 20:10 | Inpatient (IN) | payer MEDICARE, OTHER ==
[~2017-05-20] VITALS: Ht 180.3 cm; Wt 71.3 kg
[~2017-05-20 20:10] MED LIST: ACET325T9 PO; AMIT50TA PO; BISA10SU55 RC; CALC-30 PO; DOCU-109 PO; DONE10TA61 PO; MAG30ORA PO; MEMA1CAP3 PO; OLAN5TAB5 PO; OLAN5TAB9 PO; SERT50TA PO
[2017-05-20] MEDS ORDERED: MAGN296S9 PO (20:11)
[2017-05-20] MEDS ORDERED: MAGN2400 PO (20:12)
[2017-05-20] MEDS ORDERED: MELA3TAB2 PO (20:14)
[2017-05-20] MEDS ORDERED: METH29OI TP (20:16)
[2017-05-20] MEDS ORDERED: OLAN5TAB9 PO (20:17)
[2017-05-20] MEDS ORDERED: QUET25TA5 PO (20:19)
[2017-05-20] MEDS ORDERED: TRAZ-90 PO ×2 (20:21→20:22)
[2017-05-20 20:30] VITALS: BP 151/73
--- NOTE | 2017-05-20 21:51 | NUR ---
Admit Note: The patient, BEATRIZ BRICENO, 71 y/o, M admitted by ALEKSANDER FROST DO, was given written information regarding hospital policies, unit procedures and contact persons. Pt arrived via w/c from [facility] accompanied by [facility] Staff. Pt alert and responds to name only, difficulty to direct.Assisted to bed and positioned for max comfort, Pt noted with combative behaviors with provision of cares, however, quickly calms and returns to sleep once cares are completed. Valuables were checked and left in room with pt.
--- NOTE | 2017-05-20 23:45 | NUR ---
Nursing Note: At 2315 Nrkai heard a crash from pt room, Upon entrance nurse noted pt to be laying on his side on the floor beside the bed with the appearance of Seizure like activity, Pt remained on side until rigidity decreased and Pt began breathing deep sonorous respirations. Nurses assisted pt back into bed, positioned on side for max comfort. Pt very confused and disoriented attempting to sit up in the bed, difficult to redirect. Pt c/o being thirsty, small drink of water with PO Ativan given. IV Restarted with 20G to the L hand on the 2nd attempt. Call placed to Dr. Tellez informed of fall and s/s of seizure like activity. Orders received as follows: Ativan 1-2mg IV PRN Q1H for Seizures, Keppra 500mg IV x 1 now, consult Dr. Loyd in am, CT Head and Shange Oxygen to Max. Orders processed at this time. Addendum: 05/21/17 at 0159 by NURIA HOLLINGSWORTH RN Incorrect Pt Chart
[2017-05-21] MEDS: LORazepam INTENSOL 2 MG/ML BOTTLE SL PRN ×2 (01:03→07:43)
[2017-05-21] MEDS: MORPHINE SULFATE 10 MG/5 ML ORAL SOLUTION. PO PRN (08:08)
--- NOTE | 2017-05-21 08:10 | NUR ---
Pt has been increasingly agitated today and unable to be reorientated. Pt is walking around room, walking down hallways attempting to open fire escape door. Assisted pt to the bathroom multiple times, no success. Pt is sitting down in room at this moment with the ASSISTANT EDUCATION DIRECTOR attempting to eat breakfast, with no success. PRN medications administered to pt, see eMAR.
--- NOTE | 2017-05-21 11:17 | NUR ---
TOMASZ has been in contact w/Chloe from [facility] regarding dc plans. Initially, Chloe was scheduled to assess pt on [facility]. TOMASZ notified Chleo this am pt transfer to medical floor. TOMASZ spoke w/Dr. Tellez who indicated pt could transition to [facility]/Hospice services either today or tomorrow. TOMASZ contacted Chloe at [facility] who stated they are unable to accept "new" pts on Fridays due to staffing. TOMASZ reported pt will likely continue to decline and waiting til Thursday is not what is in the best interest of the pt. Chloe will be talking w/her Fractionation Plant Supervisor, Pj and contacting this TOMASZ later today.
[2017-05-21 11:22] VITALS: BP 123/86
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
--- NOTE | 2017-05-21 15:57 | NUR ---
TOMASZ spoke w/CM to verify pt status and dc plan. Pt will likely not require ICU status by Thursday and will require reassessment for SBHU to meet criteria. TOMASZ spoke w/Chloe from [facility] regarding admission for pt either later today or Thursday w/Hospice. Chloe stated they would not be able to admit pt today and are not able to take any new admits on Fridays or over the weekends, resulting in admission for pt on Thursday. TOMSAZ contacted pt's DPOA, Patti to discuss dc plans. Due to pt's continued decline, it would be in the best interest of pt to admit to a facility w/Hospice prior to Thursday. Patti is absolutely against pt admitting to a facility on a Thursday or due to past experiences w/low staffing and defunct transition. TOMASZ attempted to help Patti to see the advantage of pt transitioning w/Hospice prior to Thursday in the event he continues to decline and would be unable to transport to a facility early next week. TOMASZ suggested [facility] as their staffing looks a little different w/their set up versus [facility]. Again, Patti was certain he did not approve of this idea. TOMASZ stated the ultimate decision would be left to the Doctors as they will determine on Thursday level of care. TOMASZ will follow up w/Patti once the doctors decide dc plans. TOMASZ also notified CM of current status.
--- NOTE | 2017-05-21 16:33 | NUR ---
Bladder scanned pt, result was >475ml. Did a straight cath on pt and received 500ml out. Pt in chair, drinking juice with LACI Pino.
[2017-05-21 21:00] VITALS: BP 136/84
--- NOTE | 2017-05-22 00:38 | NUR ---
Pt taken to [facility] room 109 at this time.
[2017-05-22 05:48] VITALS: BP 135/77
--- NOTE | 2017-05-22 07:43 | NUR ---
Pt has been very confused and wandering this morning. Pt has been calm but not easily redirected. Pt sat down in sitting area in rocking chair and personal alarm placed. Pt removed personal alarm and entered room 119. Pt grabbed on to other pt's IV tubing and refused to release it. Pt became slightly agitated and grabbed on to this nurse's arm. Pt did let go of this nurse's arm and allowed MECHANICAL DESIGN DRAFTER to lead him down mendoza toward his own room. Pt sitting in recliner, tipped back, in view of staff.
[2017-05-22] MEDS: LORazepam INTENSOL 2 MG/ML BOTTLE SL PRN (07:57)
--- NOTE | 2017-05-22 08:14 | NUR ---
IP: patient tests +for MRSA screen, requires contact precautions until 2 negative results 7 days apart.
--- NOTE | 2017-05-22 08:18 | NUR ---
IP: patient is disoriented and confused cannot be educated regarding MRSA status.
--- NOTE | 2017-05-22 10:07 | NUR ---
TOMASZ received information pt was denied readmit to [facility]. TOMASZ contacted pt's DPOA, Patti to discuss dc plans for today. Patti concerned pt is discharging too soon. TOMASZ explained the Dementia disease and services offered in an acute setting such as the hospital versus continuum of care offered thru Hospice at a facility. Pt is not receiving acute hospital level services, thus the reason for discharge. Patti does not feel pt is ready to dc and would like to appeal the dc. CM contact information provided for Patti to follow up w/regarding the appeal.
[2017-05-22] MEDS: MORPHINE SULFATE 10 MG/5 ML ORAL SOLUTION. PO PRN (10:42)
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
[2017-05-22] MEDS ORDERED: LORA2ORA2 SL (16:23)
[2017-05-22] MEDS ORDERED: MORP10SO PO (16:23)
--- NOTE | 2017-05-22 17:44 | NUR ---
Discharge Note: BEATRIZ BRICENO [facility] Discharge instructions and discharge home medications reviewed with [facility] NURSE and a copy given. All questions have been answered and understanding verbalized. The following instructions and handouts were given: MEDICATIONS, DIET, ACTIVITY, AND PLAN OF CARE Discontinued lines and drains: NO PERIPHERAL IV Patient discharged to [facility] via EMS.
== END 2017-05-22 17:30 | disposition hospice, inpatient (51) | DRG 683 ==
LOC: ICU 20:10 → 1 SOUTH 05-22 00:45
PROVIDERS: ADMIT Family Medicine; ATTEND Family Medicine
DX: N17.9 Acute kidney failure, unspecified (principal); E87.0 Hyperosmolality and hypernatremia; F01.51 Vascular dementia, unspecified severity, with behavioral disturbance; F02.81 Dementia in other diseases classified elsewhere, unspecified severity, with behavioral disturbance; G30.9 Alzheimer's disease, unspecified; E86.0 Dehydration; R62.7 Adult failure to thrive; I73.9 Peripheral vascular disease, unspecified; E78.5 Hyperlipidemia, unspecified; M19.90 Unspecified osteoarthritis, unspecified site; Z66 Do not resuscitate
CPT/HCPCS: 36415; 87641